=== PATIENT | male | born 1930 | race Caucasian/White ===

== ENCOUNTER 2018-09-17 11:00 | Inpatient (IN) | payer OTHER, MEDICARE ==
--- NOTE | 2018-09-12 10:46 | HP ---
Amended report to enter cosigning physician. HISTORY AND PHYSICAL: DATE OF SURGERY: 09/24/18 DATE OF OFFICE VISIT: 09/11/18 SURGEON: Sarina Montes MD* (dictated by FELICITY Escobar). PROCEDURE: Right total knee arthroplasty. CHIEF COMPLAINT: Right knee pain. HISTORY OF PRESENT ILLNESS: Mr. 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 He has failed conservative treatment and elected to proceed with the right total knee arthroplasty. PAST MEDICAL HISTORY: 1. Hypertension. 2. High cholesterol. 3. Diabetes. 4. Sleep apnea. PAST SURGICAL HISTORY: 1. Tonsillectomy. 2. Appendectomy. 3. Cyst removal from back. CURRENT MEDICATIONS: 1. Vitamin D. 2. Multivitamin. 3. Magnesium. 4. Nicotinamide riboside. 5. Pterostilbene 50 mg a day. 6. Irbesartan 150 mg a day. 7. Januvia 100 mg 1 tab before dinner. 8. Atorvastatin calcium 10 mg at q.h.s. 9. Metformin 500 mg twice a day. ALLERGIES: PENICILLIN and NYQUIL. FAMILY HISTORY: Diabetes, cancer, and stroke. SOCIAL HISTORY: He is an 87-year-old gentleman lives with his . He does not smoke or use drugs or alcohol. REVIEW OF SYSTEMS: A complete 14-point review of systems was reviewed with the patient, positive for diabetes. He denies history of DVT, PE, hepatitis, HIV, or anesthesia problems. PHYSICAL EXAMINATION GENERAL: He is a well developed, well nourished, in no acute distress. VITAL SIGNS: He stands 5 feet 6 inches tall, weighs 232 pounds, blood pressure 140/68, heart rate 70. HEENT: Normocephalic, atraumatic. NECK: Supple. No palpable lymph nodes. PULMONARY: Lungs are clear to auscultation bilaterally. CARDIO: Regular rate and rhythm. Strong S1 and S2. ABDOMEN: Soft, nontender, nondistended. NEUROLOGIC: He is alert and oriented x3. MUSCULOSKELETAL: Right lower extremity: The skin is intact. There are no open wounds or abrasions. There is a moderate effusion of the right knee joints. Some tenderness over the medial joint line. Range of motion is 20 to 120 degrees of flexion. He has a 2+ dorsalis pedis pulse. He is able to dorsiflex and plantarflex and has intact sensation. ASSESSMENT AND PLAN: Mr. Reyes is an 87-year-old gentleman with end-stage osteoarthritis of the right knee. He has failed conservative treatment and elected to proceed with the right total knee arthroplasty. The surgery was scheduled for 09/24/[address] Montes discussed the risks and benefits of the surgery at today's visit and all of his questions were answered. He will follow up with Dr. Montes 2 weeks after the surgery. FELICITY ESCOBAR [id number]/[facility] #: [id number] MARY JO
[2018-09-24] MEDS ORDERED: Tranexamic Acid 1,000 MG in NS 0.9% 50 ML* (outpatient use) IV SCH ×2
[2018-09-24] MEDS ORDERED: DiMENhydriNATE IV* 50 MG/ML VIAL IV PUSH PRN (05:42)
[2018-09-24] MEDS ORDERED: fentaNYL* 50 MCG/ML 2 ML VIAL (100 MCG VIAL) IV PRN (05:42)
[2018-09-24] MEDS ORDERED: oxyCODONE/Acetamin 5/325 MG* TAB PO PRN (05:42)
[2018-09-24] MEDS ORDERED: HYDROmorphone INJ1* 1 MG/ML SYRINGE IV PRN (05:42)
[2018-09-24] MEDS ORDERED: PROCHLORPERAZINE INJ 5 MG/ML 2 ML VIAL IV PRN (05:42)
[2018-09-24] MEDS ORDERED: Naloxone* 0.4 MG/ML 1 ML VIAL IV PRN (05:42)
--- OUTSIDE RECORDS SUMMARY | 2018-09-24 05:47 | XMS REPORT | Continuity of Care Document ---
:1930 External Reference #:[id number] Author Name Celine Scott Care Team Providers Name Role Phone Deysi Chen MD Primary Care Physician Unavailable Payers Date Identification Numbers Payment Provider Subscriber Policy Number: [id number] [employer] Maricarmen Eric Group Number: [id number] [address] Group Name: [facility] [place] [address] PayID: [id number] Advance Directives Type Date Description Status Comment Other Directive 09/13/2015 Health Care Proxy Current and Verified Problems Active Problems Provider Date Type 2 diabetes mellitus Erna Crenshaw M.D., FACP Onset: 09/15/2010 Hyperlipidemia Erna Crenshaw M.D., FACP Onset: 12/13/2010 Localized, primary osteoarthritis Sarina Montes M.D. 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 ETOH Use Rarely consumes alcohol Tobacco Use Start: Unknown Patient has never smoked Smoking Status Reviewed: 09/09/18 Patient has never smoked Exercise Exercises regularly Does Drik Chi, Weight Type/Frequency resistance training. Allergies, Adverse Reactions, Alerts Active Allergies Reaction Severity Comments Date Penicillin Urticaria Severe 01/13/2010 ALL "Cillins" 07/22/2018 Medications Active Medications SIG Qnty Indications Ordering Date Provider Irbesartan 1 by mouth every 90tabs I10 Hailey Bautista, 12/04/2017 150mg day N.P. Tablets R Knee Varus 09/09/18 reports 1units M17.11 Sarina Montes, 07/13/2017 Tufter Hand Brace not using use for M.D. ambulation at all times dx - severe r knee oa Onetouch Ultra Blue test up to three 300units Hailey Bautista, 09/10/2014 times a day or as N.P. Strips directed Metformin HCL ER Take 1 Tablet By 180tabs Hailey Bautista, 01/23/2014 Mouth Twice A Day N.P. 500mg Tablets ER 24HR Freestyle Lite Test test up to 4 times 650units Hailey Bautista, 10/01/2013 a day dx code: N.P. Strips e11.9 last seen 10/27/15 Freestyle Lite Blood check fingerstick 1units Erna Crenshaw, 09/26/2013 Glucose Monitoring daily M.D., FACP System Device Atorvastatin Calcium Take 1 Tablet By 90tabs Hailey Bautista, 06/04/2012 Mouth AT Bedtime N.P. 10mg Tablets Glucometer Erna Crenshaw, 07/21/2011 M.D., FACP Cpap pressure 16 Erna Crenshaw, 09/15/2010 M.D., FACP Cpap Mask And Erna Crenshaw, 09/15/2010 Supplies M.D., FACP Januvia Take 1 Tablet By 90tabs Hailey Bautista, 100mg Tablets Mouth 1 Hour N.P. Before Dinner Pterostilbene daily Unknown 50mg Nicotinamide daily Unknown Riboside Magnesium once a day Unknown 425mg Capsules Lovaza take 1 capsule 180caps Hailey Bautista, 1gm Capsules once a day N.P. Multivitamin 1 PO qd Unknown Vitamin D 400 1 po qd Unknown 2000Unit Chewtabs History Medications Azithromycin two tabs day one, 6tabs J20.9 Hailey Orrcarol, 07/04/2016 - 250mg one daily till N.P. 07/09/2016 Tablets gone Benzonatate one by mouth 30caps J20.9 Hailey Orrcarol, 07/04/2016 - 200mg three times daily N.P. 07/18/2016 Capsules as needed for cough T/S Test up to 4 100units Hailey Bautista, 04/19/2016 - Freestyle Strip times a day N.P. 04/27/2016 Freestyle Tamiflu 1 by mouth twice 10caps 466.0 Wade Horvath 07/15/2014 - 75mg Capsules a day x 5 days Mario Morales 09/28/2014 Zithromax Z-Manish as per directions 1Pack 466.0 Wade Horvath 07/15/2014 - 250mg Mario Morales 09/28/2014 Tablets Freestyle Lite two times daily 100units Hailey Bautista, 09/26/2013 - Lancets or as needed N.P. 04/27/2016 Valsartan-Hydrochlor Take 1 tablet by 90tabs I10 Hailey Bautista, 2013 - othiazide mouth daily N.P. 12/04/2017 160-12.5mg Tablets Ipratropium [place] instill 2 sprays 30units 478.9 Erna Crenshaw, 2013 - in each nostril M.D., FACP 09/25/2013 0.03% Solution twice a day Hydrocodone/Acetamin 1-2 tabs by mouth 12tabs 719.45 Erna Crenshaw, 2012 - ophen every 6 hours as M.D., FACP 09/25/2013 5-325mg Tablets needed Losartan Potassium 1 po qd 90tabs 401.1 Erna Crenshaw, 11/12/2012 - M.D., FACP 02/24/2013 50mg Tablets Valsartan/Hydrochlor Take 1 Tablet 90tabs 401.1 Erna Crenshaw, 06/04/2012 - othiazide Daily M.D., FACP 09/26/2013 160-12.5mg Tablets Azithromycin two tabs day one, 6tabs 466.0 Hailey Bautista, 06/04/2012 - 250mg one daily till N.P. 06/14/2012 Tablets gone Zolpidem Tartrate 1 tab at bedtime 20tabs 307.49 Erna Crenshaw, 08/24/2011 - 5mg as needed for M.D., [facility] 11/28/2011 Tablets sleep Provent SR Nasal Use as directed. 30units 307.49 Erna Crenshaw, 08/24/2011 - Device M.D., [facility] 11/28/2011 Test Strips use as tid 300units Erna Crenshaw, 07/21/2011 - directed M.D., [facility] 09/10/2014 Lancets use as directed 100units Erna Crenshaw, 07/21/2011 - M.D., [facility] 10/06/2014 Accu-Check Darlin use as directed 300units 250.00 Erna Crenshaw, 12/13/2010 - Test Strips M.D., [facility] 07/21/2011 Accu-Check Darlin use as directed 300units 250.00 Erna Crenshaw, 12/13/2010 - Lancet Drums M.D., [facility] 07/21/2011 Clindamycin HCL qid po 40caps Erna Crenshaw, 09/15/2010 - 150mg M.D., [facility] 12/13/2010 Capsules Physical Therapy Erna Crenshaw, 05/19/2010 - M.D., [facility] 09/15/2010 Right Shoulder Pain Freestyle Lite two times daily 100units Erna Rodon, 05/19/2010 - Lancets or as needed M.D., [facility] 12/13/2010 Freestyle Lite Test use as directed 100units Erna Crenshaw, 05/19/2010 - Strip two times daily M.D., [facility] 12/13/2010 or as needed dx:pcos/igt Loprox apply to affected 30gm Erna Crenshaw, 04/11/2010 - 0.77% Cream area bid M.D., FACP 12/13/2010 Zithromax Z-Manish two po initially 1Pack Erna Crenshaw, 03/28/2010 - 250mg then one po daily M.D., FACP 04/07/2010 Tablets Fluticasone 1 spray each 1bottle Erna Crenshaw, 03/28/2010 - Propionate nostril daily as M.D., FACP 04/07/2010 50mcg/Act needed Suspension Physical Therapy Erna Crenshaw, 01/17/2010 - R M.D., FACP 01/17/2010 Knee Aspirn 1 tablet daily 30tabs Ernamaria guadalupe Crenshaw, - 81mg Tablets M.D., FACP 07/21/2018 DR Miller HCT Take 1 Tablet 90tabs Erna Flower, - 160-12.5mg Daily M.D., FACP 06/04/2012 Tablets Lipitor Take 1 Tablet AT 90tabs Erna Flower, - 10mg Tablets Bedtime M.D., FACP 06/04/2012 Glucophage XR take 1 tablet 180tabs Hailey Varn, - 500mg twice a day N.P. 01/23/2014 Tablets ER 24HR [place]-3 & [place]-6 take one Unknown - Fish Oil capsule/tablet 07/21/2018 1200mg daily by mouth Capsules for ra Immunizations CPT Code Status Date Vaccine Lot # [id number] Given 01/15/2018 Influenza Virus Vaccine, Quadrivalent, Split, Preservative Free 30423 Given 11/27/2016 Pneumonia Vaccine [id number] Given 02/15/2015 Flu Vaccine NOS 96237 Given 10/06/2014 Pneumococcal Conjugate Vaccine 13 Valent For [id number] Intramuscular Use 81522 Given 01/31/2014 Influenza Virus Vaccine, Quadrivalent, Split, [id number] Preservative Free Q2036 Given 01/17/2013 Flulaval Vaccine [id number] Given 01/26/2012 Fluzone Vaccine [id number] 97972 Given 02/24/2011 Influenza Virus 3Yrs & Over 88449 Given 01/17/2010 Influenza Virus 3Yrs & Over 25156 Given 05/07/2008 Tetanus And Diptheria (Td) For Adult Use Preservative Free 73463 Given 05/07/2008 Tetanus And Diptheria (Td) For Adult Use Preservative Free 03774 Given 02/10/2008 Influenza Virus 3Yrs & Over 48625 Given 02/10/2008 Influenza Virus 3Yrs & Over 98215 Given 02/28/2007 Zoster (Zostavax) 49931 Given 02/28/2007 Influenza Virus 3Yrs & Over 77358 Given 02/28/2007 Influenza Virus 3Yrs & Over Vital Signs Date Vital Result Comment 09/09/2018 11:53am Height 65 inches 5'5" Weight 228.00 lb Heart Rate 75 /min BP Systolic Sitting 135 mmHg BP Diastolic Sitting 62 mmHg Body Temperature 97.7 F O2 % BldC Oximetry 96 % BMI (Body Mass Index) 37.9 kg/m2 07/22/2018 2:00pm Height 65 inches 5'5" Weight 226.00 lb Heart Rate 84 /min BP Systolic 138 mmHg BP Diastolic 60 mmHg Pain Level 0 BMI (Body Mass Index) 37.6 kg/m2 12/04/2017 9:16am Height 64.25 inches 5'4.25" Weight 225.00 lb Heart Rate 71 /min BP Systolic 138 mmHg BP Diastolic 88 mmHg Body Temperature 97.3 F O2 % BldC Oximetry 96 % BMI (Body Mass Index) 38.3 kg/m2 07/13/2017 10:13am Weight 232.50 lb Heart Rate 70 /min BP Systolic 138 mmHg BP Diastolic 72 mmHg Respiratory Rate 16 /min Body Temperature 98.0 F Pain Level 5 06/27/2017 3:49pm Weight 232.00 lb Heart Rate 69 /min BP Systolic 146 mmHg BP Diastolic 60 mmHg Body Temperature 98.3 F O2 % BldC Oximetry 96 % 12/04/2016 2:44pm Weight 235.00 lb Heart Rate 87 /min BP Systolic 118 mmHg BP Diastolic 60 mmHg Body Temperature 97.8 F O2 % BldC Oximetry 97 % 11/27/2016 2:16pm Height 64.25 inches 5'4.25" Weight 231.50 lb Heart Rate 78 /min BP Systolic 122 mmHg BP Diastolic 60 mmHg Body Temperature 97.8 F O2 % BldC Oximetry 97 % BMI (Body Mass Index) 39.4 kg/m2 07/04/2016 2:48pm Weight 230.50 lb Heart Rate 96 /min BP Systolic 130 mmHg BP Diastolic 60 mmHg Body Temperature 99.1 F O2 % BldC Oximetry 98 % 04/27/2016 8:40am Weight 228.00 lb Heart Rate 71 /min BP Systolic Sitting 140 mmHg BP Diastolic Sitting 60 mmHg Body Temperature 98.1 F O2 % BldC Oximetry 98 % 10/27/2015 10:42am Weight 221.00 lb Heart Rate 68 /min BP Systolic Sitting 130 mmHg BP Diastolic Sitting 82 mmHg Respiratory Rate 14 /min Body Temperature 98.1 F O2 % BldC Oximetry 98 % 09/10/2015 3:23pm Height 64.4 inches 5'4.40" Weight 222.25 lb Heart Rate 62 /min BP Systolic Sitting 136 mmHg BP Diastolic Sitting 55 mmHg Body Temperature 97.8 F O2 % BldC Oximetry 97 % BMI (Body Mass Index) 37.7 kg/m2 05/28/2015 4:02pm Height 65 inches 5'5" Weight 216.00 lb Heart Rate 64 /min BP Systolic Sitting 130 mmHg BP Diastolic Sitting 80 mmHg Respiratory Rate 15 /min O2 % BldC Oximetry 98 % BMI (Body Mass Index) 35.9 kg/m2 04/27/2015 9:06am Height 65 inches 5'5" Weight 216.00 lb Heart Rate 70 /min BP Systolic Sitting 126 mmHg BP Diastolic Sitting 82 mmHg Respiratory Rate 16 /min Body Temperature 98.4 F O2 % BldC Oximetry 98 % BMI (Body Mass Index) 35.9 kg/m2 10/06/2014 9:19am Height 65 inches 5'5" Weight 210.50 lb Heart Rate 66 /min BP Systolic Sitting 140 mmHg BP Diastolic Sitting 62 mmHg BMI (Body Mass Index) 35.0 kg/m2 07/15/2014 3:35pm Height 66 inches 5'6" Weight 208.75 lb Heart Rate 88 /min BP Systolic Sitting 138 mmHg BP Diastolic Sitting 54 mmHg Body Temperature 99.8 F O2 % BldC Oximetry 97 % BMI (Body Mass Index) 33.7 kg/m2 04/06/2014 8:50am Height 66 inches 5'6" Weight 209.00 lb Heart Rate 62 /min BP Systolic Sitting 98 mmHg BP Diastolic Sitting 60 mmHg Body Temperature 98.1 F O2 % BldC Oximetry 98 % BMI (Body Mass Index) 33.7 kg/m2 03/30/2014 9:27am Height 66 inches 5'6" Weight 204.00 lb Heart Rate 81 /min BP Systolic 130 mmHg BP Diastolic 68 mmHg BMI (Body Mass Index) 32.9 kg/m2 09/25/2013 10:20am Weight 209.25 lb Heart Rate 68 /min BP Systolic 122 mmHg BP Diastolic 52 mmHg Respiratory Rate 16 /min 06/30/2013 9:01am Weight 213.00 lb Heart Rate 72 /min BP Systolic Sitting 122 mmHg BP Diastolic Sitting 76 mmHg Respiratory Rate 15 /min Body Temperature 97.6 F 04/03/2013 3:46pm Weight 216.00 lb Heart Rate 74 /min BP Systolic Sitting 134 mmHg BP Diastolic Sitting 82 mmHg 02/24/2013 9:07am Weight 223.25 lb Heart Rate 60 /min BP Systolic Sitting 118 mmHg BP Diastolic Sitting 54 mmHg 11/12/2012 9:21am Weight 242.00 lb Heart Rate 76 /min BP Systolic Sitting 128 mmHg BP Diastolic Sitting 58 mmHg 06/04/2012 11:02am Height 65 inches 5'5" Weight 235.00 lb Heart Rate 78 /min BP Systolic Sitting 128 mmHg BP Diastolic Sitting 60 mmHg Body Temperature 98.5 F BMI (Body Mass Index) 39.1 kg/m2 05/15/2012 9:13am Height 65 inches 5'5" Weight 240.00 lb Heart Rate 80 /min BP Systolic Sitting 128 mmHg BP Diastolic Sitting 54 mmHg BMI (Body Mass Index) 39.9 kg/m2 05/15/2012 9:08am Height 65 inches 5'5" 11/28/2011 8:58am Height 65 inches 5'5" Weight 232.50 lb Heart Rate 76 /min BP Systolic Sitting 118 mmHg BP Diastolic Sitting 54 mmHg BMI (Body Mass Index) 38.7 kg/m2 08/24/2011 9:15am Height 65 inches 5'5" Weight 228.00 lb Heart Rate 64 /min BP Systolic Sitting 128 mmHg BP Diastolic Sitting 54 mmHg BMI (Body Mass Index) 37.9 kg/m2 04/26/2011 10:05am Height 65 inches 5'5" Weight 229.00 lb Heart Rate 68 /min BP Systolic Sitting 132 mmHg BP Diastolic Sitting 80 mmHg BMI (Body Mass Index) 38.1 kg/m2 12/13/2010 10:49am Height 65 inches 5'5" Weight 230.00 lb Heart Rate 72 /min BP Systolic Sitting 118 mmHg L BP Diastolic Sitting 62 mmHg L BMI (Body Mass Index) 38.3 kg/m2 09/15/2010 10:21am Height 65 inches 5'5" Weight 227.00 lb Heart Rate 80 /min BP Systolic Sitting 120 mmHg BP Diastolic Sitting 60 mmHg BMI (Body Mass Index) 37.8 kg/m2 06/06/2010 9:49am Weight 223.00 lb Heart Rate 60 /min BP Systolic 122 mmHg BP Diastolic 60 mmHg 05/19/2010 10:06am Weight 228.00 lb Heart Rate 78 /min BP Systolic 122 mmHg BP Diastolic 70 mmHg 03/28/2010 3:02pm Weight 229.00 lb Heart Rate 72 /min BP Systolic Sitting 120 mmHg BP Diastolic Sitting 50 mmHg Body Temperature 98.0 F oral Results Test Date Facility Test Result H/L Range Note CBC Auto Diff 09/09/2018 [facility] White Blood 10.2 10^3/uL N 3.5-10.[address] [place] [address] [phone] Red Blood Count 4.83 10^6/uL N 4.18-5.48 Hemoglobin 14.8 g/dL N 14.0-18.0 Hematocrit 44 % N 42-52 Mean Corpuscular Volume 91 fL N 80-94 Mean Corpuscular Hemoglobin 31 pg N 27-31 Mean Corpuscular HGB Conc 34 g/dL N 31-36 Red Cell Distribution Width 14 % N 10.5-15 Platelet Count 319 10^3/uL N 150-450 Mean Platelet Volume 7.6 fL N 7.4-10.4 Abs Neutrophils 5.9 10^3/uL N 1.5-7.7 Abs Lymphocytes 3.1 10^3/uL N 1.0-4.8 Abs Monocytes 0.9 10^3/uL High 0-0.8 Abs Eosinophils 0.1 10^3/uL N 0-0.6 Abs Basophils 0.1 10^3/uL N 0-0.2 Abs Nucleated RBC 0.0 10^3/uL Granulocyte % 58.4 % Lymphocyte % 30.8 % Monocyte % 9.0 % Eosinophil % 1.3 % Basophil % 0.5 % Nucleated Red Blood Cells % 0.2 Comp Metabolic Panel 09/09/2018 [facility] Sodium 140 mmol/L N 135-[address] [place] [address] [phone] Potassium 4.5 mmol/L N 3.5-5.0 Chloride 102 mmol/L N 101-111 Co2 Carbon Dioxide 30 mmol/L N 22-32 Anion Gap 8 mmol/L N 2-11 Glucose 143 mg/dL High 70-100 Blood Urea Nitrogen 13 mg/dL N 6-24 Creatinine 0.97 mg/dL N 0.67-1.17 BUN/Creatinine Ratio 13.4 N 8-20 Calcium 9.7 mg/dL N 8.6-10.3 Total Protein 7.0 g/dL N 6.4-8.9 Albumin 4.2 g/dL N 3.2-5.2 Globulin 2.8 g/dL N 2-4 Albumin/Globulin Ratio 1.5 N 1-3 Total Bilirubin 0.50 mg/dL N 0.2-1.0 Alkaline Phosphatase 90 U/L N 34-104 Alt 28 U/L N 7-52 Ast 19 U/L N 13-39 Egfr Non- 73.4 >60 Egfr 88.8 >60 1 Urinalysis Profile 09/09/2018 [facility] Urine Color Yellow [address] [place] [address] [phone] Urine Appearance Clear Urine Specific [place] 1.008 Low 1.010-1.030 Urine pH 8.0 N 5-9 Urine Urobilinogen Negative Negative Urine Ketones Negative Negative Urine Protein Negative Negative Urine Leukocytes Negative Negative Urine Blood Negative Negative Urine Nitrite Negative Negative Urine Bilirubin Negative Negative Urine Glucose Negative Negative Laboratory 09/06/2018 [facility] Hepatitis B Nonreactive Nonreactive test finding [address] [place] [address] [phone] Hepatitis C 09/06/2018 [facility] HCV Index < 0.0 Index Antibody [address] [place] [address] [phone] Hepatitis C Antibody Nonreactive Nonreactive HIV 1/2 AB 09/06/2018 [facility] HIV 1 2 Nonreactive Nonreactive [address] [place] [address] [phone] Laboratory test 09/06/2018 [facility] Syphillis Negative Negative finding [address] Igg W/[place] [address] [phone] Max Stone 09/06/2018 [facility] Ebv Capsid Positive Negative Comprehensive [address] [place] [address] [phone] Ebv Capsid Ag IgM Ab Negative Negative Max-Stone Nuclear Antigen Positive Negative Max-Stone Virus Interp See Comment 3 Laboratory test 09/06/2018 [facility] Hepatitis A IgM Negative Negative [address] [place] [address] [phone] HTLV 1/2 AB Negative Negative 5 CMV 09/05/2018 [facility] Cytomegalovirus Positive Abnormal Negative 6 Igg/Igm [address] [place] [address] [phone] Cytomegalovirus IgM Antibody Negative Negative Lipid Profile 11/27/2017 [facility] Triglycerides 81 mg/dL 7 (Trig/Chol/HDL) [address] [place] [address] [phone] Cholesterol 131 mg/dL 8 HDL Cholesterol 43.9 mg/dL 9 LDL Cholesterol 71 mg/dL 10 Laboratory test 11/27/2017 [facility] Hemoglobin A1c 6.0 % High 4.0-5.[address] (Glyco HGB) [place] [address] [phone] Urine 11/27/2017 [facility] Ur Microalbumin < 15.[address] (mg/L) [place] [address] [phone] Urine Creatinine 145.02 mg/dL Urine Microalbumin/Creatinine TNP <31 12 Comp Metabolic Panel 11/27/2017 [facility] Sodium 141 mmol/L N 135-[address] [place] [address] [phone] Potassium 4.8 mmol/L N 3.5-5.0 Chloride 107 mmol/L N 101-111 Co2 Carbon Dioxide 26 mmol/L N 22-32 Anion Gap 8 mmol/L N 2-11 Glucose 121 mg/dL High 70-100 Blood Urea Nitrogen 19 mg/dL N 6-24 Creatinine 1.07 mg/dL N 0.67-1.17 BUN/Creatinine Ratio 17.8 N 8-20 Calcium 9.2 mg/dL N 8.6-10.3 Total Protein 6.5 g/dL N 6.4-8.9 Albumin 4.1 g/dL N 3.2-5.2 Globulin 2.4 g/dL N 2-4 Albumin/Globulin Ratio 1.7 N 1-3 Total Bilirubin 0.30 mg/dL N 0.2-1.0 Alkaline Phosphatase 74 U/L N 34-104 Alt 23 U/L N 7-52 Ast 19 U/L N 13-39 Egfr Non- 65.5 >60 Egfr 79.3 >60 13 Xray 07/13/2017 [facility] Knee 3 Views RT <pending> [address] [place] [address] [phone] Laboratory test 06/27/2017 [facility] Hemoglobin A1c 6.9 5-7 finding Lipid Profile 11/17/2016 [facility] Triglycerides 126 mg/dL N 14 (Trig/Chol/HDL) [address] [place], [place] [id number] [phone] Cholesterol 140 mg/dL N 15 HDL Cholesterol 39.7 mg/dL N 16 LDL Cholesterol 75 mg/dL N 17 Laboratory test 11/17/2016 [facility] Hemoglobin A1c 6.5 % High Less [address] (Glyco HGB) than 6.0 [place], [place] [id number] [phone] Urine 11/17/2016 [facility] Urine 122.[address] Creatinine mg/[place] [address] [phone] Ur Microalbumin (mg/L) < 15.0 mg/L N Urine Microalbumin/Creatinine TNP ug/mg N <31 19 Laboratory test 04/27/2016 [facility] Hemoglobin A1c 5.6 5-7 finding Lipid Profile 10/18/2015 [facility] Triglycerides 94 mg/dL N 20 (Trig/Chol/HDL) [address] [place] [address] [phone] Cholesterol 143 mg/dL N 21 HDL Cholesterol 41.1 mg/dL N 22 LDL Cholesterol 83 mg/dL N 23 Laboratory test 10/18/2015 [facility] Hemoglobin A1c 5.7 % N Less [address] (Glyco HGB) than 6.0 [place] [address] [phone] Urine 10/18/2015 [facility] Ur Microalbumin < 5.[address] Microalbumin [address] (mg/L) mg/[place] [address] [phone] Urine Creatinine 102.57 mg/dL N Urine Microalbumin/Creatinine TNP ug/mg N <31 25 Laboratory test 09/22/2015 [facility] Point of 135 mg/dL High 74-106 [address] Care Glucose [place], [place] [id number] [phone] Laboratory test 09/15/2015 [facility] Point of 144 mg/dL High 74-106 [address] [place] [address] [phone] Comp Metabolic 09/10/2015 [facility] Sodium 138 mmol/L N 133- [address] [place] [address] [phone] Potassium 4.5 mmol/L N 3.5-5.0 Chloride 106 mmol/L N 101-111 Co2 Carbon Dioxide 27 mmol/L N 22-32 Anion Gap 5 mmol/L N 2-11 Glucose 88 mg/dL N 70-100 Blood Urea Nitrogen 27 mg/dL High 6-24 Creatinine 0.93 mg/dL N 0.67-1.17 BUN/Creatinine Ratio 29.0 High 8-20 Calcium 8.7 mg/dL N 8.6-10.3 Total Protein 6.4 g/dL N 6.4-8.9 Albumin 4.0 g/dL N 3.2-5.2 Globulin 2.4 g/dL N 2-4 Albumin/Globulin Ratio 1.7 N 1-3 Total Bilirubin 0.40 mg/dL N 0.2-1.0 Alkaline Phosphatase 56 U/L N 34-104 Alt 20 U/L N 7-52 Ast 19 U/L N 13-39 Egfr Non- 77.6 N >60 Egfr 99.8 N >60 28 CBC Auto Diff 09/10/2015 [facility] White Blood 8.0 10^3/uL N 3.5-10.[address] [place] [address] [phone] Red Blood Count 4.45 10^6/uL N 4.0-5.4 Hemoglobin 13.7 g/dL Low 14.0-18.0 Hematocrit 41 % Low 42-52 Mean Corpuscular Volume 93 fL N 80-94 Mean Corpuscular Hemoglobin 31 pg N 27-31 Mean Corpuscular HGB Conc 33 g/dL N 31-36 Red Cell Distribution Width 14 % N 10.5-15 Platelet Count 263 10^3/uL N 150-450 Mean Platelet Volume 8 um3 N 7.4-10.4 Abs Neutrophils 4.3 10^3/uL N 1.5-7.7 Abs Lymphocytes 2.8 10^3/uL N 1.0-4.8 Abs Monocytes 0.7 10^3/uL N 0-0.8 Abs Eosinophils 0.2 10^3/uL N 0-0.6 Abs Basophils 0.1 10^3/uL N 0-0.2 Abs Nucleated RBC 0 10^3/uL N Granulocyte % 53.4 % N 38-83 Lymphocyte % 35.2 % N 25-47 Monocyte % 8.5 % N 1-9 Eosinophil % 2.0 % N 0-6 Basophil % 0.9 % N 0-2 Nucleated Red Blood Cells % 0 N Laboratory test 04/27/2015 [facility] Hemoglobin A1c 5.3 5-7 finding Laboratory test 10/28/2014 [facility] Surgical Pathology SEE RESULT [address] [place] [address] [phone] Urine Microalbumin 10/06/2014 [facility] Ur Microalbumin < 5.0 mg/L N Random [address] (mg/L) [place] [address] [phone] Urine Creatinine 38.56 mg/dL N Urine Microalbumin/Creatinine TNP ug/mg N <31 30 Laboratory test 10/06/2014 [facility] Hemoglobin A1c 5.0 5-7 finding Comp Metabolic 09/29/2014 [facility] Sodium 138 mmol/L N 133- 145 [address] [place] [address] [phone] Potassium 3.9 mmol/L N 3.5-5.0 Chloride 105 mmol/L N 101-111 Co2 Carbon Dioxide 29 mmol/L N 22-32 Anion Gap 4 mmol/L N 2-11 Glucose 111 mg/dL High 70-100 Blood Urea Nitrogen 19 mg/dL N 6-24 Creatinine 1.08 mg/dL N 0.67-1.17 BUN/Creatinine Ratio 17.6 N 8-20 Calcium 9.1 mg/dL N 8.6-10.3 Total Protein 6.3 g/dL Low 6.4-8.9 Albumin 4.1 g/dL N 3.2-5.2 Globulin 2.2 g/dL N 2-4 Albumin/Globulin Ratio 1.9 N 1-3 Total Bilirubin 0.70 mg/dL N 0.2-1.0 Alkaline Phosphatase 51 U/L N 34-104 Alt 16 U/L N 7-52 Ast 17 U/L N 13-39 Egfr Non- 65.5 N >60 Egfr 84.2 N >60 32 Lipid Profile 09/29/2014 [facility] Triglycerides 88 mg/dL N 33 (Trig/Chol/HDL) [address] [place] [address] [phone] Cholesterol 116 mg/dL N 34 HDL Cholesterol 38.8 mg/dL N 35 LDL Cholesterol 60 mg/dL N 36 Laboratory test 04/06/2014 [facility] Hemoglobin A1c 5.1 5-7 finding Laboratory test 06/25/2013 [facility] Hemoglobin A1c 5.4 % Less than [address] 6[address]0 [place] [address] [phone] Basic Metabolic 04/03/2013 [facility] Sodium 136 mmol/L 133- [address] [place] [address] [phone] Potassium 4.7 mmol/L 3.5-5.0 Chloride 101 mmol/L 101-111 Co2 Carbon Dioxide 29.0 mmol/L 22-32 Anion Gap 6.0 mmol/L 2-11 Glucose 94 mg/dL 70-100 Blood Urea Nitrogen 24 mg/dL 6-24 Creatinine 0.90 mg/dL 0.50-1.40 BUN/Creatinine Ratio 26.7 High 8-20 Calcium 9.4 mg/dL 8.1-9.9 Egfr Non- 81.0 >60 Egfr 104.2 >60 38 Urine Microalbumin 02/24/2013 [facility] Ur Microalbumin < 2 mg/ L [address] (mg/L) [place] [address] [phone] Urine Creatinine 62.5 mg/dL Urine Microalbumin/Creatinine 3.2 Less Than 31 Lipid Profile 02/19/2013 [facility] Triglycerides 74 mg/dL 40 -200 (Trig/Chol/HDL) [address] [place] [address] [phone] Cholesterol 144 mg/dL Less than 200 HDL Cholesterol 39 mg/dL Low 40-60 40 Cholesterol/HDL Ratio 3.7 Average 1-4.44 LDL Cholesterol 90.2 Less Than 100 41 Laboratory test 02/19/2013 [facility] Hemoglobin A1c 5.7 % Less than [address] [place] [address] [phone] Laboratory test 11/12/2012 [employer] In House Hemoglobin A1c 6.4 5-7 finding Laboratory test 11/05/2012 [facility] Hemoglobin A1c 6.7 % High Less than [address] [place] [address] [phone] Comp Metabolic 11/05/2012 [facility] Sodium 141 133-[address] mmol/[place] [address] [phone] Potassium 4.5 mmol/L 3.5-5.0 Chloride 107 mmol/L 101-111 Co2 Carbon Dioxide 28.0 mmol/L 22-32 Anion Gap 6.0 mmol/L 2-11 Glucose 122 mg/dL High 70-100 Blood Urea Nitrogen 16 mg/dL 6-24 Creatinine 1.10 mg/dL 0.50-1.40 BUN/Creatinine Ratio 14.5 8-20 Calcium 9.1 mg/dL 8.1-9.9 Total Protein 6.4 g/dL 6.2-8.1 Albumin 3.6 g/dL 3.2-5.2 Globulin 2.8 g/dL 2-4 Albumin/Globulin Ratio 1.3 1-3 Total Bilirubin 0.8 mg/dL 0.4-1.5 Alkaline Phosphatase 58 U/L 30-110 Alt 37 U/L 14-54 Ast 22 U/L 12-42 Egfr Non- 64.2 >60 Egfr 82.6 >60 44 Lipid Profile 11/05/2012 [facility] Triglycerides 106 mg/dL 40-200 (Trig/Chol/HDL) [address] [place] [address] [phone] Cholesterol 132 mg/dL Less than 200 HDL Cholesterol 35 mg/dL Low 40-60 45 Cholesterol/HDL Ratio 3.8 Average 1-4.44 LDL Cholesterol 75.8 Less Than 100 46 Laboratory test 05/15/2012 Senior Safety Support [employer] In House Hemoglobin A1c 6.3 5-7 finding Urine Microalbumin 11/22/2011 [facility] Microalbumin (MG/L) 3.0 mg/L Random [address] [place] [address] [phone] Urine Creatinine 156.0 mg/dL Nasim Alb/Creatinine Ratio 1.9 UG/MG Less Than 30 47 Comp Metabolic Panel 11/22/2011 [facility] Sodium 136 mmol/L 135-[address] [place] [address] [phone] Potassium 3.9 mmol/L 3.5-5.0 Chloride 103 mmol/L 101-111 Co2 (Carbon Dioxide) 28.0 mmol/L 22-32 Anion Gap 5.0 mmol/L 2-11 48 Glucose 115 mg/dL High 70-100 BUN 16 mg/dL 6-24 Creatinine 1.2 mg/dL 0.50-1.40 One Over Creatinine 0.83 BUN/Creatinine Ratio 13.3 8-20 Calcium 8.7 mg/dL 8.1-9.9 Total Protein 5.7 GM/DL Low 6.2-8.1 Albumin 3.4 GM/DL 3.2-5.2 Globulin 2.3 GM/DL 2-4 Albumin/Globulin Ratio 1.5 1-3 Bilirubin Total 0.9 mg/dL 0.4-1.5 49 Alkaline Phosphatase 65 U/L 39-117 Alt (SGPT) 28 U/L 17-63 Ast (Sgot) 21 U/L 12-42 eGFR Non- 58.3 > 60 eGFR 74.9 > 60 50 Lipid Profile 11/22/2011 [facility] Triglyceride 80 mg/dL 40- 200 (Trig/Chol/HDL) [address] [place] [address] [phone] Cholesterol 123 mg/dL Less Than 200 51 High Density Lipoprotein 38 mg/dL Low 40-60 52 Cholesterol/HDL Ratio 3.24 AVERAGE 1-4.97 Low Density Lipoprotein 69 mg/dL Less Than 100 53 Laboratory test 11/22/2011 [facility] Hemoglobin A1c 6.0 % Less [address] [place] [address] [phone] Laboratory test 08/21/2011 [facility] Hemoglobin A1c 5.9 % Less [address] [place] [address] [phone] Laboratory test 04/18/2011 [facility] Hemoglobin A1c 5.7 % Less [address] [place] [address] [phone] Order 12/13/2010 [facility] urine Negative [address] [place] [address] [phone] Comp Metabolic 12/06/2010 [facility] Sodium 140 mmol/L 135- [address] [place] [address] [phone] Potassium 4.2 mmol/L 3.5-5.0 Chloride 103 mmol/L 101-111 Co2 (Carbon Dioxide) 30.0 mmol/L 22-32 Anion Gap 7.0 mmol/L 2-11 57 Glucose 111 mg/dL High 70-100 BUN 12 mg/dL 6-24 Creatinine 1.00 mg/dL 0.50-1.40 One Over Creatinine 1.00 BUN/Creatinine Ratio 12.0 8-20 Calcium 9.1 mg/dL 8.1-9.9 Total Protein 6.4 GM/DL 6.2-8.1 Albumin 3.8 GM/DL 3.2-5.2 Globulin 2.6 GM/DL 2-4 Albumin/Globulin Ratio 1.5 1-3 Bilirubin Total 0.8 mg/dL 0.4-1.5 58 Alkaline Phosphatase 65 U/L 39-117 Alt (SGPT) 32 U/L 17-63 Ast (Sgot) 24 U/L 12-42 eGFR Non- 72.1 > 60 eGFR 92.7 > 60 59 Lipid Profile 12/06/2010 [facility] Triglyceride 68 mg/dL 40- 200 (Trig/Chol/HDL) [address] [place] [address] [phone] Cholesterol 128 mg/dL Less Than 200 60 High Density Lipoprotein 38 mg/dL Low 40-60 61 Cholesterol/HDL Ratio 3.37 AVERAGE 1-4.97 Low Density Lipoprotein 76 mg/dL Less Than 100 62 Laboratory test 12/06/2010 [facility] Hemoglobin A1c 6.0 % Less Than [address] [place] [address] [phone] 1 Because ethnic data is not always readily available, this report includes an eGFR for both -Americans and non- Americans. The National Kidney Disease Education Program (NKDEP) does not endorse the use of the MDRD equation for patients that are not between the ages of 18 and 70, are , have extremes of body size, muscle mass, or nutritional status, or are non- or non-. According to the National Kidney Foundation, irrespective of diagnosis, the stage of the disease is based on the level of kidney function: Stage Description GFR(mL/min/1.73 m(2)) 1 Kidney damage with normal or decreased GFR 90 2 Kidney damage with mild decrease in GFR 60-89 3 Moderate decrease in GFR 30-59 4 Severe decrease in GFR 15-29 5 Kidney failure <15 (or dialysis) 2 It is recognized that currently available assays for the detection of antibodies to HIV-1 and/or HIV-2 may not detect all infected individuals. HIV antibodies may be undetectable in some stages of the infection and in some clinical conditions. The performance of this assay has not been established for populations of infants or children. Assayed by Chemiluminescence Microparticle Immunoassay on the Siemens Advia Centaur CP. Values obtained with different methods or kits cannot be used interchangeably.The diagnostic specificity of the ADVIA Centaur 1/O/2 Enhanced assay in the low risk population was 99.90% (6052/6058) with a 95% confidence interval of 99.78 to 99.96%. 3 RESULT: Results suggest past infection. ADDITIONAL INFORMATION In most populations, at least 90% of the adult population will have been infected with EBV sometime in the past and therefore, will be positive for anti-VCA/IgG and anti- EBNA. Antibodies to EBNA develop 6-8 weeks after primary infection and remain present for life. Presence of VCA/ IgM antibodies indicates recent primary infection with EBV. Test Performed by: [place] [address] 4 Result does not exclude the possibility of exposure to hepatitis A virus. Antibody level during early infection stage may be below the limit of detection of the assay. Test Performed by: [place] [address] 5 Test Performed by: [place] [address] 6 Test Performed by: [place] [address] 7 Desirable: <150 Borderline High: 150-199 High: 200-499 Very High: >500 8 Desirable: <200 Borderline High: 200-239 High: >239 9 Low: <40 Desirable: 40-60 High: >60 10 Desirable: <100 Near Optimal: 100-129 Borderline High: 130-159 High: 160-189 Very High: >189 11 Therapeutic target for the treatment of diabetes mellitus patients is <7% HBA1C, and in selective patients <6.0%. Please refer to [place] [employer] diabetic care guidelines for further information. 12 Unable to calculate due to low microalbumin 13 Because ethnic data is not always readily available, this report includes an eGFR for both -Americans and non- Americans. The National Kidney Disease Education Program (NKDEP) does not endorse the use of the MDRD equation for patients that are not between the ages of 18 and 70, are , have extremes of body size, muscle mass, or nutritional status, or are non- or non-. According to the National Kidney Foundation, irrespective of diagnosis, the stage of the disease is based on the level of kidney function: Stage Description GFR(mL/min/1.73 m(2)) 1 Kidney damage with normal or decreased GFR 90 2 Kidney damage with mild decrease in GFR 60-89 3 Moderate decrease in GFR 30-59 4 Severe decrease in GFR 15-29 5 Kidney failure <15 (or dialysis) 14 Desirable <150 Borderline high 150-199 High 200-499 Very High >500 15 Desirable <200 Borderline high 200-239 High >239 16 Low <40 Desirable: 40-60 High: >60 17 Desirable: <100 mg/dL Near Optimal: 100-129 mg/dL Borderline High: 130-159 mg/dL High: 160-189 mg/dL Very High: >189 mg/dL 18 Therapeutic target for the treatment of diabetes Mellitus patients is <7% HBA1C, and in selective patients <6.0%.Please refer to [place] [employer] Diabetic care guidelines for further information. 19 Unable to calculate due to low microalbumin 20 Desirable <150 Borderline high 150-199 High 200-499 Very High >500 21 Desirable <200 Borderline high 200-239 High >239 22 Low <40 Desirable: 40-60 High: >60 23 Desirable: <100 mg/dL Near Optimal: 100-129 mg/dL Borderline High: 130-159 mg/dL High: 160-189 mg/dL Very High: >189 mg/dL 24 Therapeutic target for the treatment of diabetes Mellitus patients is <7% HBA1C, and in selective patients <6.0%.Please refer to [place] [employer] Diabetic care guidelines for further information. 25 Unable to calculate due to low microalbumin 26 Factory Laborer: [id number] CHARLI ALEJANDRE 27 Factory Laborer: [id number] KO GONZALEZ 28 Because ethnic data is not always readily available, this report includes an eGFR for both -Americans and non- Americans. The National Kidney Disease Education Program (NKDEP) does not endorse the use of the MDRD equation for patients that are not between the ages of 18 and 70, are , have extremes of body size, muscle mass, or nutritional status, or are non- or non-. According to the National Kidney Foundation, irrespective of diagnosis, the stage of the disease is based on the level of kidney function: Stage Description GFR(mL/min/1.73 m(2)) 1 Kidney damage with normal or decreased GFR 90 2 Kidney damage with mild decrease in GFR 60-89 3 Moderate decrease in GFR 30-59 4 Severe decrease in GFR 15-29 5 Kidney failure <15 (or dialysis) 29 SEE RESULT BELOW Name: MARICARMEN HOWELL : [address]: Servando Rodriguez MD Acct: [id number] Unit: [id number] AGE: 84 Location: ENDO Re10/28/14 SEX: M Status: REG REF SPEC: [id number] POOL: 10/28/14-[address] [facility] [address]: Servando Rodriguez MD REQ: [id number] RECD: 10/28/14-6060 STATUS: SHELLI SALAS DR: Hailey Bautista PLASTIC SURGERY COORDINATOR _ ORDERED: LEVEL IV FINAL DIAGNOSIS Colon, 35 cm, biopsy: -- Hyperplastic polyp. CLINICAL HISTORY Screening colonoscopy POST-OPERATIVE DIAGNOSIS Screening colonoscopy into cecum, prep good - small sigmoid colon polyp removed, sigmoid diverticulosis. GROSS DESCRIPTION The specimen is received in formalin labeled, Colon Polyp at 35 cm, and consists of a 0.6 x 0.5 x 0.1 cm wayne mucosal shave, which is submitted entirely in one cassette. Signed (signature on file) Jose Francisco Smith MD 134 END OF REPORT * ML=Testing performed at Main Lab DEPARTMENT OF PATHOLOGY, [address] [place] [address] Jose Francisco Smith M.D. Director [facility] # [id number] 30 Unable to calculate due to low microalbumin 31 PT IS FASTING 32 Because ethnic data is not always readily available, this report includes an eGFR for both -Americans and non- Americans. The National Kidney Disease Education Program (NKDEP) does not endorse the use of the MDRD equation for patients that are not between the ages of 18 and 70, are , have extremes of body size, muscle mass, or nutritional status, or are non- or non-. According to the National Kidney Foundation, irrespective of diagnosis, the stage of the disease is based on the level of kidney function: Stage Description GFR(mL/min/1.73 m(2)) 1 Kidney damage with normal or decreased GFR 90 2 Kidney damage with mild decrease in GFR 60-89 3 Moderate decrease in GFR 30-59 4 Severe decrease in GFR 15-29 5 Kidney failure <15 (or dialysis) 33 Desirable <150 Borderline high 150-199 High 200-499 Very High >500 34 Desirable <200 Borderline high 200-239 High >239 35 Low <40 Desirable: 40-60 High: >60 36 Desirable: <100 mg/dL Near Optimal: 100-129 mg/dL Borderline High: 130-159 mg/dL High: 160-189 mg/dL Very High: >189 mg/dL 37 Therapeutic target for the treatment of diabetes Mellitus patients is <7% HBA1C, and in selective patients <6.0%.Please refer to [place] [employer] Diabetic care guidelines for further information. 38 Because ethnic data is not always readily available, this report includes an eGFR for both -Americans and non- Americans. The National Kidney Disease Education Program (NKDEP) does not endorse the use of the MDRD equation for patients that are not between the ages of 18 and 70, are , have extremes of body size, muscle mass, or nutritional status, or are non- or non-. According to the National Kidney Foundation, irrespective of diagnosis, the stage of the disease is based on the level of kidney function: Stage Description GFR(mL/min/1.73 m(2)) 1 Kidney damage with normal or decreased GFR 90 2 Kidney damage with mild decrease in GFR 60-89 3 Moderate decrease in GFR 30-59 4 Severe decrease in GFR 15-29 5 Kidney failure <15 (or dialysis) 39 Microalbuminuria in a random sample is defined as: Microalbumin/Creatinine ratio of 30-299 ug/mg. 40 HDL Interpretation: Undesirable: High Risk: Less than 40 mg/dL Desirable: Low Risk: Greater than 60 mg/dL 41 LDL Interpretation: Low Risk Optimal Level: LDL Less than 100 mg/dL Near or Above Optimal: LDL 100-129 mg/dL Borderline High Risk: LDL 130-159 mg/dL High Risk: LDL 160-189 mg/dL Very High Risk: LDL Greater than 189 mg/dL 42 Therapeutic target for the treatment of diabetes Mellitus patients is <7% HBA1C, and in selective patients <6.0%.Please refer to [place] [employer] Diabetic care guidelines for further information. 43 Therapeutic target for the treatment of diabetes Mellitus patients is <7% HBA1C, and in selective patients <6.0%.Please refer to [place] [employer] Diabetic care guidelines for further information. 44 Because ethnic data is not always readily available, this report includes an eGFR for both -Americans and non- Americans. The National Kidney Disease Education Program (NKDEP) does not endorse the use of the MDRD equation for patients that are not between the ages of 18 and 70, are , have extremes of body size, muscle mass, or nutritional status, or are non- or non-. According to the National Kidney Foundation, irrespective of diagnosis, the stage of the disease is based on the level of kidney function: Stage Description GFR(mL/min/1.73 m(2)) 1 Kidney damage with normal or decreased GFR 90 2 Kidney damage with mild decrease in GFR 60-89 3 Moderate decrease in GFR 30-59 4 Severe decrease in GFR 15-29 5 Kidney failure <15 (or dialysis) 45 HDL Interpretation: Undesirable: High Risk: Less than 40 mg/dL Desirable: Low Risk: Greater than 60 mg/dL 46 LDL Interpretation: Low Risk Optimal Level: LDL Less than 100 mg/dL Near or Above Optimal: LDL 100-129 mg/dL Borderline High Risk: LDL 130-159 mg/dL High Risk: LDL 160-189 mg/dL Very High Risk: LDL Greater than 189 mg/dL 47 MICROALBUMINURIA IN A RANDOM SAMPLE IS DEFINED : MICROALBUMIN/CREATININE RATIO OF 30-299 ug/mg. . 48 Anion gap measurement may be of limited value in the presence of any alkalosis, especially in a combined acid base disorder. . 49 A metabolite of Naproxen, O-desmethylnaproxen, has been shown to interfere with the [facility] method for measuring total bilirubin. Samples from patients who have taken Naproxen have shown spurious elevation in total bilirubin levels. 50 Because ethnic data is not always readily available, this report includes an eGFR for both -Americans and non- Americans. The National Kidney Disease Education Program (NKDEP) does not endorse the use of the MDRD equation for patients that are not between the ages of 18 and 70, are , have extremes of body size, muscle mass, or nutritional status, or are non- or non-. According to the National Kidney Foundation, irrespective of diagnosis, the stage of the disease is based on the level of kidney function: Stage Description GFR(mL/min/1.73 m(2)) 1 Kidney damage with normal or decreased GFR 90 2 Kidney damage with mild decrease in GFR 60-89 3 Moderate decrease in GFR 30-59 4 Severe decrease in GFR 15-29 5 Kidney failure <15 (or dialysis) 51 CHOLESTEROL INTERPRETATION: Desirable: Less than 200 MG/DL Borderline-High Risk: 200-239 MG/DL High-Risk: 240 MG/DL and over 52 HDL INTERPRETATION: Undesirable: High Risk: Less than 40 MG/DL Desirable: Low Risk: Greater than 60 MG/DL 53 LDL INTERPRETATION: Low Risk Optimal Level: LDL Less than 100 MG/DL Near or Above Optimal: LDL 100-129 MG/DL Borderline High Risk: LDL 130-159 MG/DL High Risk: LDL 160-189 MG/DL Very High Risk: LDL Greater than 189 MG/DL 54 THERAPEUTIC TARGET FOR THE TREATMENT OF DIABETES MELLITUS PATIENTS IS <7% HBA1C, AND IN SELECTIVE PATIENTS <6.0%. PLEASE REFER TO [place] [employer] DIABETIC CARE GUIDELINES FOR FURTHER INFORMATION. 55 THERAPEUTIC TARGET FOR THE TREATMENT OF DIABETES MELLITUS PATIENTS IS <7% HBA1C, AND IN SELECTIVE PATIENTS <6.0%. PLEASE REFER TO [place] [employer] DIABETIC CARE GUIDELINES FOR FURTHER INFORMATION. 56 THERAPEUTIC TARGET FOR THE TREATMENT OF DIABETES MELLITUS PATIENTS IS <7% HBA1C, AND IN SELECTIVE PATIENTS <6.0%. PLEASE REFER TO [place] [employer] DIABETIC CARE GUIDELINES FOR FURTHER INFORMATION. 57 Anion gap measurement may be of limited value in the presence of any alkalosis, especially in a combined acid base disorder. . 58 A metabolite of Naproxen, O-desmethylnaproxen, has been shown to interfere with the [place] method for measuring total bilirubin. Samples from patients who have taken Naproxen have shown spurious elevation in total bilirubin levels. 59 Because ethnic data is not always readily available, this report includes an eGFR for both -Americans and non- Americans. The National Kidney Disease Education Program (NKDEP) does not endorse the use of the MDRD equation for patients that are not between the ages of 18 and 70, are , have extremes of body size, muscle mass, or nutritional status, or are non- or non-. According to the National Kidney Foundation, irrespective of diagnosis, the stage of the disease is based on the level of kidney function: Stage Description GFR(mL/min/1.73 m(2)) 1 Kidney damage with normal or decreased GFR 90 2 Kidney damage with mild decrease in GFR 60-89 3 Moderate decrease in GFR 30-59 4 Severe decrease in GFR 15-29 5 Kidney failure <15 (or dialysis) 60 CHOLESTEROL INTERPRETATION: Desirable: Less than 200 MG/DL Borderline-High Risk: 200-239 MG/DL High-Risk: 240 MG/DL and over 61 HDL INTERPRETATION: Undesirable: High Risk: Less than 40 MG/DL Desirable: Low Risk: Greater than 60 MG/DL 62 LDL INTERPRETATION: Low Risk Optimal Level: LDL Less than 100 MG/DL Near or Above Optimal: LDL 100-129 MG/DL Borderline High Risk: LDL 130-159 MG/DL High Risk: LDL 160-189 MG/DL Very High Risk: LDL Greater than 189 MG/DL 63 THERAPEUTIC TARGET FOR THE TREATMENT OF DIABETES MELLITUS PATIENTS IS <7% HBA1C, AND IN SELECTIVE PATIENTS <6.0%. PLEASE REFER TO [place] [employer] DIABETIC CARE GUIDELINES FOR FURTHER INFORMATION. Procedures Date Code Description Status 09/09/2018 [id number] EKG Tracing & Interpretation Completed 07/30/2018 [id number] Diabetic Retinal Eye Exam Completed 01/24/2018 [id number] Diabetic Retinal Eye Exam Completed 07/06/2017 [id number] Diabetic Retinal Eye Exam Completed 11/28/2016 [id number] Diabetic Retinal Eye Exam Completed 05/30/2016 [id number] Diabetic Retinal Eye Exam Completed 09/10/2015 [id number] EKG Tracing & Interpretation Completed 06/07/2015 [id number] Diabetic Retinal Eye Exam Completed 11/27/2014 [id number] Diabetic Retinal Eye Exam Completed 10/28/2014 [id number] Colonoscopy Completed 04/21/2014 [id number] Diabetic Retinal Eye Exam Completed 08/07/2012 [id number] Diabetic Retinal Eye Exam Completed 12/13/2010 [id number] EKG Tracing & Interpretation Completed 12/07/2008 [id number] EKG Tracing & Interpretation Completed 08/02/2004 [id number] Colonoscopy Completed Encounters Type Date Location Provider Dx Diagnosis Office Visit 07/22/2018 Orthopedic Sarina Montes, M25.561 Pain in right 2:00p [facility] knee M25.461 Effusion, right knee M17.0 Bilateral primary osteoarthritis of knee Office Visit 12/04/2017 9:20a [facility] Hailey Bautista, Z00.00 Encntr for Medicine N.P. general adult medical exam w/o abnormal findings E11.9 Type 2 diabetes mellitus without complications E78.5 Hyperlipidemia, unspecified M17.0 Bilateral primary osteoarthritis of knee I10 Essential (primary) hypertension M25.552 Pain in left hip M65.841 Other synovitis and tenosynovitis, right hand Office Visit 07/13/2017 9:30a Orthopedic Sarina M17.0 Bilateral primary [facility]es osteoarthritis of [facility] knee M25.461 Effusion, right knee M25.561 Pain in right knee Office Visit 07/09/2017 2:00p [facility] D[facility]ology Gianluca Lopezzer, D23.9 Other benign MD neoplasm of skin, unspecified L57.0 Actinic keratosis D18.01 Hemangioma of skin and subcutaneous tissue L82.1 Other seborrheic keratosis R60.0 Localized edema Office Visit 06/27/2017 3:40p [facility] Hailey Bautista, E11.9 Type 2 diabetes Medicine N.P. mellitus without complications I10 Essential (primary) hypertension M25.561 Pain in right knee D23.9 Other benign neoplasm of skin, unspecified Office Visit 12/04/2016 2:40p [facility] Hailey Bautista, L98.9 Disorder of the Medicine N.P. skin and subcutaneous tissue, unspecified Office Visit 11/27/2016 2:20p [facility] Hailey Bautista, Z00.01 Encounter for Medicine N.P. general adult medical exam w abnormal findings I10 Essential (primary) hypertension E11.9 Type 2 diabetes mellitus without complications E78.00 Pure hypercholesterolemia, unspecified M25.561 Pain in right knee M25.562 Pain in left knee Z23 Encounter for immunization Office Visit 07/04/2016 2:40p [facility] Hailey Bautista, J20.9 Acute bronchitis, Medicine N.P. unspecified Office Visit 04/27/2016 8:40a [facility] Hailey Bautista, E11.9 Type 2 diabetes Medicine N.P. mellitus without complications I10 Essential (primary) hypertension M25.562 Pain in left knee Office Visit 10/27/2015 10:40a [facility] Hailey Michele, Z00.00 Encntr for Medicine N.P. general adult medical exam w/o abnormal findings E11.9 Type 2 diabetes mellitus without complications E78.0 Pure hypercholesterolemia I10 Essential (primary) hypertension M79.669 Pain in unspecified lower leg M79.1 Myalgia R20.8 Other disturbances of skin sensation M79.661 Pain in right lower leg Office Visit 09/10/2015 3:20p [facility] Hailey Bautista, Z01.818 Encounter for other Medicine N.P. preprocedural examination H26.9 Unspecified cataract E11.9 Type 2 diabetes mellitus without complications I10 Essential (primary) hypertension G47.33 Obstructive sleep apnea (adult) (pediatric) Office Visit 05/28/2015 4:00p [facility] Hailey Bautista, M25.562 Pain in left knee Medicine N.P. Office Visit 04/27/2015 9:00a [facility] Hailey Bautista, I10 Essential Medicine N.P. (primary) hypertension E11.9 Type 2 diabetes mellitus without complications Office Visit 10/06/2014 9:20a [facility] Hailey Bautista, V70.0 Examination [facility] General Medical Routine [facility] 250.00 Diabetes Mellitus W/O Compl Type II Or Unspec Controlled 401.1 Hypertension Benign 272.4 Hyperlipidemia Other Unspec 729.82 Cramp Of Limb V03.82 Streptococcus Pneumoniae Vaccination Spec Other Office Visit 07/15/2014 3:20p [facility] Wade Horvath 466.0 Bronchitis Acute Medicine Mario Morales 380.4 Impacted Cerumen Office Visit 04/06/2014 8:40a [facility] Hailey Bautista, 250.00 Diabetes Mellitus Medicine N.P. W/O Compl Type II Or Unspec Controlled 401.1 Hypertension Benign 272.4 Hyperlipidemia Other Unspec Office Visit 03/30/2014 9:00a [facility] 844.9 [facility] Knee & Leg Unspec C.M.A. Office Visit 09/25/2013 10:20a [facility] Erna Crenshaw, 250.00 Diabetes Mellitus Medicine Mario, FACP W/O Compl Type II Or Unspec Controlled 726.19 Shoulder Disorders Other Spec 599.89 Urinary Tract Other Spec Disorders Office Visit 06/30/2013 9:00a [facility] Erna Flower, 250.00 Diabetes Mellitus Medicine M.D., FACP W/O Compl Type II Or Unspec Controlled 719.45 Pain Joint Pelvic Region & Thigh 478.9 Upper Resp Tract Disease Other & Unspec Office Visit 04/03/2013 3:40p [facility] Erna Flower, 719.45 Pain Joint Medicine M.D., FACP Pelvic Region & Thigh 250.00 Diabetes Mellitus W/O Compl Type II Or Unspec Controlled 789.9 Abdomen & Pelvis Symptoms Other Office Visit 02/24/2013 9:00a [facility] Erna Flower, 250.00 Diabetes Mellitus Medicine M.D., FACP W/O Compl Type II Or Unspec Controlled 272.0 Hypercholesterolemia Pure Office Visit 11/12/2012 9:20a [facility] Erna Flower, 250.00 Diabetes Mellitus Medicine M.D., FACP W/O Compl Type II Or Unspec Controlled 272.0 Hypercholesterolemia Pure 401.1 Hypertension Benign Office Visit 06/04/2012 11:00a [facility] Hailey Bautista, 466.0 Bronchitis Acute Medicine N.P. Office Visit 05/15/2012 9:00a [facility] Erna Flower, 250.00 Diabetes Mellitus Medicine M.D., FACP W/O Compl Type II Or Unspec Controlled 724.3 Sciatica 272.0 Hypercholesterolemia Pure Office Visit 11/28/2011 9:00a [facility] Erna Flower, 250.00 Diabetes Mellitus Medicine M.D., FACP W/O Compl Type II Or Unspec Controlled 272.0 Hypercholesterolemia Pure 723.1 Cervicalgia 719.46 Pain Joint Lower Leg Office Visit 08/24/2011 9:20a [facility] Erna Flower, 250.00 Diabetes Mellitus Medicine M.DJeevan, FACP W/O Compl Type II Or Unspec Controlled 307.49 Sleep Disorder Other Office Visit 04/26/2011 10:00a DO Not Use Erna Flower, 250.00 Diabetes Joon Martin, FACP Mellitus W/O Compl Type II Or Unspec Controlled 726.19 Shoulder Disorders Other Spec Office Visit 12/13/2010 11:00a DO Not Use Erna Flower, V70.0 Examination Joon Martin, FACP General Medical Routine [facility] 250.00 Diabetes Mellitus W/O Compl Type II Or Unspec Controlled 272.4 Hyperlipidemia Other Unspec Office Visit 09/15/2010 DO Not Use Erna Flower, 250.00 Diabetes 10:20a Joon Martin, FACP Mellitus W/O Compl Type II Or Unspec Controlled Office Visit 06/06/2010 DO Not Use Hailey Varn, 782.1 Rash & Other 9:45a [facility] Nonspec Skin Eruption 389.9 Hearing Loss Unspec Office Visit 05/19/2010 10:00a DO Not Use Erna Flower, 250.00 Diabetes Joon Martin, FACP Mellitus W/O Compl Type II Or Unspec Controlled 726.19 Shoulder Disorders Other Spec Office Visit 03/28/2010 DO Not Use Hailey Varn, 461.9 Sinusitis Acute 3:00p [facility] Unspec Office Visit 01/17/2010 DO Not Use Erna Flower, 250.00 Diabetes 9:00a Joon Martin, FACP Mellitus W/O Compl Type II Or Unspec Controlled 719.46 Pain Joint Lower Leg V04.81 Need For Prophylactic Vaccination & Inoculation/Influenza v04.81 Need For Prophylactic Vaccination & Inoculation/Influenza Office Visit 07/14/2009 9:00a DO Not Use Erna Flower, 250.00 Diabetes Joon Martin, FACP Mellitus W/O Compl Type II Or Unspec Controlled Office Visit 03/15/2009 9:45a DO Not Use Erna Flower, 719.46 Pain Joint Lower Joon Martin, FACP Leg 250.00 Diabetes Mellitus W/O Compl Type II Or Unspec Controlled Office Visit 03/05/2009 DO Not Use Hailey Varn, 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 Arm Office Visit 12/07/2008 DO Not Use Erna Flower, V70.0 Examination 9:15a Joon Martin, FACP General Medical Routine [facility] 250.00 Diabetes Mellitus W/O Compl Type II Or Unspec Controlled 272.4 Hyperlipidemia Other Unspec V07.8 Other Unspecified Prophylactic Or Treatment Measure Office Visit 09/01/2008 9:00a DO Not Use Erna Flower, 250.00 Diabetes Joon Martin, FACP Mellitus W/O Compl Type II Or Unspec Controlled 272.0 Hypercholesterolemia Pure Office Visit 05/07/2008 12:15p DO Not Use Erna Flower, 959.7 Injury Knee Joon Martin, FACP Leg Ankle & Foot Other & Unspec 681.10 Cellulitis & Abscess Toe Unspec V06.5 Tetanus Diphtheria (DT) Office Visit 04/27/2008 10:00a DO Not Use Erna Flower, 719.41 Pain Joint Joon Martin, FACP Shoulder Region 250.00 Diabetes Mellitus W/O Compl Type II Or Unspec Controlled Office Visit 04/02/2008 DO Not Use Erna Flower, 529.3 Hypertrophy Tongue 2:00p Joon Martin, FACP Papillae Office Visit 12/25/2007 DO Not Use Erna Flower, 250.00 Diabetes Mellitus 10:00a Joon Martin, FACP W/O Compl Type II Or Unspec Controlled Office Visit 10/22/2007 DO Not Use Jovani, 388.70 Otalgia & Earache 1:15p Joon Lincoln M.D. Unspec Office Visit 10/18/2007 DO Not Use Erna Flower, 250.00 Diabetes Mellitus 10:00a Joon Martin, FACP W/O Compl Type II Or Unspec Controlled Office Visit 09/05/2007 DO Not Use Erna Flower, 250.02 Diabetes Mellitus 11:45a Joon Martin, FACP W/O Compl Type II Or Unspec Type Uncontrol Office Visit 07/18/2007 DO Not Use Erna Flower, V07.8 Other Unspecified 3:45p Joon Martin, FACP Prophylactic Or Treatment Measure 250.00 Diabetes Mellitus W/O Compl Type II Or Unspec Controlled Office Visit 06/07/2007 DO Not Use Erna Flower, 250.02 Diabetes 11:30a Joon Matrin, FACP Mellitus W/O Compl Type II Or Unspec Type Uncontrol Office Visit 04/26/2007 DO Not Use Hailey Varn, 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 Office Visit 01/15/2007 DO Not Use Hailey 110.5 Dermatophytosis Body 2:30p [facility] Varn, N.P. Office Visit 11/27/2006 DO Not Use Hailey 719.41 Pain Joint Shoulder 9:00a [facility] Varn, N.P. Region Office Visit 10/11/2006 DO Not Use Erna Flower, 250.00 Diabetes Mellitus 10:30a Wero-Genesis Martin, FACP W/O Compl Type II Or Unspec Controlled 401.1 Hypertension Benign Office Visit 09/03/2006 DO Not Use Hailey 558.9 Gastroenteritis & 11:45a [facility] Varn, N.P. Colitis Noninfectious Other Plan of Treatment Future Appointment(s):09/24/2018 9:30 am - FLORIN Cyr at [facility]..09/24/2018 9:30 am - FELICITY Miles at [facility].A.09/11/2018 8:30 am - Sarina Montes M.D. at [facility]..09/24/2018 9:30 am - Sarina Montes M.D. at [facility].A.09/09/2018 - Hailey Varn, N.P.Z01.818 Encounter for other preprocedural examinationComments:I am ordering some routine preoperative lab work. The office will contact you with your results.You may take all of your usual medications the morning of your surgery, unless your surgeon tells you otherwise.Please stop taking Aspirin, or Aspirin like products for 10 days prior to your surgery. Pleasetake your CPAP machine with you to the hospital to use in the postoperative phase.M17.0 Bilateral primary osteoarthritis of kneeE11.9 Type 2 diabetes mellitus without [id number] Essential (primary) mgcxqaemwlelH75.00 Pure hypercholesterolemia, unspecified
[2018-09-24] MEDS ORDERED: Ondansetron INJ* 2 MG/ML VIAL IV ONE (06:00)
[2018-09-24] MEDS ORDERED: Lactated Ringers 1000 ML Bag* 1,000 ML IV SCH (06:00)
[2018-09-24] MEDS ORDERED: Famotidine IV* 10 MG/ML 2 ML (20 mg) IV ONE (06:00)
[2018-09-24] MEDS ORDERED: Gabapentin CAP(*) 300 MG PO ONE (06:00)
[2018-09-24] MEDS ORDERED: Clindamycin 900 MG IVPREMIX(* 900 MG/50 ML SDV IV ONE (06:31)
[2018-09-24] MEDS ORDERED: Ondansetron ODT TAB* 4 MG ONE (06:31)
[2018-09-24] MEDS ORDERED: Gabapentin CAP(*) 300 MG ONE (06:31)
[2018-09-24] MEDS ORDERED: Famotidine IV* 10 MG/ML 2 ML (20 mg) ONE (06:32)
[2018-09-24] MEDS ORDERED: Buffered Lidocaine 1% SYRIN* 1 ML/SYRINGE INTRADERM ONE (06:32)
[2018-09-24] MEDS ORDERED: Bupivacaine 0.5%* 50 ML VIAL ONE (06:54)
[2018-09-24] MEDS: Buffered Lidocaine 1% SYRIN* 1 ML/SYRINGE INTRADERM ONE ×2 (06:57→13:41)
[2018-09-24] MEDS ORDERED: Midazolam* 1 MG/ML 10 ML VIAL (10 MG) ONE (07:08)
[2018-09-24] MEDS ORDERED: fentaNYL* 50 MCG/ML 2 ML VIAL (100 MCG VIAL) ONE (07:08)
[2018-09-24] MEDS ORDERED: KETAMINE HCL* 50 MG/ML 10 ML VIAL ONE (07:08)
[2018-09-24] MEDS ORDERED: Bupivacaine 0.5% SDV PF* 30ML VIAL ONE (10:18)
[2018-09-24] MEDS ORDERED: Lidocaine 2% PF * 5 ML VIAL ONE (10:18)
[2018-09-24] MEDS ORDERED: Propofol* 500 MG/50 ML BTL ONE (10:18)
[2018-09-24] MEDS ORDERED: Bupivacaine 0.25% SDV PF* 10 ML VIAL INJ ONE (10:18)
[2018-09-24] MEDS ORDERED: Phenylephrine 10 MG/ML VIAL* 1 ML VIAL ONE (10:19)
[2018-09-24] MEDS ORDERED: Magnesium Hydroxide LIQ* 30 ML UDC PO PRN (10:31)
[2018-09-24] MEDS ORDERED: diPHENhydraMINE IV* 50 MG/ML 1 ml VIAL (BENADRYL) IV PRN (10:31)
[2018-09-24] MEDS ORDERED: traMADol TAB* 50 MG PO PRN (10:31)
[2018-09-24] MEDS ORDERED: diPHENhydraMINE PO* 25 MG PO PRN (10:31)
[2018-09-24] MEDS ORDERED: Ondansetron INJ* 2 MG/ML VIAL IV PRN (10:31)
[2018-09-24] MEDS ORDERED: Polyethylene Glycol 3350* 17 GM PACKET PO PRN (10:36)
[2018-09-24] MEDS ORDERED: Bisacodyl SUPP* 10 MG SUPP PR PRN (10:36)
[2018-09-24] MEDS ORDERED: Acetaminophen TAB* 325 MG PO SCH (11:00)
--- NOTE | 2018-09-24 12:57 | PN ---
Progress Note - Progress Note Date of Service: 09/24/18 Note: resting comfortably in recovery. no complaints. able to dorsi flex/plantar flex , 2+ DP pulse and intact sensation, dressing c/d/i
[2018-09-24] MEDS: Morphine 4 MG/ML VIAL (1 ml) 4 MG/ML VIAL IV PRN ×2 (14:12→18:35)
[2018-09-24] MEDS: Cyclobenzaprine TAB* 10 MG PO PRN (14:12)
[2018-09-24] MEDS: Acetaminophen TAB* 325 MG PO SCH ×2 (14:18→21:32)
[2018-09-24] MEDS: Lactated Ringers 1000 ML Bag* 1,000 ML IV SCH (14:18)
[2018-09-24] MEDS ORDERED: Dextrose 50% Syringe 50 ML* 25 GM/50 ML SYRINGE IV PUSH PRN (14:34)
[2018-09-24] MEDS: oxyCODONE/Acetamin 5/325 MG* TAB PO PRN ×2 (15:22→20:05)
--- NOTE | 2018-09-24 16:27 | CONS ---
CC: Deysi Chen MD* CONSULTATION REPORT: DATE OF CONSULT: 09/24/18 PRIMARY CARE PROVIDER: Deysi Chen MD REQUESTING PHYSICIAN IN CONSULTATION: Dr. Sarina Montes.* ATTENDING PHYSICIAN: Dr. Gonzalez (dictated by FELICITY Georges). REASON FOR CONSULTATION: Co-medical management. HISTORY OF PRESENT ILLNESS/HOSPITAL COURSE: I refer you to Dr. Montes's history and physical dictated on 09/12/18 for complete details, but in short, Mr. Reyes is an 87-year-old male with a past medical history of diabetes, hypertension, hyperlipidemia, and obstructive sleep apnea, who has failed conservative treatment and presented to [facility] today for an elective right total knee arthroplasty. Currently, he denies chest pain, shortness of breath, fever, cough, chills, abdominal pain, nausea, vomiting, diarrhea, constipation, or pain in the calves. He does report pain in the right knee that he rates at 6/ 10. He received morphine during our discussion. He notes he had a bowel movement yesterday. He has a catheter in place. PAST MEDICAL HISTORY: 1. Diabetes mellitus. 2. Hypertension. 3. Hyperlipidemia. 4. Obstructive sleep apnea. PAST SURGICAL HISTORY: Appendectomy, tonsillectomy, cyst removal from the back. HOME MEDICATIONS: 1. Atorvastatin 10 mg p.o. q.p.m. 2. Irbesartan 150 mg p.o. q.a.m. 3. Metformin 500 mg p.o. b.i.d. 4. Nicotinamide riboside 250 mg p.o. b.i.d. 5. Pterostilbene 50 mg p.o. b.i.d. 6. Sitagliptin phosphate 100 mg p.o. q.a.m. DRUG ALLERGIES: PENICILLIN - hives, facial swelling. FAMILY HISTORY: Positive for diabetes mellitus, cancer, stroke. SOCIAL HISTORY: The patient does not smoke currently. He notes that he smoked a pipe for 1 to 2 years when he was in his 20s. He does not drink alcohol. 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 He is . In the event that he is unable to make his own medical decisions, he has appointed his , Maia Mejia, to be his surrogate decision maker. REVIEW OF SYSTEMS: A 10-point review of systems was performed and all the pertinent positives and negatives are in the HPI. All other systems are negative. PHYSICAL EXAM: General: Mr. Reyes is a well-developed, well-nourished, obese , older white male who is sitting up in bed. He grimaces occasionally and appears to be in some amount of discomfort, but he is in no acute distress. Temperature 96.8 temporal, heart rate 66, respiratory rate 16, oxygen saturation 94% on room air, blood pressure 129/53. HEENT: Visual pop are grossly intact. PERRL. Extraocular movements are intact. There is no scleral icterus. Hearing is grossly intact. Oral mucous membranes are somewhat dry. There are no lesions. The pharynx is clear. Cardiovascular: Regular rate and rhythm with S1, S2 present without murmurs, rubs, clicks, or gallops. Respiratory: Symmetrical chest expansion without use of accessory muscles. Lungs: Clear to auscultation anteriorly. There are no rhonchi, wheezes, or rubs. Abdomen: Obese. Bowel sounds noted in all quadrants. The abdomen is soft. There is no tenderness to palpation. Extremities: Skin is warm and smooth bilaterally. There is no clubbing, cyanosis, or edema. The right knee has clean, dry and intact dressing with a cryo unit placed over it. Sensation intact distally. Radial and pedal pulses are palpable. The patient is able to move the toes. Neuro: The patient is awake. He is alert and oriented x3. He is able to move all of his extremities. ASSESSMENT AND PLAN: Mr. Reyes is an 87-year-old male with a past medical history of diabetes, hypertension, hyperlipidemia and sleep apnea, who presents to [facility] today for an elective right total knee arthroplasty. The patient will be admitted for: 1. Right total knee arthroplasty. Management per Orthopedics. 2. Diabetes mellitus. Home medications are metformin and Januvia; both of these will be held. The patient will be placed on lispro sliding scale a.c. with fingersticks a.c. 3. Hypertension. Currently, the patient is normotensive. His irbesartan will be held. Continue to monitor for need for restart. 4. Hyperlipidemia. Home medication atorvastatin will be continued. 5. Obstructive sleep apnea. The patient has brought his CPAP from home. He will use this while in the hospital. 6. Code status. Full code. 7. DVT prophylaxis. Per Ortho. The patient has been placed on apixaban 2.5 b.i.d. TIME SPENT: Approximately 30 minutes was spent on this consultation; greater than half that time was spent with the patient obtaining history, performing physical, and reviewing the plan of care. The case has been reviewed with my attending, Dr. Gonzalez, who is in agreement with the plan of care. FELICITY CLAUDIO [id number]/CPS #: [id number] MTDD
[2018-09-24] MEDS: Clindamycin 600 MG IVPREMIX(* 600 MG/50 ML SDV IV SCH ×2 (17:20→23:01)
[2018-09-24] MEDS: oxyCODONE TAB* 5 MG TAB PO PRN (17:21)
[2018-09-24] MEDS: Atorvastatin* 10 MG TAB PO SCH (17:21)
--- NOTE | 2018-09-24 17:21 | OP ---
Operative Report - Blank - Operative Report Date of Operation: 09/24/18 Note: MARICARMEN HOWELL 1930 Date of Surgery: 09/24/18 Sarina Montes MD Scaler Packer: Nishi BLEVINS did help throughout the procedure with preparation of the knee, wound retraction, manipulation of the knee, and wound closure. Anesthesiologist: John BLEVINS Anesthesia Type: Spinal Preoperative Diagnosis: Right severe degenerative osteoarthritis of the knee Postoperative Diagnosis: As above Procedure Performed: Right Total Knee Arthroplasty Tourniquet time: 65 minutes Complications: None Specimen: Bone and cartilage from the right knee joint sent to pathology. Hardware Used: Cemented [employer] total knee hardware was used - For the femur a size 5 right oxinium legion posterior stabilized femoral component, for the tibia a size 4 right eve II tibial baseplate, for the insert a size 9mm 3-4 posterior stabilized articular polyethylene insert, and for the patella a size 35 3-peg all poly patella. Brief History/Indication: MARICARMEN HOWELL was known in clinic and had a history of severe right knee pain and swelling. He failed conservative treatment with anti- inflammatories, pain pills, intra-articular injections and physical therapy. He elected to undergo right total knee arthroplasty due to continued pain and decreased quality of life. Radiographs showed severe end stage osteoarthritis of the knee with bone on bone contact. Informed consent was obtained from the patient. He understood the risks of surgery included but were not limited to: bleeding, infection, damage to nearby structures, intraoperative fracture, nerve palsy, failure of the hardware, early loosening, knee stiffness or loss of motion, anesthesia complications, stroke, heart attack, blood clot and . He wished to proceed. Intra-Operative Findings: Intraoperatively the patient was noted to have severe loss of cartilage in all 3 compartments of the knee. Description of the Procedure: MARICARMEN HOWELL was identified in the preanesthesia unit. His right knee was marked as the correct operative side. Informed consent was signed and placed in the chart. The patient was taken to the operating room and placed under anesthesia without complication. A alan catheter was placed. A tourniquet was placed on the right thigh. The right lower extremity was prepped and draped in the usual sterile fashion. Preoperative time-out was made to correctly identify the patient, side and site. Appropriate intraoperative antibiotics were given within one hour of incision. Tourniquet was inflated. A midline incision was made and carried sharply down to the extensor mechanism. A new 10 blade was used to make a standard medial parapatellar arthrotomy. The patella was subluxed laterally. Electrocautery was used to dissect soft tissue off the superomedial tibia to the midsagittal plane. The knee was flexed up. The anterior horn of the lateral meniscus and the ACL were sharply incised. A drill was used to enter the distal femur. The intramedullary distal femoral cutting guide was pinned on the distal femur. The oscillating saw was used to make the distal femoral cut. The external rotation guide was pinned on the distal femur and the distal femur was sized to a size 5. The size 5 multi-cutting jig was pinned on the distal femur. The oscillating saw was used to make the appropriate 4 chamfer cuts. Next the PCL was completely released. The extramedullary tibial cutting guide was pinned on the proximal tibia and the oscillating saw was used to make the proximal tibial cut perpendicular to the mechanical axis of the tibia. The bone was carefully removed. The knee was brought out into full extension. The spacer block was placed and had excellent fit with the knee in full extension. The medial and lateral ligaments were well balanced. The flexion and extension gaps were well balanced. The knee was flexed up. Lamina panel gluer was placed both medially and laterally. Any remaining meniscus was removed with electrocautery. Curved osteotome was used to remove any posterior osteophytes. The tibial tray and drop leslie were placed and confirmed a satisfactory tibial cut. The size 5 right femoral trial was impacted onto the distal femur. This trial had excellent fit and stability. The box for the posterior stabilized implant was prepared using a box cut osteotome and a reamer. Next a tibial tray trial and 9 mm insert trial was placed. The knee was taken through a range of motion and had full extension to 130 degrees of flexion. Patellofemoral tracking was satisfactory. The patella was inverted and sized to a size 35. Three peg holes were drilled through the size 35 drill guide. The trial patella was placed and the knee was taken through a range of motion. There was satisfactory patellofemoral tracking. All trials were removed. The tibia was subluxed anteriorly and sized to a size 4. The proximal tibial was prepared with a size 4 keel punch. All bony cut surfaces were irrigated with sterile saline and dried. Final implants were cemented into place starting with the tibia, followed by the femur, and last the patella. A 9 mm insert trial was placed and the knee was brought into full extension. Tourniquet was turned down and the knee was copiously irrigated with sterile saline. Electrocautery was used to obtain meticulous hemostasis. Once the cement had fully cured, the insert trial was removed. Any excess cement was removed from around the hardware and capsule. Final insert chosen was a 9 mm posterior stabilized Eve II articular insert size 3-4. Stability of the insert was checked and noted to be stable. The extensor mechanism was closed using number 1 vicryls. The rest of the incision was closed in a layered fashion using 0 and 2-0 vicryls. The skin was closed using 3-0 nylon suture. Sterile xeroform, 4x4s and webril were used to cover the incision. Mundo wrap and cold pack were used to cover the dressings. The patients anesthesia was reversed without difficulty. He was taken to the PACU in stable condition. Intended weight-bearing will be as tolerated.
[2018-09-24] MEDS: Insulin LISPRO* 1 UNITS UNIT SUBCUT SCH (18:35)
[2018-09-24] MEDS ORDERED: metFORMIN* 500 MG TAB PO SCH (21:00)
[2018-09-24] MEDS ORDERED: [UNRECOGNIZED DRUG - OTHER] PO SCH (21:00)
[2018-09-24] MEDS ORDERED: PTEROSTILBENE PO SCH (21:00)
[2018-09-24] MEDS: Magnesium Hydroxide LIQ* 30 ML UDC PO SCH (21:27)
[2018-09-24] MEDS: Docusate CAP* 100 MG PO SCH (21:27)
[2018-09-25] MEDS: Lactated Ringers 1000 ML Bag* 1,000 ML IV SCH ×2 (00:47→11:08)
[2018-09-25] MEDS: oxyCODONE/Acetamin 5/325 MG* TAB PO PRN ×5 (04:09→22:33)
[2018-09-25 05:41] LABS: Hematocrit 37 % (42-52); Hemoglobin 12.6 g/dL (14.0-18.0); Mean Platelet Volume 7.3 fL (7.4-10.4); Platelet Count 238 10^3/uL (150-450)
[2018-09-25 05:59] LABS: BUN/Creatinine Ratio 15.6 (8-20); Calcium 8.6 mg/dL (8.6-10.3); EGFR African American 89.9 (>60); EGFR Non-African American 74.3 (>60); Potassium 4.4 mmol/L (3.5-5.0)
[2018-09-25] MEDS: Acetaminophen TAB* 325 MG PO SCH ×3 (06:16→23:14)
[2018-09-25] MEDS: Clindamycin 600 MG IVPREMIX(* 600 MG/50 ML SDV IV SCH (06:33)
[2018-09-25] MEDS: oxyCODONE TAB* 5 MG TAB PO PRN (06:33)
[2018-09-25] MEDS: Insulin LISPRO* 1 UNITS UNIT SUBCUT SCH ×3 (08:33→17:36)
[2018-09-25] MEDS: Docusate CAP* 100 MG PO SCH ×2 (08:34→22:33)
[2018-09-25] MEDS: Magnesium Hydroxide LIQ* 30 ML UDC PO SCH ×2 (08:34→22:34)
[2018-09-25] MEDS: Apixaban* 2.5 MG TAB PO SCH ×2 (08:34→22:33)
[2018-09-25] MEDS ORDERED: Losartan TAB* 25 MG PO SCH (09:00)
[2018-09-25] MEDS ORDERED: CMC:SitaGLIPtin (NF) 100 MG TAB PO SCH (09:00)
--- NOTE | 2018-09-25 11:51 | PN ---
Progress Note - Progress Note Date of Service: 09/25/18 SOAP: Subjective: []Patient seen and examined at bedside. He reports feeling drowsy but well otherwise. Denies CP, SOB, dizziness, nausea, confusion. Objective: []General: Appears well, NAD, appropriate conversation RLE: Right knee dressing CDI, thigh soft, DF/PF intact, sensation intact to light touch distally, DP2+ Calves supple and nontender without erythema, edema or palpable cords Assessment: []POD 1 sp right total knee replacement Plan: []WBAT PT/OT eliquis 2.5 mg po BID x 30 days PMRU consult in place Encouraged IS Vital Signs Temp 98.8 F 09/25/18 11:38 Pulse 90 09/25/18 11:38 Resp 18 09/25/18 11:38 BP 155/61 09/25/18 11:38 Pulse Ox 92 09/25/18 11:38 Intake & Output 09/24/18 09/25/18 09/25/18 18:59 06:59 18:59 Intake Total 2425 1930 1443 Output Total 1000 800 Balance 1425 1130 1443 Intake: IV Fluids 2225 980 1033 ABX - CLINDAMYCIN 53 LR 2225 980 980 IVPB 50 50 ABX - CLINDAMYCIN 50 50 Oral 200 900 360 Output: Castellanos 1000 800 Other: # Bowel Movements 0 Estimated Blood Loss <200 Comment Laboratory Last Values Hgb 12.6 g/dL (14.0-18.0) L 09/25/18 04:58 Hct 37 % (42-52) L 09/25/18 04:58 Plt Count 238 10^3/uL (150-450) 09/25/18 04:58 MPV 7.3 fL (7.4-10.4) L 09/25/18 04:58 Sodium 134 mmol/L (135-145) L 09/25/18 04:58 Potassium 4.4 mmol/L (3.5-5.0) 09/25/18 04:58 Chloride 100 mmol/L (101-111) L 09/25/18 04:58 Carbon Dioxide 27 mmol/L (22-32) 09/25/18 04:58 Anion Gap 7 mmol/L (2-11) 09/25/18 04:58 BUN 15 mg/dL (6-24) 09/25/18 04:58 Creatinine 0.96 mg/dL (0.67-1.17) 09/25/18 04:58 Est GFR ( Amer) 89.9 (>60) 09/25/18 04:58 Est GFR (Non-Af Amer) 74.3 (>60) 09/25/18 04:58 BUN/Creatinine Ratio 15.6 (8-20) 09/25/18 04:58 Glucose 176 mg/dL (70-100) H 09/25/18 04:58 POC Glucose (mg/dL) 155 mg/dL (70-100) H 09/25/18 07:19 Calcium 8.6 mg/dL (8.6-10.3) 09/25/18 04:58
--- NOTE | 2018-09-25 14:11 | PN ---
Subjective Date of Service: 09/25/18 Interval History: Consult Note: HD # 2 on 09/25, POD # 1R TKR 87 yo M PMH HTN, HLD, MARK on CPAP, NIDDM admitted for R TKR elective, medicine to comanage medical conditions Overnight no acute events. VSS-Systolic 150's Labs: Mild anemia and hypoNa on admission. Pt has no complaints, pleasant seen with . Objective Active Medications: Acetaminophen (Tylenol Tab*) 975 mg PO Q8HR [facility] Last Admin: 09/25/18 06:16 Dose: Not Given Apixaban (Eliquis*) 2.5 mg PO BID [facility] Last Admin: 09/25/18 08:34 Dose: 2.5 mg Atorvastatin Calcium (Lipitor*) 10 mg PO QPM [facility] Last Admin: 09/24/18 17:21 Dose: 10 mg Bisacodyl (Dulcolax Supp*) 10 mg SD DAILY PRN PRN Reason: constipation Cyclobenzaprine HCl (Flexeril Tab*) 10 mg PO TID PRN PRN Reason: SPASMS Last Admin: 09/24/18 14:12 Dose: 10 mg Dextrose (D50w Syringe 50 Ml*) 12.5 gm IV PUSH .FOR FS < 60 - SS PRN PRN Reason: FS < 60 Diphenhydramine HCl (Benadryl Iv*) 25 mg IV Q6H PRN PRN Reason: itching Diphenhydramine HCl (Benadryl Po*) 25 mg PO Q6H PRN PRN Reason: INSOMNIA Docusate Sodium (Colace Cap*) 100 mg PO BID [facility] Last Admin: 09/25/18 08:34 Dose: 100 mg Lactated Ringer's (Lactated Ringers 1000 Ml Bag*) 1,000 mls @ 100 mls/hr IV PER RATE [facility] Last Admin: 09/25/18 11:08 Dose: 100 mls/hr Insulin Human Lispro (Humalog*) 0 units SUBCUT AC [facility]; Protocol Last Admin: 09/25/18 12:03 Dose: 3 units Lactulose (Lactulose*) 30 ml PO Q6H PRN PRN Reason: constipation Magnesium Hydroxide (Milk Of Magnesia Liq*) 30 ml PO BID [facility] Last Admin: 09/25/18 08:34 Dose: 30 ml Magnesium Hydroxide (Milk Of Magnesia Liq*) 30 ml PO Q6H PRN PRN Reason: constipation Morphine Sulfate (Morphine 4 Mg/Ml Vial (1 Ml)) 4 mg IV Q2H PRN PRN Reason: PAIN Last Admin: 09/24/18 18:35 Dose: 4 mg Ondansetron HCl (Zofran Inj*) 4 mg IV Q6H PRN PRN Reason: nausea Oxycodone HCl (Roxycodone Tab*) 10 mg PO Q4H PRN PRN Reason: breakthru pain Last Admin: 09/25/18 06:33 Dose: 10 mg Oxycodone/Acetaminophen (Percocet 5/325 Tab*) 2 tab PO Q3H PRN PRN Reason: PAIN - MODERATE Last Admin: 09/25/18 08:34 Dose: 2 tab Oxycodone/Acetaminophen (Percocet 5/325 Tab*) 1 tab PO Q3H PRN PRN Reason: PAIN - MODERATE Last Admin: 09/25/18 12:49 Dose: 1 tab Polyethylene Glycol/Electrolytes (Miralax*) 17 gm PO DAILY PRN PRN Reason: Constipation Tramadol HCl (Ultram*) 50 mg PO Q6H PRN PRN Reason: PAIN Last Admin: 09/24/18 20:04 Dose: 50 mg Vital Signs - 8 hr 09/25/18 09/25/18 09/25/18 06:10 06:33 07:53 Temperature 98.3 F Pulse Rate 85 Respiratory 16 18 16 Rate Blood Pressure 168/59 (mmHg) O2 Sat by Pulse 93 Oximetry 09/25/18 09/25/18 09/25/18 08:00 08:30 08:34 Temperature Pulse Rate Respiratory 20 18 18 Rate Blood Pressure (mmHg) O2 Sat by Pulse 93 Oximetry 09/25/18 09/25/18 09/25/18 09:40 10:38 11:38 Temperature 98.8 F Pulse Rate 81 90 Respiratory 20 18 Rate Blood Pressure 149/44 155/61 (mmHg) O2 Sat by Pulse 92 Oximetry 09/25/18 12:49 Temperature Pulse Rate Respiratory 18 Rate Blood Pressure (mmHg) O2 Sat by Pulse Oximetry Oxygen Devices in Use Now: CPAP Appearance: Obese man in NAD Eyes: No Scleral Icterus Ears/Nose/Mouth/Throat: NL Teeth, Lips, Gums, Clear Oropharnyx Respiratory: Symmetrical Chest Expansion and Respiratory Effort, Clear to Auscultation Cardiovascular: NL Sounds; No Murmurs; No JVD, RRR Abdominal: NL Sounds; No Tenderness; No Distention, No Hepatosplenomegaly Lymphatic: No Cervical Adenopathy Extremities: No Edema, - - RLE wrapped Skin: No Rash or Ulcers Neurological: Alert and Oriented x 3 Result Diagrams: 09/25/18 04:58 09/25/18 04:58 Assess/Plan/Problems-Billing Assessment: 87 yo M PMH HTN, HLD, MARK on CPAP, NIDDM admitted for R TKR elective, medicine to [facility] medical conditions - Patient Problems (1) Status post total knee replacement, right Current Visit: Yes Status: Acute Code(s): Z96.651 - PRESENCE OF RIGHT ARTIFICIAL KNEE JOINT SNOMED Code(s): 9881085902302 Comment: - POD # 1, per ortho, PMRU consult - Pain control and bowel regimen per ortho (2) Hypertension Current Visit: Yes Status: Acute Code(s): I10 - ESSENTIAL (PRIMARY) HYPERTENSION SNOMED Code(s): 07937092 Comment: - Restart home meds today 09/25, Losartan 50mg in place of irbesartan (as NF) (3) Non-insulin dependent type 2 diabetes mellitus Current Visit: Yes Status: Acute Code(s): E11.9 - TYPE 2 DIABETES MELLITUS WITHOUT COMPLICATIONS SNOMED Code(s): 59951241 Comment: - Currently Januvia and Metformin held, restart Metformin, start januvia on d/c (4) MARK (obstructive sleep apnea) Current Visit: Yes Status: Acute Code(s): G47.33 - OBSTRUCTIVE SLEEP APNEA ( ADULT) (PEDIATRIC) SNOMED Code(s): 74539968 Comment: - Use home CPAP (5) Hyperlipemia Current Visit: Yes Status: Acute Code(s): E78.5 - HYPERLIPIDEMIA, UNSPECIFIED SNOMED Code(s): 26333771 Comment: - Resume atorvastatin (6) DVT prophylaxis Current Visit: Yes Status: Acute Code(s): Z29.9 - ENCOUNTER FOR PROPHYLACTIC MEASURES, UNSPECIFIED SNOMED Code(s): 634849361 Comment: - as per ortho (7) Full code status Current Visit: Yes Status: Acute Code(s): Z78.9 - OTHER SPECIFIED HEALTH STATUS SNOMED Code(s): 874343512 Status and Disposition: Awaiting rehab
[2018-09-25] MEDS: Losartan TAB* 25 MG PO SCH (15:47)
[2018-09-25] MEDS: metFORMIN* 500 MG TAB PO SCH (17:39)
[2018-09-25] MEDS: Atorvastatin* 10 MG TAB PO SCH (17:39)
[2018-09-25] MEDS: Cyclobenzaprine TAB* 10 MG PO PRN (18:28)
[2018-09-26] MEDS: oxyCODONE/Acetamin 5/325 MG* TAB PO PRN (05:44)
[2018-09-26] MEDS: Acetaminophen TAB* 325 MG PO SCH (05:49)
[2018-09-26 06:21] LABS: Hematocrit 34 % (42-52); Hemoglobin 11.5 g/dL (14.0-18.0); Mean Platelet Volume 7.2 fL (7.4-10.4); Platelet Count 219 10^3/uL (150-450)
[2018-09-26 08:13] VITALS: BP 139/50
[2018-09-26] MEDS: Magnesium Hydroxide LIQ* 30 ML UDC PO SCH (08:25)
[2018-09-26] MEDS: metFORMIN* 500 MG TAB PO SCH (08:27)
[2018-09-26] MEDS: Docusate CAP* 100 MG PO SCH (08:27)
[2018-09-26] MEDS: Insulin LISPRO* 1 UNITS UNIT SUBCUT SCH (08:27)
[2018-09-26] MEDS: Apixaban* 2.5 MG TAB PO SCH (08:27)
[2018-09-26] MEDS: Losartan TAB* 25 MG PO SCH (08:27)
[2018-09-26] MEDS ORDERED: NS 0.9% 1000 ML** 1,000 ML IV SCH (10:30)
--- NOTE | 2018-09-26 10:32 | DS ---
Orthopedic Discharge Summary - Discharge Summary Date of Admission:09/24/18 Date of Discharge: 09/26/18 Date of Surgery: 09/24/18 Attending Orthopedic Provider: Dr Montes Pre-operative Diagnosis: right knee osteoarthritis Operative Procedure: right total knee replacement Disposition of Patient: [facility] Condition of Patient: stable History: MARICARMEN HOWELL is a 87 year old M with years of increasingly severe right k nee pain. Patient has failed conservative management and has elected to undergo a right total knee replacement Hospital Course: MARICARMEN was admitted to [facility] on 09/24/18. Patient underwent a right total knee replacement without complication followed by a brief recovery in PACU and transfer to the Short Stay Surgical Unit in stable condition. Our hospitalist service, physical therapy and occupational therapy also participated in this patients care. Post-op day 1: patient was alert and in no acute distress. Dressing was clean, dry and intact. Operative extremity dorsiflexion and plantarflexion intact, sensation intact to light touch distally, DP2+. Post-op day two: dressing was changed, incision was clean , dry and intact. Patient was deemed to be medically and orthopedically stable for discharge to [facility]. Physical therapy goals were met. He was tachycardic 09/26 , EKG showed sinus tachycardia. Discussed patient with Hospitalist Dr Rabago, stable for discharge to [facility] with recommendation of normal saline 100 ml/hr, monitor heart rate, recheck sodium 09/27. Home Medications Medication Instructions Recorded Confirmed Type metFORMIN* [Glucophage 500 MG TAB 500 mg PO BID 02/24/13 09/24/18 History *] Atorvastatin* [Lipitor 10 MG*] 10 mg PO QPM 09/10/15 09/24/18 History Irbesartan 150 mg PO QAM 09/11/18 09/24/18 History Nicotivanide Riboside 250 mg PO BID 09/11/18 09/24/18 History Pterostilbene 50 mg PO BID 09/11/18 09/24/18 History Sitagliptin Phosphate [Januvia] 100 mg PO QAM 09/11/18 09/24/18 History Acetaminophen TAB* [Tylenol TAB*] 975 mg PO Q8HR tab 09/26/18 Rx Apixaban* [Eliquis*] 2.5 mg PO BID #60 tab 09/26/18 Rx Docusate CAP* [Colace Cap*] 100 mg PO BID cap 09/26/18 Rx oxyCODONE/Acetamin 5/325 MG* 1 tab PO Q3H PRN tab MDD 10 09/26/18 Rx [Percocet 5/325 TAB*] oxyCODONE/Acetamin 5/325 MG* 2 tab PO Q3H PRN tab MDD 10 09/26/18 Rx [Percocet 5/325 TAB*] traMADol TAB* [Ultram*] 50 mg PO Q6H PRN tab 09/26/18 Rx Discharge Instructions following Orthopedic Surgery: Activity: * Weight Bearing as tolerated * Continue physical therapy and occupational therapy exercises as shown Wound care: * OK to shower on post-op day 3, no bathing, swimming, or submerging wound. * Use gentle soap, pat dry. Cover with gauze, KARIS wrap or tape. * PMRU nurse to do wound checks. Call Orthopedic office for: * Increased drainage * Redness * Increased pain * Fever Go to ER with shortness of breath or chest pain. Diet: * Regular diet * Increase fluids and fiber to prevent constipation. * Continue to use stool softeners, call office if no bowel motion within 48 hours. Medications See Home Medication List in your packet for medications that you should take after discharge. DVT Prophylaxis: Eliquis Dosin.5 mg, 1 tab every 12 hours x 30 days Pain Control: Percocet Dosin/325 mg 1-2 tabs by mouth every 4-6 hours as needed for pain. Maximum of 10 tabs per day. Please note that Percocet contains Tylenol (acetaminophen). Maximum daily dose of Tylenol is 4000 mg from all sources. Antibiotics are required prior to any dental work. FOLLOW UP: Follow up with [Simon] Within 10-14 days, call for appointment Please call our office with any questions or concerns ([phone])
--- NOTE | 2018-09-26 10:33 | PN ---
Progress Note - Progress Note Date of Service: 09/26/18 SOAP: Subjective: []Pt seen at bedside, he feels well. Denies CP, SOB, dizziness, nausea. HR elevated, asymptomatic. EKG showed sinus tachycardia. Objective: [] General: Appears well, NAD, appropriate conversation RLE: Right knee dressing changed, incision CDI, thigh soft, DF/PF intact, sensation intact to light touch distally, DP2+ Calves supple and nontender without erythema, edema or palpable cords Assessment: []POD 2 sp right total knee replacement Plan: []WBAT PT/OT eliquis 2.5 mg po BID x 30 days PMRU today Discussed tachycardia with Dr Barajas, recommend NS 100ml/hr, monitor HR and recheck sodium tomorrow. Ready for DC to PMRU Vital Signs Temp 98.9 F 09/26/18 07:34 Pulse 118 09/26/18 10:18 Resp 20 09/26/18 07:41 BP 139/50 09/26/18 08:13 Pulse Ox 94 09/26/18 10:18 Intake & Output 09/25/18 09/26/18 09/26/18 18:59 06:59 18:59 Intake Total 2143 630 240 Output Total 300 525 150 Balance 1843 105 90 Intake: IV Fluids 1493 ABX - CLINDAMYCIN 53 LR 1440 IVPB 50 ABX - CLINDAMYCIN 50 Oral 600 630 240 Output: Urine 300 525 150 Other: # Bowel Movements 0 Laboratory Last Values Hgb 11.5 g/dL (14.0-18.0) L 09/26/18 05:34 Hct 34 % (42-52) L 09/26/18 05:34 Plt Count 219 10^3/uL (150-450) 09/26/18 05:34 MPV 7.2 fL (7.4-10.4) L 09/26/18 05:34 Sodium 132 mmol/L (135-145) L 09/26/18 05:34 Potassium 4.4 mmol/L (3.5-5.0) 09/25/18 04:58 Chloride 100 mmol/L (101-111) L 09/25/18 04:58 Carbon Dioxide 27 mmol/L (22-32) 09/25/18 04:58 Anion Gap 7 mmol/L (2-11) 09/25/18 04:58 BUN 15 mg/dL (6-24) 09/25/18 04:58 Creatinine 0.96 mg/dL (0.67-1.17) 09/25/18 04:58 Est GFR ( Amer) 89.9 (>60) 09/25/18 04:58 Est GFR (Non-Af Amer) 74.3 (>60) 09/25/18 04:58 BUN/Creatinine Ratio 15.6 (8-20) 09/25/18 04:58 Glucose 176 mg/dL (70-100) H 09/25/18 04:58 POC Glucose (mg/dL) 162 mg/dL (70-100) H 09/26/18 07:18 Calcium 8.6 mg/dL (8.6-10.3) 09/25/18 04:58
== END 2018-09-26 10:50 | DRG 470 ==
LOC: AA 09-24 05:43 → SSU 09-24 10:31
PROVIDERS: ADMIT Orthopaedic Surgery Adult Reconstructive Orthopaedic Surgery; ATTEND Orthopaedic Surgery Adult Reconstructive Orthopaedic Surgery
PROC: 0SRC069 Replacement of Right Knee Joint with Oxidized Zirconium on Polyethylene Synthetic Substitute, Cemented, Open Approach (ICD-10-PCS; principal; 2018-09-24 07:30)
DX: M17.0 Bilateral primary osteoarthritis of knee (principal); E87.1 Hypo-osmolality and hyponatremia; I10 Essential (primary) hypertension; E78.00 Pure hypercholesterolemia, unspecified; M25.461 Effusion, right knee; M25.761 Osteophyte, right knee; E11.9 Type 2 diabetes mellitus without complications; E78.5 Hyperlipidemia, unspecified; G47.33 Obstructive sleep apnea (adult) (pediatric); D64.9 Anemia, unspecified; E66.9 Obesity, unspecified; R00.0 Tachycardia, unspecified; Z90.89 Acquired absence of other organs; Z88.0 Allergy status to penicillin; Z82.3 Family history of stroke; Z88.8 Allergy status to other drugs, medicaments and biological substances; Z83.3 Family history of diabetes mellitus; Z79.84 Long term (current) use of oral hypoglycemic drugs; Z80.9 Family history of malignant neoplasm, unspecified; Z98.41 Cataract extraction status, right eye; Z68.37 Body mass index [BMI] 37.0-37.9, adult
CPT/HCPCS: 36415; 80048; 84300; 85014; 85018; 85049; 93005; A9270-GY; C1776; G8978-GP-CL; G8979-GP-CI; G8987-GO-CK; G8988-GO-CH; J2250; J2270; J2704; J3010; J3490

== ENCOUNTER 2018-09-26 10:38 | Inpatient (IN) | payer OTHER, MEDICARE ==
[2018-09-26] MEDS ORDERED: Senna TAB PO PRN (12:27)
[2018-09-26] MEDS ORDERED: Acetaminophen TAB* 325 MG PO PRN (12:27)
[2018-09-26] MEDS ORDERED: Magnesium Hydroxide LIQ* 30 ML UDC PO PRN (12:27)
[2018-09-26] MEDS ORDERED: Dextrose 50% Syringe 50 ML* 25 GM/50 ML SYRINGE IV PUSH PRN (12:36)
[2018-09-26] MEDS ORDERED: oxyCODONE/Acetamin 5/325 MG* TAB PO PRN ×2 (12:37→12:41)
[2018-09-26] MEDS ORDERED: Cyclobenzaprine TAB* 10 MG PO PRN (12:39)
[2018-09-26] MEDS: NS 0.9% 1000 ML** 1,000 ML IV SCH (13:00)
[2018-09-26] MEDS: Insulin LISPRO* 1 UNITS UNIT SUBCUT SCH ×3 (13:04→21:22)
[2018-09-26] MEDS ORDERED: Atorvastatin* 10 MG TAB PO SCH (17:00)
[2018-09-26] MEDS: metFORMIN* 500 MG TAB PO SCH (17:41)
--- NOTE | 2018-09-26 18:11 | PN ---
Subjective Date of Service: 09/26/18 Interval History: HOSPITALIST PROGRESS NOTE Patient seen and examined at bedside. Care reviewed and d/w Jaylan Castro RN. He feels well today. Denies CP, palpitations, SOB. States he's very thirsty - usually drinks 10 glasses of water at home and yesterday had only 2. Feels " very dry". Also feels the Percocet makes him "oozy". Family History: Unchanged from Admission Social History: Unchanged from Admission Past Medical History: Unchanged from Admission Objective Active Medications: Acetaminophen (Tylenol Tab*) 650 mg PO Q6H PRN PRN Reason: FEVER/PAIN Last Admin: 09/26/18 16:22 Dose: 650 mg Apixaban (Eliquis*) 2.5 mg PO BID [facility] Atorvastatin Calcium (Lipitor*) 10 mg PO 1700 [facility] Last Admin: 09/26/18 17:41 Dose: 10 mg Cyclobenzaprine HCl (Flexeril Tab*) 10 mg PO Q8H PRN PRN Reason: SPASMS Dextrose (D50w Syringe 50 Ml*) 12.5 gm IV PUSH .FOR FS < 60 - SS PRN PRN Reason: FS < 60 Docusate Sodium (Colace Cap*) 100 mg PO BID [facility] Sodium Chloride (Ns 0.9% 1000 Ml) 1,000 mls @ 75 mls/hr IV PER RATE [facility] Last Admin: 09/26/18 13:00 Dose: 75 mls/hr Insulin Human Lispro (Humalog*) 0 - 15 units SUBCUT [facility]; Protocol Last Admin: 09/26/18 17:41 Dose: 2 units Losartan Potassium (Cozaar Tab*) 50 mg PO DAILY [facility] Magnesium Hydroxide (Milk Of Magnesia Liq*) 30 ml PO Q6H PRN PRN Reason: CONSTIPATION Metformin HCl (Glucophage*) 500 mg PO 0800,1700 [facility] Last Admin: 09/26/18 17:41 Dose: 500 mg Oxycodone/Acetaminophen (Percocet 5/325 Tab*) 1 tab PO Q4H PRN PRN Reason: PAIN - MODERATE TO SEVERE Oxycodone/Acetaminophen (Percocet 5/325 Tab*) 2 tab PO Q4H PRN PRN Reason: PAIN - SEVERE Senna (Senokot Tab*) 2 tab PO BEDTIME [facility] Vital Signs - 8 hr 09/26/18 09/26/18 09/26/18 11:29 14:30 15:47 Temperature 98.6 F 98.1 F Pulse Rate 108 108 Respiratory 18 32 Rate Blood Pressure 127/36 129/40 (mmHg) O2 Sat by Pulse 83 93 94 Oximetry Oxygen Devices in Use Now: Nasal Cannula Appearance: Pleasant elderly gentleman sitting up in a recliner in NAD. Eyes: No Scleral Icterus Ears/Nose/Mouth/Throat: Mucous Membranes Moist Neck: Trachea Midline Respiratory: Symmetrical Chest Expansion and Respiratory Effort, Clear to Auscultation Cardiovascular: RRR - Normal S1 and S2 Extremities: - - Right knee CDI Neurological: Alert and Oriented x 3, NL Muscle Strength and Tone Assess/Plan/Problems-Billing Assessment: Mr Reyes is an 87yo M with PMH of HTN, HLD, MARK, DM, admitted for elective right TKA. - Patient Problems (1) Status post total knee replacement, right Comment: - Ortho felt patient was doing well and he was transferred to [facility]. - Patient was tachycardic earlier today, and it was felt it could be secondary to dehydration due to his poor PO fluid intake, but his mild tachycardia continues even with IV hydration. EKG showed acute ischemic changes. He also requires 3 liters of O2 to keep SO2>90% and this is new. - I contacted Dr Haley and shared my concern for possible PE - he'll order CTA chest.
[2018-09-26] MEDS ORDERED: Iodixanol* (CONTRAST) 320 MG/ML 100 ML SDV IV ONE (18:32)
[2018-09-26] MEDS: Docusate CAP* 100 MG PO SCH (20:26)
--- NOTE | 2018-09-26 20:26 | HP ---
HISTORY AND PHYSICAL: DATE OF ADMISSION: 09/26/18 REASON FOR ADMISSION: Right total knee replacement. HISTORY OF PRESENT ILLNESS: Narinder Reyes is an 87-year-old white male. 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 He has had a long history of right knee pain. He tried and failed conservative treatment including an injection into his right knee. He saw Dr. Sarina Montes and had x-rays showing end-stage osteoarthritis. It was felt that the patient would benefit from a right total knee replacement. He was admitted to [facility] on 09/24/18 and underwent a right total knee replacement that day. Postoperatively, he was restarted on metformin. His blood sugars were somewhat high and he was covered with sliding scale insulin. The blood sugars were under 200, it should be noted. The patient was slow to mobilize. He was felt to have physical therapy and occupational therapy needs. His postop course was notable for tachycardia. It was felt that this might be likely due to dehydration and a liter of IV normal saline was ordered. PAST MEDICAL HISTORY: Significant for diabetes mellitus and high blood pressure as well as high cholesterol. He also has a history of sleep apnea. MEDICATIONS: Current medications include: 1. Oxycodone. 2. Eliquis for DVT prophylaxis. 3. He is on Lipitor. 4. Flexeril. 5. Lispro insulin. 6. Cozaar. 7. Metformin. 8. Percocet. ALLERGIES: PENICILLIN. SOCIAL HISTORY: He is a nonsmoker, nondrinker. He lives in a very large house in [place]. It is a 3-story house with 37 steps. He lives with his . 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 REVIEW OF SYSTEMS: The patient reports no current shortness of breath or chest pain. PHYSICAL EXAMINATION VITAL SIGNS: Temperature is 98.1, blood pressure is 129/40, pulse is 108, respirations are 32. HEENT: His extraocular movements are intact. Tongue is midline. NECK: Supple. LUNGS: Sounded clear to auscultation bilaterally. HEART: Sounds are regular. S1 and S2 are audible. ABDOMEN: Soft and nontender. EXTREMITIES: He had 2+ edema in his right foot, 1+ edema in his left foot. Peripheral pulses were intact. His right knee has a dressing, which is clean and dry. NEUROLOGIC EXAM: Sensation appeared to be intact. Muscle strength is 5/5 in the left leg and the upper extremities, right leg was about 3/5 secondary to pain. He could dorsiflex the right foot. FUNCTIONAL EXAM: He transfers with minimal amount of assistance. ASSESSMENT: 1. Right total knee replacement. 2. Diabetes mellitus. 3. Tachycardia. 4. Hypoxia. PLAN: 1. I discussed the case with his hospitalist attending, Dr. Ramsey, and we agreed that the patient will have a CT angiogram of his chest today to rule out a possible pulmonary embolus. He has no chest pain. He does not feel short of breath. We will obtain the CT angio tonight. 2. Physical Therapy will work with the patient. They are going to work on functional transfer training, ambulation training with a walker. 3. Occupational Therapy will see the patient, work on his activities of daily living including toileting and toilet transfers. 4. Eliquis for DVT prophylaxis. 5. Continue metformin for diabetes with sliding scale insulin. 6. Adequate analgesia. 7. Bowels will be regulated. 8. We will finish the bag of IV normal saline. 9. [employer] Warden will be closely involved to make sure that any services and equipment the patient requires are in place prior to discharge. 10. Family training as appropriate. 11. Home with appropriate services. ESTIMATED LENGTH OF STAY: 7 to 10 days. [id number]/CPS #: [id number] [email or web address]
[2018-09-26] MEDS ORDERED: Apixaban* 2.5 MG TAB PO ONE (20:52)
--- NOTE | 2018-09-26 20:56 | PN ---
Progress Note - Progress Note Date of Service: 09/26/18 Note: CTA of chest was done. It was consistent with PE. The patient continues with mild tachycardia (pulse 100-108) and hypoxia, now on O2 2lpm via NC. He denies chest pain, does not feel SOB or lightheaded. Will increase Eliquis to 5 mg BID. Monitor overnight.
[2018-09-26] MEDS ORDERED: Apixaban* 2.5 MG TAB PO SCH (21:00)
[2018-09-26] MEDS ORDERED: Senna TAB PO SCH (21:00)
[2018-09-26] MEDS: HYDROcodone/ACETAMIN 5-325 MG* 1 TAB PO PRN (23:06)
[2018-09-27] MEDS: NS 0.9% 1000 ML** 1,000 ML IV SCH (02:24)
[2018-09-27] MEDS: HYDROcodone/ACETAMIN 5-325 MG* 1 TAB PO PRN ×2 (03:17→09:06)
[2018-09-27 05:16] LABS: ABS Basophils 0.1 10^3/ul (0-0.2); ABS Lymphocytes 1.5 10^3/ul (1.0-4.8); ABS Monocytes 1.4 10^3/ul (0-0.8); ABS Neutrophils 11.5 10^3/ul (1.5-7.7); Eosinophil % 0.1 %; Hematocrit 30 % (42-52); Hemoglobin 10.2 g/dL (14.0-18.0); Lymphocyte % 10.4 %; Mean Corpuscular HGB Conc 34 g/dL (31-36); Mean Corpuscular Hemoglobin 31 pg (27-31); Mean Corpuscular Volume 90 fL (80-94); Mean Platelet Volume 7.1 fL (7.4-10.4); Platelet Count 224 10^3/uL (150-450); Red Blood Count 3.33 10^6 /uL (4.18-5.48); Red Cell Distribution Width 14 % (10.5-15); White Blood Count 14.4 10^3/uL (3.5-10.8)
[2018-09-27 05:32] LABS: Albumin 3.1 g/dL (3.2-5.2); Albumin/Globulin Ratio 1.1 (1-3); BUN/Creatinine Ratio 21.1 (8-20); EGFR Non-African American 75.2 (>60); Globulin 2.8 g/dL (2-4); Potassium 4.5 mmol/L (3.5-5.0); Total Bilirubin 0.8 mg/dL (0.2-1.0); Total Protein 5.9 g/dL (6.4-8.9)
[2018-09-27 05:53] VITALS: BP 127/49
[2018-09-27] MEDS: Insulin LISPRO* 1 UNITS UNIT SUBCUT SCH ×2 (07:45→12:15)
[2018-09-27] MEDS ORDERED: Furosemide TAB* 20 MG PO SCH (09:00)
[2018-09-27] MEDS ORDERED: Losartan TAB* 25 MG PO SCH (09:00)
[2018-09-27] MEDS ORDERED: Apixaban* 5 MG TAB PO SCH ×2 (09:00→21:00)
[2018-09-27] MEDS: Docusate CAP* 100 MG PO SCH (09:03)
[2018-09-27] MEDS: metFORMIN* 500 MG TAB PO SCH (09:03)
[2018-09-27] MEDS ORDERED: Metoprolol Tartrate TAB* 25 MG PO ONE (11:51)
--- NOTE | 2018-09-27 12:49 | PMRUTEAM ---
PMRU: Team Meeting Current Status: Nursing: Current Status Skin Deviations [Bilateral Bruise Thigh] Skin Deviations [Right Knee] Incision Skin Deviation Description [ intact with sutures. scant sang drainage. washed Right Knee] with soap and water. telfa x1, 4x4's x2 and julia wrap applied Physical Therapy: Current Status Bed Mobility Assistance 2 Assist Transfer Mobility Assistance Dependent Transfer/Bed Mobility Rolling Walker Recommended Devices Ambulation Assistance Max Assist x2 Ambulation Assistive Devices Rolling Walker Stairs Assistance NT Stairs Recommended Devices One Rail Number of Stairs 0 Occupational Therapy: Current Status Upper Body Dressing Min Assist Lower Body Dressing Max Asst,2 Person Assist Bathing Max Asst Toileting Max Asst,2 Person Assist Toilet Transfer Min Assist,Mod Assist,2 Person Assist Eating Mod Assist Rec Therapy: Current Status Summary of Assessment and Pt. was in and out of resting. Pt.'s was Clinical Impression made aware of recreation therapy services but preferred bid writer met with pt. at a later time when he was more rested. Pt.'s did share some of pt.'s interests which are documented above. This bid writer will introduce recreation therapy to pt. when appropriate as well has assessing leisure interests and involvement. *Update - pt. was more awake and alert later in the afternoon. Pt. was open to conversation about his leisure interests and involvement, assessment categories above were updated. Treatment Goals Pt. will engage in leisure activities as tolerated . Treatment Plan Introduce recreation therapy services to pt. and update assessment as needed - resolved. Provide and encourage involvement in recreation therapy. 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 Goals: Physical Therapy: Initial Goals Bed Mobility Assistance Independent Transfer Mobility Assistance Independent Transfer/Bed Mobility Rolling Walker Recommended Devices Ambulation Independent Ambulation Recommended Devices None Ambulation Distance 150 Stairs Assistance Independent Stair Recommended Devices Two Rails Number of Stairs 20 Physical Therapy: Updated Goals Transfer/Bed Mobility Rolling Walker Recommended Devices Occupational Therapy: Initial Goals Goals to be Completed in (Days 14-17 ) Upper Body Bathing Routine Supervision/Set Up Lower Body Bathing Routine Minimal Contact Assist Upper Body Dressing Routine Minimal Contact Assist Lower Body Dressing Routine Minimal Contact Assist Toilet Hygeine and Clothing Modified Independent with Management Routine Toilet Transfer Routine Modified Independent with Step-In Shower Transfer Supervision/Set Up Routine Functional Transfers for ADL Modified Independent with Grooming Routine Independent Feeding Routine Independent Social Work: Goals Discharge Plan return home with family support and community as needed Potential for Family Training 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 Care Plan: Care Plan ADL's - Improve/Maintain Start: 09/26/18 14:07 Freq: DAILY Status: Active Target: Protocol: Activity Type Activity Date Activity User E-Sign Co-Sign Detail Recorded Client Recorded Date Recorded By Document 09/27/18 07:13 [id number] [id number] 09/27/18 07:13 [id number] 09/27/18 07:13 PMRU Outcome: ADL's/ADL Transfers Orders/Interventions Occupational Therapy Evaluation & Treatment Communication Tool in Patient Room Patient to receive OT 5x/wk for 60-120 Therex min/day Self Care Management Group Therapy UE/LE ADL's with Assist Yes: min A ADL Transfers with Assist Yes: mod I Toileting: Transfers,Clothing Management Yes: mod I ,Hygeine w/Assist Light Kitchen/Laundry w/Assist No Progression Toward Outcome/Goals Progressing Outcome/Goals Met Pt presents with R knee discomfort/ tension, limited R knee AROM, decreased endurance, low O2 saturation, lethargy and balance deficits that affect his ability to complete bathing, dressing, toileting, toilet transfers and showering tasks . Pt would benefit from skilled OT intervention in an acute rehab setting to maximize independence with ADLs and ADL transfers. Pt is agreeable to POC but it is likely that his will continue to assist him as needed post d/c . Cardiovascular- Improve/Maintain Start: 09/26/18 14:07 Freq: QSHIFT Status: Active Target: Protocol: Activity Type Activity Date Activity User E-Sign Co-Sign Detail Recorded Client Recorded Date Recorded By Document 09/27/18 10:43 [id number] 09/27/18 10:54 [id number] 09/27/18 10:43 PMRU Outcome: Cardiovascular Vital Signs q Shift for 48hrs Then BID Yes Daily Weight Ordered No Current Cardiovascular Outcome/Goal Maintain/ Achieve Baseline HR, BP , Perfusion Progression Toward Outcome/Goal Progressing Communication-Improve/Maintain Start: 09/26/18 14:07 Freq: DAILY Status: Active Target: Protocol: Activity Type Activity Date Activity User E-Sign Co-Sign Detail Recorded Client Recorded Date Recorded By Document 09/27/18 10:43 [id number] [id number] 09/27/18 10:54 [id number] 09/27/18 10:43 PMRU Outcome: Communication/Cognitive Status Outcome/Goals Use Comm Tools/ Devices Makes Needs Known Effectively Progression Toward Outcomes/Goals Progressing Coping/Psych-Improve/Maintain Start: 09/26/18 14:07 Freq: QSHIFT Status: Active Target: Protocol: Activity Type Activity Date Activity User E-Sign Co-Sign Detail Recorded Client Recorded Date Recorded By Document 09/27/18 10:43 [id number] [id number] 09/27/18 10:54 [id number] 09/27/18 10:43 PMRU Outcome: Coping/Psychosocial Coping Outcome/Goals Verbalization of Acceptance of Rehab Admit Verbalization of Sense of Control Over Health Status Willingness to Participate in Treatment Plan and Basic Needs Psychosocial Outcome/Goals Maintain/ Improve Emotional Health Cooperate/ Participate in Plan Progression Toward Outcome/Goals - Progressing Coping Progression Toward Outcome/Goals - Progressing Psychosocial DVT Prophylaxis- Improve/Maintain Start: 09/26/18 14:07 Freq: QSHIFT Status: Active Target: Protocol: Activity Type Activity Date Activity User E-Sign Co-Sign Detail Recorded Client Recorded Date Recorded By Document 09/27/18 10:43 [id number] [email or web address] 09/27/18 10:54 [id number] 09/27/18 10:43 PMRU Outcome: DVT Prophylaxis Outcome/Goals Remains Free of DVT Complies with DVT Prophylaxis /Treatment Demonstrates Knowledge of DVT Prevention/ Treatment TEDS Stockings on Every AM, Off at HS Progression Toward Outcome/Goals Progressing Discharge Planning - Improve/Maintain Start: 09/26/18 14:07 Freq: DAILY Status: Active Target: Protocol: Activity Type Activity Date Activity User E-Sign Co-Sign Detail Recorded Client Recorded Date Recorded By Document 09/27/18 03:03 [id number] [email or web address] 09/27/18 03:03 [id number] 09/27/18 03:03 PMRU Outcome: Discharge Planning Update Patient Family No Outcome/Goals Demonstrates Understanding of Discharge Plan Education-Improve/Maintain Start: 09/26/18 14:07 Freq: QSHIFT Status: Active Target: Protocol: Activity Type Activity Date Activity User E-Sign Co-Sign Detail Recorded Client Recorded Date Recorded By Document 09/27/18 10:43 [id number] [email or web address] 09/27/18 10:54 [id number] 09/27/18 10:43 PMRU Outcome: Education Outcome/Goals Demonstrate/ Verbalize Understanding of Written Discharge Instructions Demonstrates Skills Progression Toward Outcome/Goals Progressing /GI-Improve/Maintain Start: 09/26/18 14:07 Freq: QSHIFT Status: Active Target: Protocol: Activity Type Activity Date Activity User E-Sign Co-Sign Detail Recorded Client Recorded Date Recorded By Document 09/27/18 10:43 [id number] [id number] 09/27/18 10:54 [id number] 09/27/18 10:43 PMRU Outcome: Genitourinary/ Gastrointestinal Genitourinary- Outcome/Goals Maintain/ Achieve Urinary Continence Maintain/ Achieve Adequate Urinary Output Gastrointestinal-Outcome/Goals Maintain/ Achieve Bowel Regularity in Accordance with Pt's Baseline Remain Free of Emesis Prevent Constipation Bowel Regularity at Home Laxatives as Ordered Progression Toward Outcome/Goals - Progressing Outcome/Goals Met Comment pt used urinal. colace given this am Medication Administration Start: 09/26/18 14:07 Freq: QSHIFT Status: Active Target: Protocol: Activity Type Activity Date Activity User E-Sign Co-Sign Detail Recorded Client Recorded Date Recorded By Document 09/27/18 10:43 [id number] [email or web address] 09/27/18 10:54 [id number] 09/27/18 10:43 PMRU Outcome: Medication Administration Assess Patient Knowledge/Teach Med Yes Education for all Meds Outcome/Goals Patient Independent with Medication Administration at Home Demonstrates Understanding Progression Towards Outcome/Goals Progressing Is Patient Going Home on Lovenox? No Metabolic Status- Improve/Maintain Start: 09/26/18 14:07 Freq: QSHIFT Status: Active Target: Protocol: Activity Type Activity Date Activity User E-Sign Co-Sign Detail Recorded Client Recorded Date Recorded By Document 09/27/18 10:43 [id number] [email or web address] 09/27/18 10:54 [id number] 09/27/18 10:43 PMRU Outcome: Metabolic Status Have Fingersticks Been Ordered Yes Fingerstick Order Frequency AC & HS Outcome/Goals Maintain/ Improve Metabolic Status Demonstrate Knowledge of Prevention/ Treatment of Metabolic Imbalances Progression Toward Outcome/Goals Progressing Neurological- Improve/Maintain Start: 09/27/18 02:59 Freq: QSHIFT Status: Active Target: Protocol: Activity Type Activity Date Activity User E-Sign Co-Sign Detail Recorded Client Recorded Date Recorded By Document 09/27/18 10:43 [id number] [id number] 09/27/18 10:54 [id number] 09/27/18 10:43 PMRU Outcome: Neurological Weakness/Aphasia Weakness Right Side Outcome/Goals Maintain/ Achieve Baseline Neurological Status Maintain/ Improve Strength/ROM Progression Toward Outcome/Goals Progressing Pain/Comfort- Improve/Maintain Start: 09/27/18 02:59 Freq: QSHIFT Status: Active Target: Protocol: Activity Type Activity Date Activity User E-Sign Co-Sign Detail Recorded Client Recorded Date Recorded By Document 09/27/18 10:43 [id number] [email or web address] 09/27/18 10:54 [id number] 09/27/18 10:43 PMRU Outcome: Pain/Comfort Outcome/Goals Demonstrates Knowledge and Use of Available Comfort Measures Achieves Acceptable Comfort/Pain Level as Determined by Patient/Condit Maintain Comfort Level Allowing Patient to Fully Participate in Rehab Progression Toward Outcome/Goals Progressing Outcome/Goals Met Comment cryo unit in place.norco given Respiratory - Improve/Maintain Start: 09/27/18 02:59 Freq: QSHIFT Status: Active Target: Protocol: Activity Type Activity Date Activity User E-Sign Co-Sign Detail Recorded Client Recorded Date Recorded By Document 09/27/18 10:43 [id number] [email or web address] 09/27/18 10:54 [id number] 09/27/18 10:43 PMRU Outcome: Respiratory Does Patient Have a Trach No Outcome/Goals Maintain/ Improve O2 Sat per MD Order Maintain/ Improve Activity Tolerance Prevent Pneumonia/ Atelectasis Outcome/Goals Met Comment o2 off at present. no sob noted Medicine Note: Length of Stay: 11 days Anticipated Discharge Destination: Home Tentative Discharge Date: 10/08/18 Discharged to: Home
--- NOTE | 2018-10-02 01:48 | DS ---
DISCHARGE SUMMARY: DATE OF ADMISSION: 09/26/18 DATE OF DISCHARGE: 09/27/18 DISCHARGE DIAGNOSES: 1. Right total knee replacement. 2. Postoperative pulmonary embolus. 3. Atrial fibrillation with rapid ventricular response. 4. Diabetes mellitus. 5. Hypertension. 6. Sleep apnea. HISTORY OF ILLNESS AND HOSPITAL COURSE: For complete history of the events leading up to his rehab s amanda, please see the history and physical dictated by wy, 09/26/18. After being admitted to the rehab unit, he was noted to be tachycardic and hypoxic. CT angiogram of his chest was ordered. It was posi tive for pulmonary embolus. The patient's Eliquis was increased from 2.5 mg twice a day to 10 mg twi ce a day. On the morning of 09/27/18, he was noted to be tachycardic with heart rate of 150. An EKG was done, which showed that he was in atrial fibrillation with rapid ventricular response. After co nsulting with the hospitalist, it was decided that the patient should move to the telemetry service. DISCHARGE DIET: Consistent carbohydrate. DISCHARGE MEDICATIONS: 1. Eliquis 10 mg orally twice a day. 2. Lipitor 10 mg daily. 3. Lispro insulin sliding scale. 4. Cozaar 50 mg daily. 5. Metformin 500 mg at 8 a.m. and 5 p.m. 6. Hydrocodone with Tylenol 5/325 one tablet every 4 hours as needed for pain. CONDITION AT DISCHARG E: The patient was in guarded condition at discharge. FOLLOWUP: The patient will have followup with Orthopedic Surgery. Other followups will be arranged by the hospitalist service, who will be managing his case on the telemetry unit. [id number]/[facility] #: [id number]
[2018-10-04] MEDS ORDERED: Apixaban* 5 MG TAB PO SCH (09:00)
== END 2018-09-27 13:15 | disposition short-term general hospital (02) | DRG 559 ==
LOC: PMRU 11:10
PROVIDERS: ADMIT Physical Medicine & Rehabilitation; ATTEND Physical Medicine & Rehabilitation
PROC: F07Z5ZZ Bed Mobility Treatment (ICD-10-PCS; principal; 2018-09-26)
PROC: F07Z9ZZ Gait Training/Functional Ambulation Treatment (ICD-10-PCS; 2018-09-26)
PROC: F07Z8ZZ Transfer Training Treatment (ICD-10-PCS; 2018-09-26)
PROC: F08Z0ZZ Bathing/Showering Techniques Treatment (ICD-10-PCS; 2018-09-26)
PROC: F08Z1ZZ Dressing Techniques Treatment (ICD-10-PCS; 2018-09-26)
PROC: F08Z3ZZ Feeding/Eating Treatment (ICD-10-PCS; 2018-09-26)
DX: Z47.1 Aftercare following joint replacement surgery (principal); I26.99 Other pulmonary embolism without acute cor pulmonale; Z96.651 Presence of right artificial knee joint; E11.9 Type 2 diabetes mellitus without complications; I10 Essential (primary) hypertension; R00.0 Tachycardia, unspecified; E78.00 Pure hypercholesterolemia, unspecified; R09.02 Hypoxemia; G47.33 Obstructive sleep apnea (adult) (pediatric); E86.0 Dehydration; Z79.84 Long term (current) use of oral hypoglycemic drugs; Z79.899 Other long term (current) drug therapy; Z88.0 Allergy status to penicillin
CPT/HCPCS: 36415; 71275; 80053; 85025; 93005; A9270-GY; Q9967

== ENCOUNTER 2018-09-27 13:05 | Inpatient (IN) | payer OTHER, MEDICARE ==
[2018-09-27] MEDS ORDERED: Acetaminophen TAB* 325 MG PO PRN (13:10)
[2018-09-27] MEDS ORDERED: Al Hydrox/Mg Hydrox/Simet LIQ* 30 ML UDC PO PRN (13:10)
--- OUTSIDE RECORDS SUMMARY | 2018-09-27 13:13 | XMS REPORT | Continuity of Care Document ---
:1930 External Reference #:[id number] Author Name Karen Balderrama Care Team Providers Name Role Phone Deysi Chen MD Primary Care Physician Unavailable Payers Date Identification Numbers Payment Provider Subscriber Policy Number: [id number] [employer] Maricarmen Eric Group Number: [id number] [address] Group Name: [place] [address] PayID: [id number] Advance Directives Type Date Description Status Comment [...] Unknown Marital Status Lives With Occupation [employer]. ETOH Use Rarely consumes alcohol Tobacco Use Start: Unknown Patient has never smoked Smoking Status Reviewed: 09/11/18 Patient has never smoked Exercise Exercises regularly Does Dikr Chi, Weight Type/Frequency resistance training. Allergies, Adverse Reactions, Alerts Active Allergies Reaction Severity Comments Date Penicillin Urticaria Severe 01/13/2010 ALL "Cillins" 07/22/2018 Metal Allergy, Likely Nickel 09/11/2018 Medications Active Medications SIG Qnty Indications Ordering Date Provider Hospital Bed use after total 1units Sarina Montes, 09/11/2018 knee replacement M.D. Irbesartan 1 by mouth every 90tabs I10 Hailey Bautista, 12/04/2017 150mg day N.P. 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 ambulation [...] FACP Cpap pressure 16 Erna Crenshaw, 09/15/2010 M.DJeevan, FACP Cpap Mask And Erna Crenshaw, 09/15/2010 [...] two tabs day one, 6tabs J20.9 Hailey Bautista, 07/04/2016 - 250mg one daily till N.P. 07/09/2016 Tablets gone Benzonatate one by mouth 30caps J20.9 Hailey Orrcarol, 07/04/2016 - 200mg three times daily N.P. 07/18/2016 Capsules as needed for cough T/S Test up to 4 100units Hailey Michele, 04/19/2016 - Freestyle Strip times a day N.P. 04/27/2016 Freestyle Tamiflu 1 by mouth twice 10caps 466.0 Wade Horvath 07/15/2014 - 75mg Capsules a day x 5 days Mario Morales 09/28/2014 Zithromax Z-Manish as per directions 1Pack 466.0 Wade Horvath 07/15/2014 - 250mg Mario Morales 09/28/2014 Tablets Valsartan-Hydrochlor Take 1 tablet by 90tabs I10 Hailey Michele, 2013 - othiazide mouth daily N.P. 12/04/2017 160-12.5mg Tablets Freestyle Lite two times daily 100units Hailey Michele, 09/26/2013 - Lancets or as needed N.P. 04/27/2016 Ipratropium [place] instill 2 sprays 30units 478.9 Erna Crenshaw, [...] two tabs day one, 6tabs 466.0 Hailey Orrn, 06/04/2012 - 250mg one daily till N.P. 06/14/2012 Tablets gone Zolpidem Tartrate 1 tab at bedtime 20tabs 307.49 Erna Crenshaw, 08/24/2011 - 5mg as needed for M.D., FACP 11/28/2011 Tablets sleep Provent SR Nasal Use as directed. 30units 307.49 Erna Crenshaw, 08/24/2011 - Device M.D., FACP 11/28/2011 Test Strips use as tid 300units Erna Crenshaw, 07/21/2011 - directed M.D., [facility] 09/10/2014 Lancets use as directed 100units Erna Crenshaw, 07/21/2011 - M.D., FACP 10/06/2014 Accu-Check Darlin use as directed 300units 250.00 Erna Crenshaw, 12/13/2010 - Test Strips M.D., FACP 07/21/2011 Accu-Check Darlin use as directed 300units 250.00 Erna Crenshaw, 12/13/2010 - Lancet Drums M.D., [facility] 07/21/2011 Clindamycin HCL qid po 40caps Erna Crenshaw, 09/15/2010 - 150mg M.D., FACP 12/13/2010 Capsules Freestyle Lite Test use as directed 100units Erna Flower, 05/19/2010 - Strip two times daily M.D., FACP 12/13/2010 or as needed dx:pcos/igt Freestyle Lite two times daily 100units Erna Crenshaw, 05/19/2010 - Lancets or as needed M.D., FACP 12/13/2010 Physical Therapy Erna Crenshaw, 05/19/2010 - M.D., [facility] 09/15/2010 Right Shoulder Pain Loprox apply to affected 30gm Erna Crenshaw, 04/11/2010 - 0.77% Cream area bid M.D., FACP 12/13/2010 Zithromax Z-Manish two po initially 1Pack Erna Crenshaw, 03/28/2010 - 250mg then one po daily M.D., FACP 04/07/2010 Tablets Fluticasone 1 spray each 1bottle Erna Crenshaw, 03/28/2010 - Propionate nostril daily as M.D., FACP 04/07/2010 50mcg/Act needed Suspension Physical Therapy Enra Crenshaw, 01/17/2010 - R M.D., FACP 01/17/2010 [...] a day N.P. 01/23/2014 Tablets ER 24HR [place]-3 & [place]-6 take one Unknown - Fish Oil capsule/tablet 07/21/2018 1200mg daily by mouth Capsules for ra Immunizations CPT Code Status Date Vaccine Lot # [id number] Given 01/15/2018 Influenza Virus Vaccine, Quadrivalent, Split, Preservative Free [id number] Given 11/27/2016 Pneumonia Vaccine [id number] Given 02/15/2015 Flu Vaccine NOS 72188 Given 10/06/2014 Pneumococcal Conjugate Vaccine 13 Valent For [id number] Intramuscular Use 89009 Given 01/31/2014 Influenza Virus Vaccine, Quadrivalent, Split, [id number] Preservative Free Q2036 Given 01/17/2013 Flulaval Vaccine [id number] Given 01/26/2012 Fluzone Vaccine [id number] 14656 Given 02/24/2011 Influenza Virus 3Yrs & Over 35751 Given 01/17/2010 Influenza Virus 3Yrs & Over 42169 Given 05/07/2008 Tetanus And Diptheria (Td) For Adult Use Preservative Free 07335 Given 05/07/2008 Tetanus And Diptheria (Td) For Adult Use Preservative Free 49492 Given 02/10/2008 Influenza Virus 3Yrs & Over 56811 Given 02/10/2008 Influenza Virus 3Yrs & Over 58852 Given 02/28/2007 Zoster (Zostavax) 12396 Given 02/28/2007 Influenza Virus 3Yrs & Over 96311 Given 02/28/2007 Influenza Virus 3Yrs & Over Vital Signs Date Vital Result Comment 09/11/2018 8:29am Height 66 inches 5'6" Weight 232.00 lb Heart Rate 70 /min BP Systolic 140 mmHg BP Diastolic 68 mmHg Body Temperature 97.5 F O2 % BldC Oximetry 98 % BMI (Body Mass Index) 37.4 kg/m2 09/09/2018 11:53am Height 65 inches 5'5" Weight [...] Date Facility Test Result H/L Range Note Inr/Protime 09/11/2018 [facility] Inr 1.15 High 0.82-1.09 1, [address] [place] [address] [phone] Laboratory test 09/11/2018 [facility] Partial 29.8 seconds N 26.0-36.3 [address] [place] [address] PTT [phone] Type & Screen 09/11/2018 [facility] Patient A Positive [address] [place] [address] [phone] Antibody Screen NEGATIVE Urine Culture And 09/11/2018 [facility] Urine Culture SEE RESULT [address] [place] [address] [phone] Urinalysis Profile 09/09/2018 [facility] Urine Color Yellow [address] [place] [address] [phone] Urine Appearance Clear Urine Specific [place] 1.008 Low 1.010-1.030 Urine pH 8.0 N 5-9 Urine Urobilinogen Negative Negative Urine Ketones Negative Negative Urine Protein Negative Negative Urine Leukocytes Negative Negative Urine Blood Negative Negative Urine Nitrite Negative Negative Urine Bilirubin Negative Negative Urine Glucose Negative Negative Comp Metabolic Panel 09/09/2018 [facility] Sodium 140 mmol/L N 135-[address] [place] [address] [phone] Potassium 4.5 mmol/L N 3.5-5.0 Chloride 102 [...] Egfr Non- 73.4 >60 Egfr 88.8 >60 5 CBC Auto Diff 09/09/2018 [facility] White Blood 10.2 10^3/uL N 3.5-10.[address] [place] [address] [phone] Red Blood Count 4.83 10^6/uL N 4.18-5.48 [...] % Nucleated Red Blood Cells % 0.2 Laboratory 09/06/2018 [facility] Hepatitis B Nonreactive Nonreactive test finding [address] [place] [address] [phone] Hepatitis C 09/06/2018 [facility] HCV Index < 0.0 Index Antibody [address] [place] [address] [phone] Hepatitis C Antibody Nonreactive Nonreactive HIV 1/2 AB 09/06/2018 [facility] HIV 1 2 Nonreactive Nonreactive [address] [place] [address] [phone] Laboratory test 09/06/2018 [facility] Syphillis Negative Negative finding [address] Igg W/[place] [address] RPR [phone] Max Stone 09/06/2018 [facility] Ebv Capsid Positive Negative Comprehensive [address] Ag IgG Ab [place], [place] [address] [phone] Ebv Capsid Ag IgM Ab Negative Negative Max-Stone Nuclear Antigen Positive Negative Max-Stone Virus Interp See Comment 7 Laboratory test 09/06/2018 [facility] Hepatitis A IgM Negative Negative [address] Antibody [place], [place] [id number] [phone] HTLV 1/2 AB Negative Negative 9 Stratify 09/06/2018 [facility] JCV Antibody - Positive [address] Stratify Antibody [place], [place] 160[address]193 [phone] CMV 09/05/2018 [facility] Cytomegalovirus Positive Abnormal Negative 11 Igg/Igm [address] DR[address] IgG Antibody [place], [place] 0948216 [phone] Cytomegalovirus IgM Antibody Negative Negative Lipid Profile 11/27/2017 [facility] Triglycerides 81 mg/dL 12 (Trig/Chol/HDL) [address] [place], [place] [address] [phone] Cholesterol 131 mg/dL 13 HDL Cholesterol 43.9 mg/dL 14 LDL Cholesterol 71 mg/dL 15 Laboratory test 11/27/2017 [facility] Hemoglobin A1c 6.0 % High 4.0-5.6 [address] (Glyco HGB) [place], [place] [address] [phone] Urine 11/27/2017 [facility] Ur Microalbumin < 15.[address] (mg/L) Random [place], [place] [address] [phone] Urine Creatinine 145.02 mg/dL Urine Microalbumin/Creatinine TNP <31 17 Comp Metabolic Panel 11/27/2017 [facility] Sodium 141 mmol/L N 135-[address] [place] [address] [phone] Potassium 4.8 mmol/L N 3.5-5.0 Chloride 107 [...] Egfr Non- 65.5 >60 Egfr 79.3 >60 18 Xray 07/13/2017 [facility] Knee 3 Views RT <pending> 16 [place] [address] [phone] Laboratory test 06/27/2017 [facility] House Hemoglobin A1c 6.9 5-7 finding Lipid Profile 11/17/2016 [facility] Triglycerides 126 mg/dL N 19 (Trig/Chol/HDL) [address] [place] [address] [phone] Cholesterol 140 mg/dL N 20 HDL Cholesterol 39.7 mg/dL N 21 LDL Cholesterol 75 mg/dL N 22 Laboratory test 11/17/2016 [facility] Hemoglobin A1c 6.5 % High Less 23 finding 101 [facility] (Glyco HGB) than 6.0 [place] [address] [phone] Urine 11/17/2016 [facility] Urine 122.[address] Creatinine mg/[place] [address] [phone] Ur Microalbumin (mg/L) < 15.0 mg/L N Urine Microalbumin/Creatinine TNP ug/mg N <31 24 Laboratory test 04/27/2016 [facility] Hemoglobin A1c 5.6 5-7 finding Lipid Profile 10/18/2015 [facility] Triglycerides 94 mg/dL N 25 (Trig/Chol/HDL) [address] [place] [address] [phone] Cholesterol 143 mg/dL N 26 HDL Cholesterol 41.1 mg/dL N 27 LDL Cholesterol 83 mg/dL N 28 Laboratory test 10/18/2015 [facility] Hemoglobin A1c 5.7 % N Less [address] (Glyco HGB) than 6.0 [place] [address] [phone] Urine 10/18/2015 [facility] Ur Microalbumin < 5.0 [address] Microalbumin [address] (mg/L) mg/[place] [address] [phone] Urine Creatinine 102.57 mg/dL N Urine Microalbumin/Creatinine TNP ug/mg N <31 30 Laboratory test 09/22/2015 [facility] Point of 135 mg/dL High 74-106 [address] [place] [place] [address] [phone] Laboratory test 09/15/2015 [facility] Point of 144 mg/dL High 74-106 [address] Care Glucose [place], [place] [address] [phone] Comp Metabolic 09/10/2015 [facility] Sodium 138 mmol/L N 133- [address] [place] [address] [phone] Potassium 4.5 mmol/L N 3.5-5.0 Chloride 106 [...] 77.6 N >60 Egfr 99.8 N >60 33 CBC Auto Diff 09/10/2015 [facility] White Blood 8.0 10^3/uL N 3.5-10.[address] Count [place], [place] [address]647 [phone] Red Blood Count 4.45 10^6/uL N 4.0-5.4 [...] Cells % 0 N Laboratory test 04/27/2015 [facility] In House Hemoglobin A1c 5.3 5-7 finding Laboratory test 10/28/2014 [facility] Surgical Pathology SEE RESULT [address] [place] [address] [phone] Urine Microalbumin 10/06/2014 [facility] Ur Microalbumin < 5.0 mg/L N Random [address] (mg/L) [place] [address] [phone] Urine Creatinine 38.56 mg/dL N Urine Microalbumin/Creatinine TNP ug/mg N <31 35 Laboratory test 10/06/2014 [facility] Hemoglobin A1c 5.0 5-7 finding Comp Metabolic 09/29/2014 [facility] Sodium 138 mmol/L N 133- 145 [address] [place] [address] [phone] Potassium 3.9 mmol/L N 3.5-5.0 Chloride 105 [...] 65.5 N >60 Egfr 84.2 N >60 37 Lipid Profile 09/29/2014 [facility] Triglycerides 88 mg/dL N 38 (Trig/Chol/HDL) [address] [place] [address] [phone] Cholesterol 116 mg/dL N 39 HDL Cholesterol 38.8 mg/dL N 40 LDL Cholesterol 60 mg/dL N 41 Laboratory test 04/06/2014 [facility] Hemoglobin A1c 5.1 5-7 finding Laboratory test 06/25/2013 [facility] Hemoglobin A1c 5.4 % Less than [address] 6[address] [place] [address] [phone] Basic Metabolic 04/03/2013 [facility] Sodium 136 mmol/L 133- 145 Panel [address] [place] [address] [phone] Potassium 4.7 mmol/L 3.5-5.0 Chloride 101 mmol/L 101-111 Co2 Carbon Dioxide 29.0 mmol/L 22-32 Anion Gap 6.0 mmol/L 2-11 Glucose 94 mg/dL 70-100 Blood Urea Nitrogen 24 mg/dL 6-24 Creatinine 0.90 mg/dL 0.50-1.40 BUN/Creatinine Ratio 26.7 High 8-20 Calcium 9.4 mg/dL 8.1-9.9 Egfr Non- 81.0 >60 Egfr 104.2 >60 43 Urine Microalbumin 02/24/2013 [facility] Ur Microalbumin < 2 mg/ L [address] (mg/L) [place] [address] [phone] Urine Creatinine 62.5 mg/dL Urine Microalbumin/Creatinine 3.2 Less Than 31 Lipid Profile 02/19/2013 [facility] Triglycerides 74 mg/dL 40 -200 (Trig/Chol/HDL) [address] [place] [address] [phone] Cholesterol 144 mg/dL Less than 200 HDL Cholesterol 39 mg/dL Low 40-60 45 Cholesterol/HDL Ratio 3.7 Average 1-4.44 LDL Cholesterol 90.2 Less Than 100 46 Laboratory test 02/19/2013 [facility] Hemoglobin A1c 5.7 % Less than [address] [place] [address] [phone] Laboratory test 11/12/2012 [facility] Hemoglobin A1c 6.4 5-7 finding Laboratory test 11/05/2012 [facility] Hemoglobin A1c 6.7 % High Less than [address] [place] [address] [phone] Comp Metabolic 11/05/2012 [facility] Sodium 141 133-[address] mmol/[place] [address] [phone] Potassium 4.5 mmol/L 3.5-5.0 Chloride 107 mmol/L [...] Egfr Non- 64.2 >60 Egfr 82.6 >60 49 Lipid Profile 11/05/2012 [facility] Triglycerides 106 mg/dL 40-200 (Trig/Chol/HDL) [address] [place] [address] [phone] Cholesterol 132 mg/dL Less than 200 HDL Cholesterol 35 mg/dL Low 40-60 50 Cholesterol/HDL Ratio 3.8 Average 1-4.44 LDL Cholesterol 75.8 Less Than 100 51 Laboratory test 05/15/2012 [facility] Hemoglobin A1c 6.3 5-7 finding Urine Microalbumin 11/22/2011 [facility] Microalbumin (MG/L) 3.0 mg/L Random [address] [place] [address] [phone] Urine Creatinine 156.0 mg/dL Nasim Alb/Creatinine Ratio 1.9 UG/MG Less Than 30 52 Comp Metabolic Panel 11/22/2011 [facility] Sodium 136 mmol/L 135-145 [address] [place] [address] [phone] Potassium 3.9 mmol/L 3.5-5.0 Chloride 103 mmol/L 101-111 Co2 (Carbon Dioxide) 28.0 mmol/L 22-32 Anion Gap 5.0 mmol/L 2-11 53 Glucose 115 mg/dL High 70-100 BUN 16 mg/dL 6-24 Creatinine 1.2 mg/dL 0.50-1.40 One Over Creatinine 0.83 BUN/Creatinine Ratio 13.3 8-20 Calcium 8.7 mg/dL 8.1-9.9 Total Protein 5.7 GM/DL Low 6.2-8.1 Albumin 3.4 GM/DL 3.2-5.2 Globulin 2.3 GM/DL 2-4 Albumin/Globulin Ratio 1.5 1-3 Bilirubin Total 0.9 mg/dL 0.4-1.5 54 Alkaline Phosphatase 65 U/L 39-117 Alt (SGPT) 28 U/L 17-63 Ast (Sgot) 21 U/L 12-42 eGFR Non- 58.3 > 60 eGFR 74.9 > 60 55 Lipid Profile 11/22/2011 [facility] Triglyceride 80 mg/dL 40- 200 (Trig/Chol/HDL) [address] [place], [place] [address] [phone] Cholesterol 123 mg/dL Less Than 200 56 High Density Lipoprotein 38 mg/dL Low 40-60 57 Cholesterol/HDL Ratio 3.24 AVERAGE 1-4.97 Low Density Lipoprotein 69 mg/dL Less Than 100 58 Laboratory test 11/22/2011 [facility] Hemoglobin A1c 6.0 % Less [address] 6[address] [place] [address] [phone] Laboratory test 08/21/2011 [facility] Hemoglobin A1c 5.9 % Less [address] Than [address] [place] [address] [phone] Laboratory test 04/18/2011 [facility] Hemoglobin A1c 5.7 % Less [address] Than 6[address] [place] [address] [phone] Order 12/13/2010 [facility] urine Negative [address] [place] [address] [phone] Comp Metabolic 12/06/2010 [facility] Sodium 140 mmol/L 135- [address] [place] [address] [phone] Potassium 4.2 mmol/L 3.5-5.0 Chloride 103 mmol/L 101-111 Co2 (Carbon Dioxide) 30.0 mmol/L 22-32 Anion Gap 7.0 mmol/L 2-11 62 Glucose 111 mg/dL High 70-100 BUN 12 mg/dL 6-24 Creatinine 1.00 mg/dL 0.50-1.40 One Over Creatinine 1.00 BUN/Creatinine Ratio 12.0 8-20 Calcium 9.1 mg/dL 8.1-9.9 Total Protein 6.4 GM/DL 6.2-8.1 Albumin 3.8 GM/DL 3.2-5.2 Globulin 2.6 GM/DL 2-4 Albumin/Globulin Ratio 1.5 1-3 Bilirubin Total 0.8 mg/dL 0.4-1.5 63 Alkaline Phosphatase 65 U/L 39-117 Alt (SGPT) 32 U/L 17-63 Ast (Sgot) 24 U/L 12-42 eGFR Non- 72.1 > 60 eGFR 92.7 > 60 64 Lipid Profile 12/06/2010 [facility] Triglyceride 68 mg/dL 40- 200 (Trig/Chol/HDL) [address] [place] [address] [phone] Cholesterol 128 mg/dL Less Than 200 65 High Density Lipoprotein 38 mg/dL Low 40-60 66 Cholesterol/HDL Ratio 3.37 AVERAGE 1-4.97 Low Density Lipoprotein 76 mg/dL Less Than 100 67 Laboratory test 12/06/2010 [facility] Hemoglobin A1c 6.0 % Less Than [address] [place] [address] [phone] 1 AA 09/24 2 Standard intensity warfarin therapeutic range: 2.0-3.0 High intensity warfarin therapeutic range: 2.5-3.5 3 09/24 4 SEE RESULT BELOW Name: MARICARMEN HOWELL : [address]: Sarina Montes MD Acct: [id number] Unit: [id number] AGE: 87 Location: [facility] Re09/11/18 SEX: M Status: REG REF SPEC: [id number] POOL: 09/11/18-[address] [facility] [address]: Sarina Montes MD REQ: [id number] RECD: 09/11/18-1216 STATUS: COMP [facility] DR: Deysi Chen MD _ SOURCE: URINE SPDESC: ORDERED: Urine Culture COMMENTS: AA 09/24 QUERIES: Urine Source: Clean Catch Procedure Result Reported Site Urine Culture Final 09/12/18- 1249 ML No Growth (<1,000 CFU/mL) * ML - Main Lab . END OF REPORT DEPARTMENT OF PATHOLOGY, [address] [place] [address] Jose Francisco Smith M.D. Director [facility] # [id number] 5 Because ethnic data is not always readily [...] 15-29 5 Kidney failure <15 (or dialysis) 6 It is recognized that currently available assays [...] 95% confidence interval of 99.78 to 99.96%. 7 RESULT: Results suggest past infection. ADDITIONAL INFORMATION [...] primary infection with EBV. Test Performed by: [facility] [place] [address] 8 Result does not exclude the possibility of exposure to hepatitis A virus. Antibody level during early infection stage may be below the limit of detection of the assay. Test Performed by: [facility] [place] [address] 9 Test Performed by: [facility] [place] [address] 10 TEST PROCEDURE TEST RESULTS OUT OF RANGE REFERENCE RANGE STRATIFY JCV(TM) AB WITH INDEX W/REFLEX TO INHIBITION INDEX VALUE 1.43 H JCV Antibody Positive Index interpretice criteria: <0.20 negative 0.20-0.40 indeterminate >0.40 positive INTERPRETATION: Negative: Antibodies to JCV not detected. Indeterminate:Low level reactivity detected, see Inhibition Assay result to follow for the final antibody result. Positive: Antibodies to KATHRYN virus (JCV) detected indicating the patient has been exposed to JCV at an undetermined time. The STRATIFY JCV Antibody Test is an enzyme-linked immunoabsorbent assay (XIMENA) designed to detect JCV antibodies to help identify individuals who have been exposed to the virus. Samples with low level reactivity in the detection assay are retested in a confirmation (inhibition) assay to confirm presence or absence of JCV-specific antibodies. Test performed at: [facility] [[email or web address]] [employer] [id number] [place] [id number] Director: Theodore Curry MD CLDEIDRA [id number] 11 Test Performed by: [facility] [address] [place] [address] 12 Desirable: <150 Borderline High: 150-199 High: 200-499 Very High: >500 13 Desirable: <200 Borderline High: 200-239 High: >239 14 Low: <40 Desirable: 40-60 High: >60 15 Desirable: <100 Near Optimal: 100-129 Borderline High: 130-159 High: 160-189 Very High: >189 16 Therapeutic target for the treatment of diabetes mellitus patients is <7% HBA1C, and in selective patients <6.0%. Please refer to [place] [employer] diabetic care guidelines for further information. 17 Unable to calculate due to low microalbumin 18 Because ethnic data is not always readily [...] 15-29 5 Kidney failure <15 (or dialysis) 19 Desirable <150 Borderline high 150-199 High 200-499 Very High >500 20 Desirable <200 Borderline high 200-239 High >239 21 Low <40 Desirable: 40-60 High: >60 22 Desirable: <100 mg/dL Near Optimal: 100-129 mg/dL Borderline High: 130-159 mg/dL High: 160-189 mg/dL Very High: >189 mg/dL 23 Therapeutic target for the treatment of diabetes Mellitus patients is <7% HBA1C, and in selective patients <6.0%.Please refer to [place] [employer] Diabetic care guidelines for further information. 24 Unable to calculate due to low microalbumin 25 Desirable <150 Borderline high 150-199 High 200-499 Very High >500 26 Desirable <200 Borderline high 200-239 High >239 27 Low <40 Desirable: 40-60 High: >60 28 Desirable: <100 mg/dL Near Optimal: 100-129 mg/dL Borderline High: 130-159 mg/dL High: 160-189 mg/dL Very High: >189 mg/dL 29 Therapeutic target for the treatment of diabetes Mellitus patients is <7% HBA1C, and in selective patients <6.0%.Please refer to [place] [employer] Diabetic care guidelines for further information. 30 Unable to calculate due to low microalbumin 31 Director Of Contracts: [id number] CHARLI ALEJANDRE 32 Director Of Contracts: [id number] KO GONZALEZ 33 Because ethnic data is not always readily [...] 15-29 5 Kidney failure <15 (or dialysis) 34 SEE RESULT BELOW Name: MARICARMEN HOWELL : [address]: Servando Rodriguez MD Acct: [id number] Unit: [id number] AGE: 84 Location: ENDO Re10/28/14 SEX: M Status: REG REF SPEC: [id number] POOL: 10/28/14-[address] [facility] [address]: Servando Rodriguez MD REQ: [id number] RECD: 10/28/149117 STATUS: SHELLI SALAS DR: Hailey Bautista DESCRIPTIVE CATALOG LIBRARIAN _ ORDERED: LEVEL IV FINAL DIAGNOSIS Colon, [...] (signature on file) Jose Francisco Smith MD [id number] END OF REPORT * ML=Testing performed at Main Lab DEPARTMENT OF PATHOLOGY, [address] [place] [address] Jose Francisco Smith M.D. Director [facility] # [id number] 35 Unable to calculate due to low microalbumin 36 PT IS FASTING 37 Because ethnic data is not always readily [...] 15-29 5 Kidney failure <15 (or dialysis) 38 Desirable <150 Borderline high 150-199 High 200-499 Very High >500 39 Desirable <200 Borderline high 200-239 High >239 40 Low <40 Desirable: 40-60 High: >60 41 Desirable: <100 mg/dL Near Optimal: 100-129 mg/dL Borderline High: 130-159 mg/dL High: 160-189 mg/dL Very High: >189 mg/dL 42 Therapeutic target for the treatment of diabetes Mellitus patients is <7% HBA1C, and in selective patients <6.0%.Please refer to [place] [employer] Diabetic care guidelines for further information. 43 Because ethnic data is not always readily [...] 15-29 5 Kidney failure <15 (or dialysis) 44 Microalbuminuria in a random sample is defined as: Microalbumin/Creatinine ratio of 30-299 ug/mg. 45 HDL Interpretation: Undesirable: High Risk: Less than 40 mg/dL Desirable: Low Risk: Greater than 60 mg/dL 46 LDL Interpretation: Low Risk Optimal Level: LDL Less than 100 mg/dL Near or Above Optimal: LDL 100-129 mg/dL Borderline High Risk: LDL 130-159 mg/dL High Risk: LDL 160-189 mg/dL Very High Risk: LDL Greater than 189 mg/dL 47 Therapeutic target for the treatment of diabetes Mellitus patients is <7% HBA1C, and in selective patients <6.0%.Please refer to [place] [employer] Diabetic care guidelines for further information. 48 Therapeutic target for the treatment of diabetes Mellitus patients is <7% HBA1C, and in selective patients <6.0%.Please refer to [place] [employer] Diabetic care guidelines for further information. 49 Because ethnic data is not always readily [...] 15-29 5 Kidney failure <15 (or dialysis) 50 HDL Interpretation: Undesirable: High Risk: Less than 40 mg/dL Desirable: Low Risk: Greater than 60 mg/dL 51 LDL Interpretation: Low Risk Optimal Level: LDL Less than 100 mg/dL Near or Above Optimal: LDL 100-129 mg/dL Borderline High Risk: LDL 130-159 mg/dL High Risk: LDL 160-189 mg/dL Very High Risk: LDL Greater than 189 mg/dL 52 MICROALBUMINURIA IN A RANDOM SAMPLE IS DEFINED : MICROALBUMIN/CREATININE RATIO OF 30-299 ug/mg. . 53 Anion gap measurement may be of limited value in the presence of any alkalosis, especially in a combined acid base disorder. . 54 A metabolite of Naproxen, O-desmethylnaproxen, has been shown to interfere with the Jendrassik-Stuckey method for measuring total bilirubin. Samples from patients who have taken Naproxen have shown spurious elevation in total bilirubin levels. 55 Because ethnic data is not always readily [...] 15-29 5 Kidney failure <15 (or dialysis) 56 CHOLESTEROL INTERPRETATION: Desirable: Less than 200 MG/DL Borderline-High Risk: 200-239 MG/DL High-Risk: 240 MG/DL and over 57 HDL INTERPRETATION: Undesirable: High Risk: Less than 40 MG/DL Desirable: Low Risk: Greater than 60 MG/DL 58 LDL INTERPRETATION: Low Risk Optimal Level: LDL Less than 100 MG/DL Near or Above Optimal: LDL 100-129 MG/DL Borderline High Risk: LDL 130-159 MG/DL High Risk: LDL 160-189 MG/DL Very High Risk: LDL Greater than 189 MG/DL 59 THERAPEUTIC TARGET FOR THE TREATMENT OF DIABETES MELLITUS PATIENTS IS <7% HBA1C, AND IN SELECTIVE PATIENTS <6.0%. PLEASE REFER TO [place] [employer] DIABETIC CARE GUIDELINES FOR FURTHER INFORMATION. 60 THERAPEUTIC TARGET FOR THE TREATMENT OF DIABETES MELLITUS PATIENTS IS <7% HBA1C, AND IN SELECTIVE PATIENTS <6.0%. PLEASE REFER TO [employer] [employer] DIABETIC CARE GUIDELINES FOR FURTHER INFORMATION. 61 THERAPEUTIC TARGET FOR THE TREATMENT OF DIABETES MELLITUS PATIENTS IS <7% HBA1C, AND IN SELECTIVE PATIENTS <6.0%. PLEASE REFER TO [employer] DIABETIC CARE GUIDELINES FOR FURTHER INFORMATION. 62 Anion gap measurement may be of limited value in the presence of any alkalosis, especially in a combined acid base disorder. . 63 A metabolite of Naproxen, O-desmethylnaproxen, has been shown to interfere with the Jendrassik-Bibiana method for measuring total bilirubin. Samples from patients who have taken Naproxen have shown spurious elevation in total bilirubin levels. 64 Because ethnic data is not always readily [...] 15-29 5 Kidney failure <15 (or dialysis) 65 CHOLESTEROL INTERPRETATION: Desirable: Less than 200 MG/DL Borderline-High Risk: 200-239 MG/DL High-Risk: 240 MG/DL and over 66 HDL INTERPRETATION: Undesirable: High Risk: Less than 40 MG/DL Desirable: Low Risk: Greater than 60 MG/DL 67 LDL INTERPRETATION: Low Risk Optimal Level: LDL Less than 100 MG/DL Near or Above Optimal: LDL 100-129 MG/DL Borderline High Risk: LDL 130-159 MG/DL High Risk: LDL 160-189 MG/DL Very High Risk: LDL Greater than 189 MG/DL 68 THERAPEUTIC TARGET FOR THE TREATMENT OF DIABETES MELLITUS PATIENTS IS <7% HBA1C, AND IN SELECTIVE PATIENTS <6.0%. PLEASE REFER TO [employer] DIABETIC CARE GUIDELINES FOR FURTHER INFORMATION. Procedures Date Code Description Status 09/24/2018 33866 TKR Total Knee Replacement Completed 09/24/2018 79944 TKR Total Knee Replacement Completed 09/09/2018 71523 EKG Tracing & Interpretation Completed 07/30/2018 [id number] Diabetic Retinal Eye Exam Completed 01/24/2018 [id number] Diabetic Retinal Eye Exam Completed 07/06/2017 [id number] Diabetic Retinal Eye Exam Completed 11/28/2016 [id number] Diabetic Retinal Eye Exam Completed 05/30/2016 [id number] Diabetic Retinal Eye Exam Completed 09/10/2015 40677 EKG Tracing & Interpretation Completed 06/07/2015 [id number] Diabetic Retinal Eye Exam Completed 11/27/2014 [id number] Diabetic Retinal Eye Exam Completed 10/28/2014 [id number] Colonoscopy Completed 04/21/2014 [id number] Diabetic Retinal Eye Exam Completed 08/07/2012 [id number] Diabetic Retinal Eye Exam Completed 12/13/2010 37702 EKG Tracing & Interpretation Completed 12/07/2008 75382 EKG Tracing & Interpretation Completed 08/02/2004 [id number] Colonoscopy Completed Encounters Type Date Location Provider Dx Diagnosis Office Visit 09/09/2018 [facility] Internal Hailey Bautista, Z01.818 Encounter for other 11:40a Medicine N.P. preprocedural examination M17.0 Bilateral primary osteoarthritis of knee E11.9 Type 2 diabetes mellitus without complications I10 Essential (primary) hypertension G47.30 Sleep apnea, unspecified E78.00 Pure hypercholesterolemia, unspecified Office Visit 07/22/2018 2:00p [facility] Sarina Montes, M25.561 Pain in right Of C.M.A. M.D. knee M25.461 Effusion, right knee M17.0 Bilateral primary osteoarthritis of knee Office Visit 12/04/2017 9:20a [facility] Internal Hailey Bautista, Z00.00 Encntr for Medicine [...] in right knee Office Visit 07/09/2017 2:00p [facility] Dermatology Gianluca Yentzer, D23.9 Other benign MD neoplasm of skin, unspecified L57.0 Actinic keratosis D18.01 Hemangioma of skin and subcutaneous tissue L82.1 Other seborrheic keratosis R60.0 Localized edema Office Visit 06/27/2017 3:40p [facility] Internal Hailey Bautista, E11.9 Type 2 diabetes Medicine N.P. mellitus without complications I10 Essential (primary) hypertension M25.561 Pain in right knee D23.9 Other benign neoplasm of skin, unspecified Office Visit 12/04/2016 2:40p [facility] Internal Hailey Bautista, L98.9 Disorder of the Medicine N.P. skin and subcutaneous tissue, unspecified Office Visit 11/27/2016 2:20p [facility] Internal Hailey Bautista, Z00.01 Encounter for Medicine N.P. general adult medical exam w abnormal findings I10 Essential (primary) hypertension E11.9 Type 2 diabetes mellitus without complications E78.00 Pure hypercholesterolemia, unspecified M25.561 Pain in right knee M25.562 Pain in left knee Z23 Encounter for immunization Office Visit 07/04/2016 2:40p [facility] Internal Hailey Bautista, J20.9 Acute bronchitis, Medicine N.P. unspecified Office Visit 04/27/2016 8:40a [facility] Internal Hailey Bautista, E11.9 Type 2 diabetes Medicine N.P. mellitus without complications I10 Essential (primary) hypertension M25.562 Pain in left knee Office Visit 10/27/2015 10:40a [facility] Internal Hailey Bautista, Z00.00 Encntr for Medicine N.P. general adult medical exam w/o abnormal findings E11.9 Type 2 diabetes mellitus without complications E78.0 Pure hypercholesterolemia I10 Essential (primary) hypertension M79.669 Pain in unspecified lower leg M79.1 Myalgia R20.8 Other disturbances of skin sensation M79.661 Pain in right lower leg Office Visit 09/10/2015 3:20p [facility] Internal Hailey Bautista, Z01.818 Encounter for other Medicine N.P. preprocedural examination H26.9 Unspecified cataract E11.9 Type 2 diabetes mellitus without complications I10 Essential (primary) hypertension G47.33 Obstructive sleep apnea (adult) (pediatric) Office Visit 05/28/2015 4:00p [facility] Internal Hailey Bautista, M25.562 Pain in left knee Medicine N.P. Office Visit 04/27/2015 9:00a [facility] Internal Hailey Bautista, I10 Essential Medicine N.P. (primary) hypertension E11.9 Type 2 diabetes mellitus without complications Office Visit 10/06/2014 9:20a [facility] Internal Hailey Bautista, V70.0 Examination Medicine N.P. General Medical Routine AT Health Care Facility 250.00 Diabetes Mellitus W/O Compl Type II Or Unspec Controlled 401.1 Hypertension Benign 272.4 Hyperlipidemia Other Unspec 729.82 Cramp Of Limb V03.82 Streptococcus Pneumoniae Vaccination Spec Other Office Visit 07/15/2014 3:20p [facility] Internal Wade Horvath 466.0 Bronchitis Acute Medicine Mario Morales 380.4 Impacted Cerumen Office Visit 04/06/2014 8:40a [facility] Internal Hailey Bautista, 250.00 Diabetes Mellitus Medicine N.P. W/O Compl Type II Or Unspec Controlled 401.1 Hypertension Benign 272.4 Hyperlipidemia Other Unspec Office Visit 03/30/2014 9:00a [facility] 844.9 [facility] Knee & Leg Unspec C.M.A. Office Visit 09/25/2013 10:20a [facility] Internal Erna Crenshaw, 250.00 Diabetes Mellitus Medicine Mario, FACP W/O Compl Type II Or Unspec Controlled 726.19 Shoulder Disorders Other Spec 599.89 Urinary Tract Other Spec Disorders Office Visit 06/30/2013 9:00a [facility] Internal Erna Crenshaw, 250.00 Diabetes Mellitus Medicine Mario, FACP W/O Compl Type II Or Unspec Controlled 719.45 Pain Joint Pelvic Region & Thigh 478.9 Upper Resp Tract Disease Other & Unspec Office Visit 04/03/2013 3:40p [facility] Internal Erna Flower, 719.45 Pain Joint Medicine M.D., FACP Pelvic Region & Thigh 250.00 Diabetes Mellitus W/O Compl Type II Or Unspec Controlled 789.9 Abdomen & Pelvis Symptoms Other Office Visit 02/24/2013 9:00a [facility] Internal Erna Flower, 250.00 Diabetes Mellitus Medicine M.D., FACP W/O Compl Type II Or Unspec Controlled 272.0 Hypercholesterolemia Pure Office Visit 11/12/2012 9:20a [facility] Internal Erna Flower, 250.00 Diabetes Mellitus Medicine M.D., FACP W/O Compl Type II Or Unspec Controlled 272.0 Hypercholesterolemia Pure 401.1 Hypertension Benign Office Visit 06/04/2012 11:00a [facility] Internal Hailey Bautista, 466.0 Bronchitis Acute Medicine N.P. Office Visit 05/15/2012 9:00a [facility] Internal Erna Flower, 250.00 Diabetes Mellitus Medicine M.John, FACP W/O Compl Type II Or Unspec Controlled 724.3 Sciatica 272.0 Hypercholesterolemia Pure Office Visit 11/28/2011 9:00a [facility] Internal Erna Flower, 250.00 Diabetes Mellitus Medicine M.DJeevan, FACP W/O Compl Type II Or Unspec Controlled 272.0 Hypercholesterolemia Pure 723.1 Cervicalgia 719.46 Pain Joint Lower Leg Office Visit 08/24/2011 9:20a [facility] Internal Erna Flower, 250.00 Diabetes Mellitus Medicine M.John, FACP W/O Compl Type II Or Unspec Controlled 307.49 Sleep Disorder Other Office Visit 04/26/2011 10:00a DO Not Use Erna Flower, 250.00 Diabetes Joon Martin, FACP Mellitus W/O Compl Type II Or Unspec Controlled 726.19 Shoulder Disorders Other Spec Office Visit 12/13/2010 11:00a DO Not Use Ernamaria guadalupe Crenshaw, V70.0 Examination Joon Martin, FACP General Medical Routine AT Health Care Facility 250.00 Diabetes Mellitus W/O Compl Type II Or Unspec Controlled 272.4 Hyperlipidemia Other Unspec Office Visit 09/15/2010 DO Not Use Erna Flower, 250.00 Diabetes 10:20a Joon Martin, FACP Mellitus W/O Compl Type II Or Unspec Controlled Office Visit 06/06/2010 DO Not Use Hailey Varn, 782.1 Rash & Other 9:45a [facility] [facility] Nonspec Skin Eruption 389.9 Hearing Loss Unspec Office Visit 05/19/2010 10:00a DO Not Use Erna Flower, 250.00 Diabetes Joon Martin, FACP Mellitus W/O Compl Type II Or Unspec Controlled 726.19 Shoulder Disorders Other Spec Office Visit 03/28/2010 DO Not Use Hailey Varn, 461.9 Sinusitis Acute 3:00p [facility] [facility] 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 Plantar Fascia Office Visit 01/01/2009 DO Not Use Hailey Varn, 923.03 Contusion Upper 4:15p [employer] [facility] [facility] Arm Office Visit 12/07/2008 DO Not [...] Office Visit 05/07/2008 12:15p DO Not Use Ernamaria guadalupe Crenshaw, 959.7 Injury Knee Joon Martin, FACP Leg Ankle & Foot Other & Unspec 681.10 Cellulitis & Abscess Toe Unspec V06.5 Tetanus Diphtheria (DT) Office Visit 04/27/2008 10:00a DO Not Use Ernamaria guadalupe Crenshaw, 719.41 Pain Joint Joon Martin, FACP Shoulder Region 250.00 Diabetes Mellitus W/O Compl Type II Or Unspec Controlled Office Visit 04/02/2008 DO Not Use Ernamaria guadalupe Crenshaw, 529.3 Hypertrophy Tongue 2:00p Joon Martin, FACP Papillae Office Visit 12/25/2007 DO Not Use Erna Flower, 250.00 Diabetes Mellitus 10:00a Joon Martin, FACP W/O Compl Type II Or Unspec Controlled Office Visit 10/22/2007 DO Not Use Jovani 388.70 Otalgia & Earache 1:15p Joon Lincoln [...] Use Erna Flower, 250.02 Diabetes 11:30a Joon Martin, FACP Mellitus W/O Compl Type II Or Unspec Type Uncontrol Office Visit 04/26/2007 DO Not Use Hailey Bautista, 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 Office Visit 01/15/2007 DO Not Use Hailey 110.5 Dermatophytosis Body 2:30p [employer] [facility], N.P. Office Visit 11/27/2006 DO Not Use Hailey 719.41 Pain Joint Shoulder 9:00a [employer] V[facility], N.P. Region Office Visit 10/11/2006 DO Not Use Erna Flower, 250.00 Diabetes Mellitus 10:30a Joon Martin, FACP W/O Compl Type II Or Unspec Controlled 401.1 Hypertension Benign Office Visit 09/03/2006 DO Not Use Hailey 558.9 Gastroenteritis & 11:45a [employer] [facility], N.P. Colitis Noninfectious Other Plan of Treatment Future Appointment(s):10/07/2018 9:45 am - Sarina Montes M.D. at [facility]09/11/2018 - Sarina Montes M.D.M25.561 Pain in right kneeFollow up:Follow up: 2 weeks after yvmfouaR87.461 Effusion, right kneeM17.0 Bilateral primary osteoarthritis of knee
[2018-09-27] MEDS ORDERED: Metoprolol Tartrate IV* 1 MG/ML 5 ML VIAL ONE (13:55)
[2018-09-27] MEDS: Metoprolol Tartrate IV* 1 MG/ML 5 ML VIAL IV PRN ×2 (14:12→23:16)
[2018-09-27] MEDS: oxyCODONE TAB* 5 MG TAB PO PRN (15:55)
[2018-09-27] MEDS ORDERED: Docusate CAP* 100 MG PO PRN (16:16)
[2018-09-27] MEDS ORDERED: Cyclobenzaprine TAB* 10 MG PO PRN (16:16)
[2018-09-27] MEDS ORDERED: Magnesium Hydroxide LIQ* 30 ML UDC PO PRN (16:19)
[2018-09-27] MEDS ORDERED: Dextrose 50% Syringe 50 ML* 25 GM/50 ML SYRINGE IV PUSH PRN (16:19)
[2018-09-27] MEDS ORDERED: Metoprolol Tartrate IV* 1 MG/ML 5 ML VIAL IV ONE (17:21)
[2018-09-27] MEDS: Atorvastatin* 10 MG TAB PO SCH (17:38)
[2018-09-27] MEDS: Metoprolol Tartrate TAB* 25 MG PO SCH (18:04)
[2018-09-27] MEDS: Insulin LISPRO* 1 UNITS UNIT SUBCUT SCH ×2 (18:04→20:56)
--- NOTE | 2018-09-27 20:13 | HP ---
HISTORY AND PHYSICAL: DATE OF ADMISSION: 09/27/18 TIME OF ADMISSION: 3 o'clock p.m. PRIMARY CARE PHYSICIAN: Te Boles NP. CHIEF COMPLAINT: Transfer from [facility] [email or web address]] for AFib with RVR. HISTORY OF PRESENT ILLNESS: This is an 87-year-old man with history of diabetes and hypertension who was initially admitted to the orthopedic service on 09/24/18 for an elective right knee replacement. His surgery was uneventful and on 09/26/18, he was transferred to [facility] [[email or web address] He was noted to be tachycardic and hypoxic, so a CTA was ordered and showed moderate volume pulmonary emboli burden with findings of right heart strain and bilateral pleural effusions and associated lower lobe volume loss. Mr. Reyes feels well and has occasional right knee pain, but otherwise has no complaints. He denies chest pain, shortness of breath, palpitations, lightheadedness, dizziness, nausea, vomiting, constipation or diarrhea. PAST MEDICAL HISTORY: Diabetes, hypertension, hyperlipidemia, and sleep apnea. MEDICATIONS: In [facility] [[email or web address]] include: 1. Tylenol 650 q.4 p.r.n. pain. 2. Eliquis 10 mg b.i.d. 3. Atorvastatin 10 mg q.h.s. 4. Flexeril 10 mg t.i.d. p.r.n. spasm. 5. Docusate 100 mg b.i.d. as needed for constipation. 6. Lasix 20 mg daily. 7. Losartan 50 mg daily. 8. Milk of mag 30 mL q.6 p.r.n. constipation. 9. Oxycodone 5 mg q.4 p.r.n. pain. ALLERGIES: PENICILLIN. REVIEW OF SYSTEMS: As per the HPI, remainder of 14-point review of systems negative. PHYSICAL EXAMINATION GENERAL: Alert, well-appearing man, who appears younger than his stated age. He is obese. VITAL SIGNS: Temperature 98.8, heart rate 150, respiratory rate 20, pulse ox 94 % on room air, blood pressure 109/52. HEENT: Pupils equal, round, and reactive to light. His oral mucosa is moist. NECK: No JVP. No adenopathy. CHEST: He is tachycardiac and irregular rhythm. His lungs are clear bilaterally. ABDOMEN: Obese, soft, nontender, nondistended. EXTREMITIES: His extremities have trace lower extremity edema. His right knee is wrapped in an Mundo. His distal pulses are 2+ bilaterally and sensation is intact. ASSESSMENT AND PLAN: This is an 87-year-old man with history of hypertension, diabetes who had a total knee arthroplasty on 08/2818. His postop course has been complicated by acute pulmonary emboli and atrial fibrillation with RVR in RU and this is the reason he was transferred to telemetry today. 1. Atrial fibrillation with RVR. I actually think this rhythm looks more like atrial flutter, which may be more amenable to conversion, so if he does not covert with medication, I will consider cardiology consult for possible RAJI cardioversion. I have given him 5 mg of IV metoprolol and he responded very nicely. He has required this twice so far today and both times, he responded very well. I am also starting p.o. metoprolol to help to control this. I have an echo ordered and it is being done now. I have discussed anticoagulation with his family. 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 A TSH is pending. 2. Acute pulmonary emboli, provoked and perioperative despite being on appropriate DVT prophylaxis. He has been increased to Eliquis 10 mg b.i.d. He has never had a bleed. Again, an echocardiogram is pending, which will help workup the extent of RV strain. 3. Hypertension. His blood pressure is currently well controlled on his home medication regimen. 4. Type 2 diabetes. He takes only metformin at home. I am putting him on fingersticks and correction. 5. DVT prophylaxis. He is on therapeutic anticoagulation. 6. Disposition. Admit to telemetry. [id number]/[facility] #: [id number] MARY JO
[2018-09-27] MEDS: Apixaban* 5 MG TAB PO SCH (20:32)
--- NOTE | 2018-09-27 22:02 | ECHO ---
*[facility]* [place] [address] Fax #: [phone] Patient: Eric, Height: 65 in / 165.1 Narinder cm : 1930 Weight: 247.5 lb / Study Date: 09/27/2018 112.5 kg Age: 87 BP: 109 / 52 Gender: M BMI/BSA: 41.3 kg/m^2 / HR: 77 bpm 2.17 m^2 *Net Sql Developer: * Magalis Su [facility] *Referring Physician: * Danis Pratt MD ; Wilma Jacobson *Reading Physician: * Danis Pratt MD Indications: Pulmonary Embolism. History: Functional status: Following treatment plan for sleep apnea. Risk factors: Hypertension. Diabetes mellitus. Obese. Conclusions Summary: 1. Left ventricle: There is mild concentric hypertrophy. Systolic function is normal. The estimated ejection fraction is 55-60%. 2. Right ventricle: The cavity size is mildly dilated. Wall thickness is mildly increased. Systolic function is mildly to moderately reduced. 3. Ventricular septum: There is septal flattening of the interventricular septum consistent with RV volume or pressure overload. 4. Aortic valve: The findings are consistent with mild to moderate stenosis. There is mild regurgitation. 5. Tricuspid valve: There is mild regurgitation. Study data: Procedure: Transthoracic echocardiography was performed. Image quality was fair. Complete 2D, spectral Doppler, and color flow Doppler. Location: Bedside. Patient status: Inpatient. Patient room number: 444-2. No prior study is available for comparison. Rhythm: Atrial fibrillation. Findings Left ventricle: The cavity size is normal. There is mild concentric hypertrophy. Systolic function is normal. The estimated ejection fraction is 55-60%. Wall motion is normal; there are no regional wall motion abnormalities. Left ventricular diastolic function parameters are indeterminate. Right ventricle: The cavity size is mildly dilated. Wall thickness is mildly increased. Systolic function is mildly to moderately reduced. Ventricular septum: There is septal flattening of the interventricular septum consistent with RV volume or pressure overload. Left atrium: The atrium is mildly dilated. Right atrium: The atrium is mildly dilated. Mitral valve: The leaflets are mildly thickened. There is no evidence of stenosis. There is trace regurgitation. Aortic valve: Not well visualized. The leaflets are mildly calcified. The findings are consistent with mild to moderate stenosis. There is mild regurgitation. Tricuspid valve: The leaflets are normal thickness. There is no evidence of stenosis. There is mild regurgitation. Pulmonic valve: Not well visualized. There is no evidence of stenosis. There is trace regurgitation. Aorta: Ascending aorta: The ascending aorta is appears normal. Aortic arch: The aortic arch is poorly visualized. The aortic root is not dilated. Pericardium: A prominent pericardial fat pad is present. There is no pericardial effusion. Pulmonary arteries: The main pulmonary artery is normal-sized. Systolic pressure is mildly increased. Systemic veins: Inferior vena cava: The vessel is dilated. The respirophasic diameter changes are blunted (< 50%). Measurements Left ventricle Value Ref Right atrium continued Value Ref SOHAIL, LAX (L) 3.9 cm 4.2 - 5.8 SI dim, ES, A4C (H) 5.5 cm 3.4 - 5.3 ESD, LAX 3.0 cm 2.5 - 4.0 Estimated RAP 15 mm Hg --------- FS, LAX (L) 23 % 25 - 43 PW, ED, LAX (H) 1.2 cm 0.6 - 1.0 Aortic valve Value Ref FS (L) 23 % 25 - 43 Anayeli diam, ED 2.0 cm --------- PW, ED (H) 1.2 cm 0.6 - 1.0 Peak v, S 2.4 m/sec --------- E', lat anayeli, TDI 15.4 cm/sec >=10.0 VTI, S 38.5 cm -- ------- E/e', lat anayeli, 8 Mean grad, S 15.0 mm Hg ----- ---- TDI Peak grad, S 23.0 mm Hg --------- E', med anayeli, TDI 9.9 cm/sec >=7.0 LVOT/AV, VTI ratio 0.47 -- ------- E/e', med anayeli, 13 JULIO, VTI 1.47 cm^2 ----- ---- TDI JULIO, Vmax 1.50 cm^2 --------- E', avg, TDI 12.7 cm/sec E/e', avg, TDI 10 <=14 Mitral valve Value Re f Peak E 1.29 m/sec --------- LVOT Value Ref Peak A 0 m/sec --------- Diam, S 2.00 cm Decel time 122 ms --------- Area 3.1 cm^2 Peak grad, D 6.7 mm Hg --------- Peak juliocesar, S 1.15 m/sec VTI, S 18.0 cm Pulmonic valve Value Ref Peak grad, S 5 mm Hg Peak v, S 1.01 m/sec --------- Mean grad, S 3 mm Hg Peak grad, S 4.0 mm Hg --------- SV 57 ml SV/bsa 26 ml/m^2 Tricuspid valve Value Ref TR peak v 2.33 m/sec <=2.8 Ventricular septum Value Ref Peak RV-RA grad, S 22 mm Hg --------- IVS, ED (H) 1.3 cm 0.6 - 1.0 Aortic root Value Ref Right ventricle Value Ref Root diam 3.0 cm <4.3 SOHAIL, LAX 3.7 cm SOHAIL minor ax, A4C (H) 4.6 cm 1.9 - 3.5 Ascending aorta Value Ref mid AAo AP diam, S 3.4 cm --------- Pressure, S 37 mm Hg Decending aorta Value Ref Left atrium Value Ref Licha peak jluiocesar 0.72 m/sec --------- AP dim, ES 3.70 cm 3.00 - 4.00 Pulmonary artery Value Ref ML dim, A4C 4.0 cm Pressure, S 33.0 mm Hg --------- SI dim, A4C 6.2 cm Vol/bsa, ES, 1-p 21 ml/m^2 12 - 37 Inferior vena cava Value Ref A4C Diam 2.6 cm --------- Vol/bsa, ES, A/L 25 ml/m^2 16 - 34 Right atrium Value Ref SI dim, ES (H) 5.5 cm 3.4 - 5.3 ML dim, ES, A4C 4.0 cm 2.6 - 4.4 Legend: (L) and (H) rian values outside specified reference range. Prepared and electronically signed by Danis Pratt MD 09/27/2018 22:01
[2018-09-27 23:20] LABS: Urine Appearance Cloudy; Urine Bacteria Absent (Absent); Urine Bilirubin Negative (Negative); Urine Blood 1+ (Negative); Urine Color Yellow; Urine Glucose Negative (Negative); Urine Ketones Trace (Negative); Urine Nitrite Negative (Negative); Urine Protein Negative (Negative); Urine Red Blood Cell Trace(0-2/hpf) (Absent); Urine Specific Gravity 1.019 (1.010-1.030); Urine Squamous Epithelial Cell Present (Absent); Urine Urobilinogen Negative (Negative); Urine White Blood Cell 2+(11-20/hpf) (Absent)
[2018-09-28] MEDS: oxyCODONE TAB* 5 MG TAB PO PRN (00:19)
[2018-09-28] MEDS: Metoprolol Tartrate TAB* 25 MG PO SCH ×3 (02:03→17:18)
[2018-09-28] MEDS: Metoprolol Tartrate IV* 1 MG/ML 5 ML VIAL IV PRN ×2 (04:23→12:20)
[2018-09-28 05:43] LABS: ABS Monocytes 1.2 10^3/ul (0-0.8); ABS Neutrophils 9.5 10^3/ul (1.5-7.7); Eosinophil % 0.3 %; Hematocrit 30 % (42-52); Hemoglobin 10.1 g/dL (14.0-18.0); Lymphocyte % 21.7 %; Mean Corpuscular HGB Conc 34 g/dL (31-36); Mean Corpuscular Hemoglobin 30 pg (27-31); Mean Corpuscular Volume 89 fL (80-94); Mean Platelet Volume 7.4 fL (7.4-10.4); Nucleated Red Blood Cells % 0.2; Platelet Count 265 10^3/uL (150-450); Red Blood Count 3.34 10^6 /uL (4.18-5.48); Red Cell Distribution Width 14 % (10.5-15); White Blood Count 13.8 10^3/uL (3.5-10.8)
[2018-09-28 06:04] LABS: Anion Gap 10 mmol/L (2-11); BUN/Creatinine Ratio 21.5 (8-20); Blood Urea Nitrogen 20 mg/dL (6-24); CO2 Carbon Dioxide 20 mmol/L (22-32); Calcium 7.9 mg/dL (8.6-10.3); Chloride 100 mmol/L (101-111); EGFR African American 93.2 (>60); Glucose 155 mg/dL (70-100); Sodium 130 mmol/L (135-145)
[2018-09-28 06:28] LABS: TSH (Thyroid Stimulating Horm) 2.24 mcIU/mL (0.34-5.60)
--- NOTE | 2018-09-28 08:42 | PN ---
Progress Note - Progress Note Date of Service: 09/28/18 SOAP: Subjective: Pt. reports right knee pain is controlled. Denies cp/sob. Objective: Vital Signs: Temp Pulse Resp BP Pulse Ox 97.9 F 157 20 126/73 96 09/28/18 03:10 09/28/18 04:20 09/28/18 07:54 09/28/18 04:20 09/28/18 03:10 Laboratory Results - last 24 hr 09/27/18 09/27/18 09/27/18 16:32 20:30 23:00 WBC RBC Hgb Hct MCV MCH MCHC RDW Plt Count MPV Neut % (Auto) Lymph % (Auto) Love % (Auto) Eos % (Auto) Baso % (Auto) Absolute Neuts (auto) Absolute Lymphs (auto) Absolute Monos (auto) Absolute Eos (auto) Absolute Basos (auto) Absolute Nucleated RBC Nucleated RBC % Sodium Potassium Chloride Carbon Dioxide Anion Gap BUN Creatinine Est GFR ( Amer) Est GFR (Non-Af Amer) BUN/Creatinine Ratio Glucose POC Glucose (mg/dL) 158 H 155 H Calcium TSH Urine Color Yellow Urine Appearance Cloudy Urine pH 5.0 Ur Specific [place] 1.019 Urine Protein Negative Urine Ketones Trace A Urine Blood 1+ A Urine Nitrate Negative Urine Bilirubin Negative Urine Urobilinogen Negative Ur Leukocyte Esterase Trace A Urine WBC (Auto) 2+(11-20/hpf) A Urine RBC (Auto) Trace(0-2/hpf) Ur Squamous Epith Cells Present A Urine Bacteria Absent Urine Glucose Negative 09/28/18 09/28/18 09/28/18 05:14 05:14 08:17 WBC 13.8 H RBC 3.34 L Hgb 10.1 L Hct 30 L MCV 89 MCH 30 MCHC 34 RDW 14 Plt Count 265 MPV 7.4 Neut % (Auto) 68.9 Lymph % (Auto) 21.7 Love % (Auto) 8.9 Eos % (Auto) 0.3 Baso % (Auto) 0.2 Absolute Neuts (auto) 9.5 H Absolute Lymphs (auto) 3.0 Absolute Monos (auto) 1.2 H Absolute Eos (auto) 0.0 Absolute Basos (auto) 0.0 Absolute Nucleated RBC 0.0 Nucleated RBC % 0.2 Sodium 130 L Potassium 4.0 Chloride 100 L Carbon Dioxide 20 L Anion Gap 10 BUN 20 Creatinine 0.93 Est GFR ( Amer) 93.2 Est GFR (Non-Af Amer) 77.0 BUN/Creatinine Ratio 21.5 H Glucose 155 H POC Glucose (mg/dL) 157 H Calcium 7.9 L TSH 2.24 Urine Color Urine Appearance Urine pH Ur Specific [place] Urine Protein Urine Ketones Urine Blood Urine Nitrate Urine Bilirubin Urine Urobilinogen Ur Leukocyte Esterase Urine WBC (Auto) Urine RBC (Auto) Ur Squamous Epith Cells Urine Bacteria Urine Glucose RLE - incision healing well. moderate effusion, distally nvi. Assessment: 87 yo M POD 4 s/p RTKA with postop complication of PE and afib/aflutter Plan: Pt. is on metoprolol, continued tachycardia. Appreciate hospitalist management and care - agree with cardiology consult for possible cardioversion. Continue eliquis Continue PT and range of motion for right knee. Ortho to follow.
[2018-09-28] MEDS: Losartan TAB* 25 MG PO SCH (09:19)
[2018-09-28] MEDS: Apixaban* 5 MG TAB PO SCH ×2 (09:19→20:48)
[2018-09-28] MEDS: Insulin LISPRO* 1 UNITS UNIT SUBCUT SCH ×4 (09:19→20:48)
[2018-09-28] MEDS: Furosemide TAB* 20 MG PO SCH (09:19)
[2018-09-28] MEDS ORDERED: Diltiazem IV VIAL* 125 MG in NS 0.9% 100 ML* 100 ML IV ONE (12:45)
[2018-09-28 12:55] LABS: Troponin I 0.15 ng/mL (<0.04)
[2018-09-28] MEDS: Acetaminophen TAB* 325 MG PO PRN (13:51)
--- NOTE | 2018-09-28 16:56 | CONS ---
CARDIOLOGY CONSULTATION: DATE OF CONSULTATION: 09/28/18 REASON FOR EVALUATION: Atrial flutter and pulmonary embolism. HISTORY OF PRESENT ILLNESS: This is a very pleasant 87-year-old gentleman who has a history of hypertension, diabetes, hyperlipidemia, sleep apnea, who was in his usual state of health until he underwent elective right knee replacement on 09/24/18. He was transferred to the [facility] on 09/26/18. He was noted to be tachycardic and hypoxic. A CTA was ordered, which showed moderate volume pulmonary emboli and bilateral pleural effusions. An echocardiogram was obtained on 09/27/18, which revealed mild concentric LVH, EF of 55% to 60%, RV was mildly dilated, mild RVH and mild to moderately reduced RV function. There was septal flattening of the interventricular septum consistent with RV volume with pressure overload, [id number] stenosis, mild aortic insufficiency, mild TR. He had been on Eliquis prophylactic dose, which was increased to 10 mg twice a day and metoprolol was added to his regimen for rate control. His initial rhythm appeared to be flutter. His EKG appeared to be atrial flutter with rapid ventricular response. On 09/26/18, it appeared to be sinus tach at 102 with first-degree AV block and nonspecific ST depressions. The EKG from revealed what appeared to be a narrow complex tachycardia of 150, perhaps atypical flutter, SVT, with ST depressions at 1 mm diffusely and his EKG from today at noon revealed what appeared to be AFib with ventricular response to 116 and interval nonspecific lateral ST depressions, overall improved compared to the previous. He denies any chest pain or shortness of breath currently. No palpitations. No syncope, near syncope, or orthopnea. He says that he thinks 25 years ago he was told of a rapid heart rate. He does not remember the evaluation, but he was asymptomatic and told there was nothing that needed to be done. He said that he used to walk 15 minutes or so with his son. If he walks slowly , he does not get short of breath, but he says if he walks quickly, he will get short of breath. His knee had limited him for several months. He had a cortisone injection and was able to walk more comfortably about a month ago. PAST MEDICAL HISTORY: Includes possible tachycardia 20 to 25 years ago according to the patient, which was asymptomatic, obesity, sleep apnea on CPAP, diabetes, hypertension, hyperlipidemia, tobacco use of a pipe for 1 year when he was age 25. PAST SURGICAL HISTORY: Includes appendectomy, tonsillectomy, and right knee surgery in August. MEDICATIONS: At home included: 1. Metformin. 2. Januvia. 3. Irbesartan. 4. Atorvastatin. 5. Acetaminophen. As an inpatient, he is on: 1. Acetaminophen. 2. Maalox. 3. Eliquis 10 mg b.i.d. starting yesterday evening. 4. Atorvastatin 10 mg a day. 5. Flexeril 10 mg t.i.d. p.r.n. 6. Furosemide 20 mg a day. 7. Losartan 50 mg a day. 8. Magnesium hydroxide 30 cc q.6 p.r.n. 9. Metoprolol 12.5 mg q.8. 10. Oxycodone 5 mg q.4. ALLERGIES: Include PENICILLIN. FAMILY HISTORY: He has 2 brothers who are alive and well. Father of COPD at 94. Mother at 94. SOCIAL HISTORY: He has been for 49 years and accompanied by his . He has 3 children. Normally he drinks 4 double espressos a day. His alcohol, he says is rare. REVIEW OF SYSTEMS: Review of systems x10 was negative except as above. PHYSICAL EXAM: He is a well-developed, well-nourished, obese gentleman, in no apparent distress. Weight 228 pounds. O2 sats 98% on oxygen. Blood pressure 132/57, heart rate of 116. Atraumatic normocephalic. Extraocular movements intact. Sclerae anicteric. No significant JVD. Carotids 2+. Cardiac Exam: S1, S2, with a 2/6 systolic ejection murmur at the left sternal border. Chest was clear anteriorly. Abdomen: Bowel sounds present, nontender. Femoral pulses intact without bruits. Distal pulses intact. His right leg was wrapped. Left leg, no edema. Negative Homans sign. Motor strength was 5/5 in the upper extremities and the left lower extremity. Deep tenon reflexes were 2/ 4. Alert and oriented x3. DIAGNOSTIC STUDIES/LAB DATA: Labs include white count of 13.8, hematocrit of 30 , hemoglobin of 10.1, platelet count of 265. Of note, his hematocrit was 37 on 09/25/18, 44 on 09/09/18. Sodium 130, potassium of 4, BUN of 20, creatinine of 0.9. His AST was mildly elevated at 46 on 09/27/18. Cholesterol in October 2017 was 131, LDL of 71, triglycerides of 81. IMPRESSION: Mr. Reyes has history of diabetes, hypertension, hyperlipidemia, and recent knee surgery, now with tachyarrhythmia, possibly atrial flutter and atrial fibrillation, perhaps related to recent pulmonary embolism. He also has possilbe acute on chronic cor pulmonale as well as sleep apnea. He appears to be fairly well compensated at present and has better rate control on the beta- sonia. I will be reluctant to be too much more aggressive with his rate control given the fact that he may need an increased heart rate to compensate for his increased cardiac output at this point in time. He also had some diffuse ST changes raising the possibility of LVH with strain versus ischemia. For the time being, I recommend the followin. I would continue with anticoagulation as you are doing. 2. I would follow his hematocrit especially on the higher doses of Eliquis. 3. We will check serial troponins and EKGs. 4. At some point, we will consider pharmacologic stress test to evaluate for ischemia. 5. I asked him to decrease his caffeine intake. 6. We will try and maintain his potassium over 4. 7. If necessary, we could consider adding a low dose of digoxin for better rate control without lowering his blood pressure further. 8. We would continue with aggressive lipid lowering and check his lipid profile given his risk for atherosclerotic disease. 9. He does have evidence of cor pulmonale. If he develops hypotension, or further hemodynamic compromise, we could consider thrombolytic agents, although this would be at increased risk given his recent surgery. He may benefit from transfer for pulmonary embolectomy if he deteriorates. MEDICAL DECISION MAKING: Complex. [id number]/[facility] #: [id number] addendum: IV diltiazem was added 6.1 pm for rate control and he converted to nsr overnight. MOISES CAMARGO
[2018-09-28] MEDS: Atorvastatin* 10 MG TAB PO SCH (17:18)
--- NOTE | 2018-09-28 18:14 | PN ---
Subjective Date of Service: 09/28/18 Interval History: Denies SOB,CP Objective Active Medications: Acetaminophen (Tylenol Tab*) 650 mg PO Q4H PRN PRN Reason: PAIN Last Admin: 09/28/18 13:51 Dose: 650 mg Al Hydrox/Mg Hydrox/Simethicone (Maalox Plus*) 30 ml PO Q6H PRN PRN Reason: INDIGESTION Apixaban (Eliquis*) 10 mg PO BID [facility] Last Admin: 09/28/18 09:19 Dose: 10 mg Atorvastatin Calcium (Lipitor*) 10 mg PO 1700 [facility] Last Admin: 09/28/18 17:18 Dose: 10 mg Cyclobenzaprine HCl (Flexeril Tab*) 10 mg PO TID PRN PRN Reason: SPASMS Dextrose (D50w Syringe 50 Ml*) 12.5 gm IV PUSH .FOR FS < 60 - SS PRN PRN Reason: FS < 60 Docusate Sodium (Colace Cap*) 100 mg PO BID PRN PRN Reason: CONSTIPATION Furosemide (Lasix Tab*) 20 mg PO DAILY [facility] Last Admin: 09/28/18 09:19 Dose: 20 mg Diltiazem HCl 125 mg/ Sodium (Chloride) 125 mls @ 5 mls/hr IV ONCE ONE; Protocol Stop: 09/29/18 13:44 Last Admin: 09/28/18 13:50 Dose: 5 mls/hr Insulin Human Lispro (Humalog*) 0 units SUBCUT [facility]; Protocol Last Admin: 09/28/18 17:19 Dose: 3 units Losartan Potassium (Cozaar Tab*) 50 mg PO DAILY [facility] Last Admin: 09/28/18 09:19 Dose: 50 mg Magnesium Hydroxide (Milk Of Magnesia Liq*) 30 ml PO Q6H PRN PRN Reason: CONSTIPATION Metoprolol Tartrate (Lopressor Iv*) 5 mg IV Q6H PRN PRN Reason: HEART RATE/PULSE GREATER THAN: Last Admin: 09/28/18 12:20 Dose: 5 mg Metoprolol Tartrate (Lopressor Tab*) 12.5 mg PO Q8H [facility] Last Admin: 09/28/18 17:18 Dose: 12.5 mg Oxycodone HCl (Roxycodone Tab*) 5 mg PO Q4H PRN PRN Reason: PAIN Last Admin: 09/28/18 00:19 Dose: 5 mg Vital Signs - 8 hr 09/28/18 11:12 Temperature 98.2 F Pulse Rate 56 Respiratory 22 Rate Blood Pressure 132/57 (mmHg) O2 Sat by Pulse 98 Oximetry Oxygen Devices in Use Now: None, CPAP Eyes: No Scleral Icterus Neck: NL Appearance and Movements; NL JVP Respiratory: Symmetrical Chest Expansion and Respiratory Effort, Clear to Auscultation Cardiovascular: - - irregularly irregular Abdominal: NL Sounds; No Tenderness; No Distention Extremities: - - 1+ Edema Result Diagrams: 09/28/18 05:14 09/28/18 05:14 Microbiology and Other Data: Microbiology 09/27/18 16:55 Aerobic Blood Culture - Preliminary Blood Venous No Growth Day 1 Anaerobic Blood Culture - Preliminary No Growth Day 1 09/27/18 14:20 Stool Gross Appearance - Final Stool C. difficile DNA Amplification - Final 027 Presumptive NEGATIVE Toxigenic C.diff NEGATIVE Assess/Plan/Problems-Billing Assessment: - Patient Problems (1) Pulmonary embolus Current Visit: Yes Status: Acute Code(s): I26.99 - OTHER PULMONARY EMBOLISM WITHOUT ACUTE COR PULMONALE SNOMED Code(s): 21322988 Comment: on Eliquis 10 mg bid therapeutic dose hemodynamically stable Considered switching to heparin drip in the acute setting as he had the PE when he was on Eliquis propylactic dose in the post op setting. Discussed case with Hematology for input and they suggest Eliquis in the full dose is appropriate if the patient is hemodynamically stable. (2) Atrial fibrillation and flutter Current Visit: Yes Status: Acute Code(s): I48.91 - UNSPECIFIED ATRIAL FIBRILLATION; I48.92 - UNSPECIFIED ATRIAL FLUTTER SNOMED Code(s): 495014949 Comment: in the setting of acute PE also predisposition with chronic MARK and cor pulmonale Appreciate Dr Pratt input Continue B sonia and anticoag with Eliquis Will also need Tachycardia to compensate currently and will watch closely On diltiazem drip per cards and will closely follow clinical status (3) MARK (obstructive sleep apnea) Current Visit: No Status: Acute Code(s): G47.33 - OBSTRUCTIVE SLEEP APNEA ( ADULT) (PEDIATRIC) SNOMED Code(s): 54391166 Comment: - Use home CPAP (4) Non-insulin dependent type 2 diabetes mellitus Current Visit: No Status: Acute Code(s): E11.9 - TYPE 2 DIABETES MELLITUS WITHOUT COMPLICATIONS SNOMED Code(s): 80538325 Comment: -On insulin currently -Can restart home meds at time of discharge (5) Arthritis Current Visit: Yes Status: Acute Code(s): M19.90 - UNSPECIFIED OSTEOARTHRITIS, UNSPECIFIED SITE SNOMED Code(s): 9922706 Comment: s/p R TKA Followed by ortho PT/OT
[2018-09-28 22:55] LABS: Troponin I 0.09 ng/mL (<0.04)
[2018-09-28] MEDS: Diltiazem TAB* 60 MG PO SCH (23:20)
[2018-09-29] MEDS: Metoprolol Tartrate TAB* 25 MG PO SCH ×2 (02:01→09:28)
[2018-09-29 05:31] LABS: ABS Basophils 0.1 10^3/ul (0-0.2); ABS Eosinophils 0.1 10^3/ul (0-0.6); ABS Lymphocytes 1.9 10^3/ul (1.0-4.8); ABS Monocytes 1.1 10^3/ul (0-0.8); ABS Neutrophils 7.1 10^3/ul (1.5-7.7); Eosinophil % 1.1 %; Hematocrit 29 % (42-52); Lymphocyte % 18.1 %; Mean Corpuscular HGB Conc 34 g/dL (31-36); Mean Corpuscular Hemoglobin 31 pg (27-31); Mean Corpuscular Volume 90 fL (80-94); Mean Platelet Volume 7.3 fL (7.4-10.4); Nucleated Red Blood Cells % 0.1; Platelet Count 304 10^3/uL (150-450); Red Blood Count 3.23 10^6 /uL (4.18-5.48); Red Cell Distribution Width 14 % (10.5-15); White Blood Count 10.3 10^3/uL (3.5-10.8)
[2018-09-29 05:45] LABS: Anion Gap 8 mmol/L (2-11); BUN/Creatinine Ratio 21.8 (8-20); Blood Urea Nitrogen 19 mg/dL (6-24); CO2 Carbon Dioxide 22 mmol/L (22-32); Calcium 7.9 mg/dL (8.6-10.3); Chloride 103 mmol/L (101-111); EGFR African American 100.7 (>60); EGFR Non-African American 83.2 (>60); Glucose 146 mg/dL (70-100); Potassium 3.9 mmol/L (3.5-5.0); Sodium 133 mmol/L (135-145)
[2018-09-29] MEDS: Diltiazem TAB* 60 MG PO SCH (05:45)
--- NOTE | 2018-09-29 08:15 | PN ---
Progress Note - Progress Note Date of Service: 09/29/18 SOAP: Subjective: resting comfortably in bed, no significant complaints of pain, continues mild/ mod SOB Objective: Vital Signs Temp Pulse Resp BP Pulse Ox 98.3 F 77 20 116/39 97 09/29/18 04:00 09/29/18 04:00 09/29/18 07:09 09/29/18 04:00 09/29/18 04:00 Laboratory Last Values WBC 10.3 10^3/uL (3.5-10.8) 09/29/18 04:53 RBC 3.23 10^6 /uL (4.18-5.48) L 09/29/18 04:53 Hgb 10.0 g/dL (14.0-18.0) L 09/29/18 04:53 Hct 29 % (42-52) L 09/29/18 04:53 MCV 90 fL (80-94) 09/29/18 04:53 MCH 31 pg (27-31) 09/29/18 04:53 MCHC 34 g/dL (31-36) 09/29/18 04:53 RDW 14 % (10.5-15) 09/29/18 04:53 Plt Count 304 10^3/uL (150-450) 09/29/18 04:53 MPV 7.3 fL (7.4-10.4) L 09/29/18 04:53 Neut % (Auto) 69.1 % 09/29/18 04:53 Lymph % (Auto) 18.1 % 09/29/18 04:53 Evangeline % (Auto) 11.0 % 09/29/18 04:53 Eos % (Auto) 1.1 % 09/29/18 04:53 Baso % (Auto) 0.7 % 09/29/18 04:53 Absolute Neuts (auto) 7.1 10^3/ul (1.5-7.7) 09/29/18 04:53 Absolute Lymphs (auto) 1.9 10^3/ul (1.0-4.8) 09/29/18 04:53 Absolute Monos (auto) 1.1 10^3/ul (0-0.8) H 09/29/18 04:53 Absolute Eos (auto) 0.1 10^3/ul (0-0.6) 09/29/18 04:53 Absolute Basos (auto) 0.1 10^3/ul (0-0.2) 09/29/18 04:53 Absolute Nucleated RBC 0.0 10^3/ul 09/29/18 04:53 Nucleated RBC % 0.1 09/29/18 04:53 Sodium 133 mmol/L (135-145) L 09/29/18 04:53 Potassium 3.9 mmol/L (3.5-5.0) 09/29/18 04:53 Chloride 103 mmol/L (101-111) 09/29/18 04:53 Carbon Dioxide 22 mmol/L (22-32) 09/29/18 04:53 Anion Gap 8 mmol/L (2-11) 09/29/18 04:53 BUN 19 mg/dL (6-24) 09/29/18 04:53 Creatinine 0.87 mg/dL (0.67-1.17) 09/29/18 04:53 Est GFR ( Amer) 100.7 (>60) 09/29/18 04:53 Est GFR (Non-Af Amer) 83.2 (>60) 09/29/18 04:53 BUN/Creatinine Ratio 21.8 (8-20) H 09/29/18 04:53 Glucose 146 mg/dL (70-100) H 09/29/18 04:53 POC Glucose (mg/dL) 164 mg/dL (70-100) H 09/28/18 20:18 Calcium 7.9 mg/dL (8.6-10.3) L 09/29/18 04:53 Troponin I 0.09 ng/mL (<0.04) H* 09/28/18 22:26 TSH 2.24 mcIU/mL (0.34-5.60) 09/28/18 05:14 Urine Color Yellow 09/27/18 23:00 Urine Appearance Cloudy 09/27/18 23:00 Urine pH 5.0 (5-9) 09/27/18 23:00 Ur Specific [place] 1.019 (1.010-1.030) 09/27/18 23:00 Urine Protein Negative (Negative) 09/27/18 23:00 Urine Ketones Trace (Negative) A 09/27/18 23:00 Urine Blood 1+ (Negative) A 09/27/18 23:00 Urine Nitrate Negative (Negative) 09/27/18 23:00 Urine Bilirubin Negative (Negative) 09/27/18 23:00 Urine Urobilinogen Negative (Negative) 09/27/18 23:00 Ur Leukocyte Esterase Trace (Negative) A 09/27/18 23:00 Urine WBC (Auto) 2+(11-20/hpf) (Absent) A 09/27/18 23:00 Urine RBC (Auto) Trace(0-2/hpf) (Absent) 09/27/18 23:00 Ur Squamous Epith Cells Present (Absent) A 09/27/18 23:00 Urine Bacteria Absent (Absent) 09/27/18 23: Urine Glucose Negative (Negative) 09/27/18 23:00 incision: c/d/i PE: NVI Assessment: s/p right TKA( 09/24) with PE Plan: 1) hospitalist co-managing- HR WNL 2) continue DVT prophyaxis 3) PT/OT- WBAT
[2018-09-29] MEDS: Furosemide TAB* 20 MG PO SCH (08:46)
[2018-09-29] MEDS: Acetaminophen TAB* 325 MG PO PRN ×3 (08:47→20:16)
[2018-09-29] MEDS: Losartan TAB* 25 MG PO SCH (08:47)
[2018-09-29] MEDS: Insulin LISPRO* 1 UNITS UNIT SUBCUT SCH ×4 (08:48→22:02)
[2018-09-29] MEDS: Apixaban* 5 MG TAB PO SCH ×2 (09:28→20:16)
--- NOTE | 2018-09-29 10:45 | PN ---
Subjective Date of Service: 09/29/18 Interval History: No sob.No CP. No palpatations. Was transitioned off the Cardizem drip and currently on Metoprolol 12.5 mg q8h and cardizem 60 mg q6h with Hr in the 70s in A fib this am on tele monitor Objective Active Medications: Acetaminophen (Tylenol Tab*) 650 mg PO Q4H PRN PRN Reason: PAIN Last Admin: 09/29/18 08:47 Dose: 650 mg Al Hydrox/Mg Hydrox/Simethicone (Maalox Plus*) 30 ml PO Q6H PRN PRN Reason: INDIGESTION Apixaban (Eliquis*) 10 mg PO BID [facility] Last Admin: 09/29/18 09:28 Dose: 10 mg Atorvastatin Calcium (Lipitor*) 10 mg PO 1700 [facility] Last Admin: 09/28/18 17:18 Dose: 10 mg Cyclobenzaprine HCl (Flexeril Tab*) 10 mg PO TID PRN PRN Reason: SPASMS Dextrose (D50w Syringe 50 Ml*) 12.5 gm IV PUSH .FOR FS < 60 - SS PRN PRN Reason: FS < 60 Docusate Sodium (Colace Cap*) 100 mg PO BID PRN PRN Reason: CONSTIPATION Furosemide (Lasix Tab*) 20 mg PO DAILY [facility] Last Admin: 09/29/18 08:46 Dose: 20 mg Insulin Human Lispro (Humalog*) [address] [facility]; Protocol Last Admin: 09/29/18 08:48 Dose: 3 units Losartan Potassium (Cozaar Tab*) 50 mg PO DAILY [facility] Last Admin: 09/29/18 08:47 Dose: 50 mg Magnesium Hydroxide (Milk Of Magnesia Liq*) 30 ml PO Q6H PRN PRN Reason: CONSTIPATION Metoprolol Succinate (Toprol Xl Tab*) 50 mg PO DAILY [facility] Metoprolol Tartrate (Lopressor Iv*) 5 mg IV Q6H PRN PRN Reason: HEART RATE/PULSE GREATER THAN: Last Admin: 09/28/18 12:20 Dose: 5 mg Oxycodone HCl (Roxycodone Tab*) 5 mg PO Q4H PRN PRN Reason: PAIN Last Admin: 09/28/18 00:19 Dose: 5 mg Vital Signs - 8 hr 09/29/18 09/29/18 09/29/18 04:00 07:09 07:49 Temperature 98.3 F 97.3 F Pulse Rate 77 77 Respiratory 16 20 28 Rate Blood Pressure 116/39 137/44 (mmHg) O2 Sat by Pulse 97 97 Oximetry Oxygen Devices in Use Now: None, CPAP Eyes: No Scleral Icterus Neck: NL Appearance and Movements; NL JVP, Trachea Midline Respiratory: Symmetrical Chest Expansion and Respiratory Effort, Clear to Auscultation Cardiovascular: NL Sounds; No Murmurs; No JVD, RRR Abdominal: NL Sounds; No Tenderness; No Distention Extremities: No Edema Neurological: Alert and Oriented x 3 Result Diagrams: 09/29/18 04:53 09/29/18 04:53 Microbiology and Other Data: Microbiology 09/27/18 16:55 Aerobic Blood Culture - Preliminary Blood Venous No Growth Day 1 Anaerobic Blood Culture - Preliminary No Growth Day 1 09/27/18 14:20 Stool Gross Appearance - Final Stool C. difficile DNA Amplification - Final 027 Presumptive NEGATIVE Toxigenic C.diff NEGATIVE Assess/Plan/Problems-Billing Assessment: - Patient Problems (1) Pulmonary embolus Current Visit: Yes Status: Acute Code(s): I26.99 - OTHER PULMONARY EMBOLISM WITHOUT ACUTE COR PULMONALE SNOMED Code(s): 74987883 Comment: on Eliquis 10 mg bid therapeutic dose hemodynamically stable Considered switching to heparin drip in the acute setting as he had the PE when he was on Eliquis propylactic dose in the post op setting. Discussed case with Hematology for input and they suggest Eliquis in the full dose is appropriate if the patient is hemodynamically stable. Patient improving.Not SOB (2) Atrial fibrillation and flutter Current Visit: Yes Status: Acute Code(s): I48.91 - UNSPECIFIED ATRIAL FIBRILLATION; I48.92 - UNSPECIFIED ATRIAL FLUTTER SNOMED Code(s): 292152496 Comment: in the setting of acute PE also predisposition with chronic MARK and cor pulmonale Appreciate Dr Pratt input Was on cardizem drip yesterday and B sonia.Transitioned to PO overnight and currently HR in 70s on metoprolol 12.5 mg q8h and cardizem 60 mg po q6h Will transition to single agent and will change to Toprol XL 50 mg PO Q daily for now and can titrate up to 100 mg based on response.Will stop Cardizem and monitor HR closely. Anticoag with Elimaritois (3) MARK (obstructive sleep apnea) Current Visit: No Status: Acute Code(s): G47.33 - OBSTRUCTIVE SLEEP APNEA ( ADULT) (PEDIATRIC) SNOMED Code(s): 74507473 Comment: - Use home CPAP (4) Non-insulin dependent type 2 diabetes mellitus Current Visit: No Status: Acute Code(s): E11.9 - TYPE 2 DIABETES MELLITUS WITHOUT COMPLICATIONS SNOMED Code(s): 16830355 Comment: -On insulin currently -Can restart home meds at time of discharge (5) Aortic stenosis Current Visit: Yes Status: Acute Code(s): I35.0 - NONRHEUMATIC AORTIC (VALVE ) STENOSIS SNOMED Code(s): 37422190 Comment: Mild to moderate on Echo Not symptomatic in the past Continue B sonia and pt was not on lasix at home and started in the hospital. Will be careful in the setting of . Can recheck CXR in am and if no pul edema and pt not sob, can possibly stop lasix (6) Troponin level elevated Current Visit: Yes Status: Acute Code(s): R74.8 - ABNORMAL LEVELS OF OTHER SERUM ENZYMES SNOMED Code(s): 793126670 Comment: In the setting of PE and demand ischemia Cardiology considering Stress test at some point (7) Arthritis Current Visit: Yes Status: Acute Code(s): M19.90 - UNSPECIFIED OSTEOARTHRITIS, UNSPECIFIED SITE SNOMED Code(s): 7938349 Comment: s/p R TKA Followed by ortho PT/OT
[2018-09-29] MEDS: Metoprolol Succinate XL TAB* 50 MG PO SCH (11:01)
[2018-09-29 13:37] LABS: Troponin I 0.08 ng/mL (<0.04)
[2018-09-29] MEDS: Atorvastatin* 10 MG TAB PO SCH (17:20)
[2018-09-30 05:52] LABS: Hematocrit 31 % (42-52); Hemoglobin 10.5 g/dL (14.0-18.0); Mean Corpuscular HGB Conc 34 g/dL (31-36); Mean Corpuscular Hemoglobin 31 pg (27-31); Mean Corpuscular Volume 90 fL (80-94); Mean Platelet Volume 6.8 fL (7.4-10.4); Platelet Count 360 10^3/uL (150-450); Red Cell Distribution Width 14 % (10.5-15); White Blood Count 10.5 10^3/uL (3.5-10.8)
[2018-09-30 06:00] LABS: ABS Basophils 0.1 10^3/ul (0-0.2); ABS Eosinophils 0.2 10^3/ul (0-0.6); ABS Lymphocytes 2.1 10^3/ul (1.0-4.8); Eosinophil % 1.7 %; Lymphocyte % 20.3 %; Nucleated Red Blood Cells % 0.2
[2018-09-30 06:12] LABS: BUN/Creatinine Ratio 18.6 (8-20); Calcium 8.3 mg/dL (8.6-10.3); EGFR Non-African American 84.3 (>60)
[2018-09-30] MEDS: Acetaminophen TAB* 325 MG PO PRN ×2 (09:26→15:31)
[2018-09-30] MEDS: Apixaban* 5 MG TAB PO SCH ×2 (09:27→21:49)
[2018-09-30] MEDS: Insulin LISPRO* 1 UNITS UNIT SUBCUT SCH ×4 (09:27→21:41)
[2018-09-30] MEDS: Losartan TAB* 25 MG PO SCH (09:27)
[2018-09-30] MEDS: Furosemide TAB* 20 MG PO SCH (09:27)
[2018-09-30] MEDS: Metoprolol Succinate XL TAB* 50 MG PO SCH (09:27)
--- NOTE | 2018-09-30 11:36 | PN ---
Progress Note - Progress Note Date of Service: 09/30/18 SOAP: Subjective: [] Pt seen at bedside. He reports he feels well. Denies any chest pain or shortness of breath now as well as throughout the duration of his stay at [facility]. Denies nausea, dizziness. Reports dressing was changed this morning by nursing. Objective: []General: laying comfortably in bed, NAD RLE: Dressing CDI without surrounding erythema, thigh soft, DF/PF intact, DP2+, sensation intact to light touch distally, Calves are supple and nontender without erythema, edema or palpable cords Assessment: 87 yo M s/p RTKA with postop complication of PE and afib/aflutter Plan: Pt. is on PO metoprolol, sinus rhythm Appreciate hospitalist and cardiology care Continue eliquis 10 mg PO BID per cardio/hospitalist recommendations Continue PT and range of motion for right knee. Ortho to follow. When medically stable would recommend back to [facility] if this is a possibility Vital Signs Temp 98.9 F 09/30/18 08:00 Pulse 73 09/30/18 08:00 Resp 16 09/30/18 08:00 BP 133/45 09/30/18 08:00 Pulse Ox 98 09/30/18 08:00 Intake & Output 09/29/18 09/30/18 09/30/18 18:59 06:59 18:59 Intake Total 1080 480 120 Output Total 950 Balance 1080 -470 120 Intake: Oral 1080 480 120 Output: Urine 950 Other: Estimated Void Medium # Bowel Movements 1 Estimated Stool Amount Large # Voids 2 Laboratory Last Values WBC 10.5 10^3/uL (3.5-10.8) 09/30/18 05:35 RBC 3.40 10^6 /uL (4.18-5.48) L 09/30/18 05:35 Hgb 10.5 g/dL (14.0-18.0) L 09/30/18 05:35 Hct 31 % (42-52) L 09/30/18 05:35 MCV 90 fL (80-94) 09/30/18 05:35 MCH 31 pg (27-31) 09/30/18 05:35 MCHC 34 g/dL (31-36) 09/30/18 05:35 RDW 14 % (10.5-15) 09/30/18 05:35 Plt Count 360 10^3/uL (150-450) 09/30/18 05:35 MPV 6.8 fL (7.4-10.4) L 09/30/18 05:35 Neut % (Auto) 67.4 % 09/30/18 05:35 Lymph % (Auto) 20.3 % 09/30/18 05:35 [place] % (Auto) 10.0 % 09/30/18 05:35 Eos % (Auto) 1.7 % 09/30/18 05:35 Baso % (Auto) 0.6 % 09/30/18 05:35 Absolute Neuts (auto) 7.0 10^3/ul (1.5-7.7) 09/30/18 05:35 Absolute Lymphs (auto) 2.1 10^3/ul (1.0-4.8) 09/30/18 05:35 Absolute Monos (auto) 1.0 10^3/ul (0-0.8) H 09/30/18 05:35 Absolute Eos (auto) 0.2 10^3/ul (0-0.6) 09/30/18 05:35 Absolute Basos (auto) 0.1 10^3/ul (0-0.2) 09/30/18 05:35 Absolute Nucleated RBC 0.0 10^3/ul 09/30/18 05:35 Nucleated RBC % 0.2 09/30/18 05:35 Sodium 135 mmol/L (135-145) 09/30/18 05:35 Potassium 4.0 mmol/L (3.5-5.0) 09/30/18 05:35 Chloride 103 mmol/L (101-111) 09/30/18 05:35 Carbon Dioxide 23 mmol/L (22-32) 09/30/18 05:35 Anion Gap 9 mmol/L (2-11) 09/30/18 05:35 BUN 16 mg/dL (6-24) 09/30/18 05:35 Creatinine 0.86 mg/dL (0.67-1.17) 09/30/18 05:35 Est GFR ( Amer) 102.0 (>60) 09/30/18 05:35 Est GFR (Non-Af Amer) 84.3 (>60) 09/30/18 05:35 BUN/Creatinine Ratio 18.6 (8-20) 09/30/18 05:35 Glucose 140 mg/dL (70-100) H 09/30/18 05:35 POC Glucose (mg/dL) 154 mg/dL (70-100) H 09/29/18 20:55 Calcium 8.3 mg/dL (8.6-10.3) L 09/30/18 05:35 Troponin I 0.08 ng/mL (<0.04) H* 09/29/18 04:53 TSH 2.24 mcIU/mL (0.34-5.60) 09/28/18 05:14 Urine Color Yellow 09/27/18 23:00 Urine Appearance Cloudy 09/27/18 23:00 Urine pH 5.0 (5-9) 09/27/18 23:00 Ur Specific Martha 1.019 (1.010-1.030) 09/27/18 23:00 Urine Protein Negative (Negative) 09/27/18 23:00 Urine Ketones Trace (Negative) A 09/27/18 23:00 Urine Blood 1+ (Negative) A 09/27/18 23:00 Urine Nitrate Negative (Negative) 09/27/18 23:00 Urine Bilirubin Negative (Negative) 09/27/18 23:00 Urine Urobilinogen Negative (Negative) 09/27/18 23:00 Ur Leukocyte Esterase Trace (Negative) A 09/27/18 23:00 Urine WBC (Auto) 2+(11-20/hpf) (Absent) A 09/27/18 23:00 Urine RBC (Auto) Trace(0-2/hpf) (Absent) 09/27/18 23:00 Ur Squamous Epith Cells Present (Absent) A 09/27/18 23:00 Urine Bacteria Absent (Absent) 09/27/18 23:00 Urine Glucose Negative (Negative) 09/27/18 23:00
--- NOTE | 2018-09-30 14:42 | PN ---
Subjective Date of Service: 09/30/18 Interval History: Mr. Reyes is feeling well today. He offers no complaints. He has been up ambulating around the unit with a walker twice today. Pain at the worst is 2/10 after ambulation. He denies CP, SOB, N/V, dizziness. No concerns from nursing. Tele: NSR in the 80s. Family History: Unchanged from Admission Social History: Unchanged from Admission Past Medical History: Unchanged from Admission Objective Active Medications: Acetaminophen (Tylenol Tab*) 650 mg PO Q4H PRN PAIN Al Hydrox/Mg Hydrox/Simethicone (Maalox Plus*) 30 ml PO Q6H PRN INDIGESTION Apixaban (Eliquis*) 10 mg PO BID SERGIO Atorvastatin Calcium (Lipitor*) 10 mg PO 1700 SERGIO Cyclobenzaprine HCl (Flexeril Tab*) 10 mg PO TID PRN SPASMS Dextrose (D50w Syringe 50 Ml*) 12.5 gm IV PUSH .FOR FS < 60 - SS PRN FS < 60 Docusate Sodium (Colace Cap*) 100 mg PO BID PRN CONSTIPATION Furosemide (Lasix Tab*) 20 mg PO DAILY [facility] Insulin Human Lispro (Humalog*) 0 units SUBCUT ACHS SERGIO; Protocol Losartan Potassium (Cozaar Tab*) 50 mg PO DAILY SERGIO Magnesium Hydroxide (Milk Of Magnesia Liq*) 30 ml PO Q6H PRN CONSTIPATION Metoprolol Succinate (Toprol Xl Tab*) 50 mg PO DAILY [facility] Metoprolol Tartrate (Lopressor Iv*) 5 mg IV Q6H PRN HEART RATE/PULSE GREATER THAN: Oxycodone HCl (Roxycodone Tab*) 5 mg PO Q4H PRN PAIN Vital Signs - 8 hr 09/30/18 09/30/18 09/30/18 08:00 09:00 11:59 Temperature 98.9 F 98 F Pulse Rate 73 77 Respiratory 16 16 16 Rate Blood Pressure 133/45 135/59 (mmHg) O2 Sat by Pulse 98 98 Oximetry Oxygen Devices in Use Now: None Appearance: Elderly male sitting in chair in NAD Eyes: No Scleral Icterus Ears/Nose/Mouth/Throat: Mucous Membranes Moist Neck: NL Appearance and Movements; NL JVP, Trachea Midline Respiratory: Symmetrical Chest Expansion and Respiratory Effort, Clear to Auscultation Cardiovascular: NL Sounds; No Murmurs; No JVD, RRR Abdominal: NL Sounds; No Tenderness; No Distention Neurological: Alert and Oriented x 3, NL Sensation Lines/Tubes/Other Access: Clean, Dry and Intact Peripheral IV Nutrition: Taking PO's Result Diagrams: 09/30/18 05:35 09/30/18 05:35 Assess/Plan/Problems-Billing Assessment: Mr. Reyes is an 87 yo M with PMH of DM, HTN, HLD, MARK, and recent R TKA; who was admitted from [facility] after he was found to be hypoxic and in afib with RVR. - Patient Problems (1) Pulmonary embolus Code(s): I26.99 - OTHER PULMONARY EMBOLISM WITHOUT ACUTE COR PULMONALE Comment : - Provoked after R TKA - Clinically improving; no SOB or oxygen requirements - Case previously discussed with Hematology and they suggest Eliquis in the full dose if the patient is hemodynamically stable - Continue Eliquis (2) Atrial fibrillation and flutter Code(s): I48.91 - UNSPECIFIED ATRIAL FIBRILLATION; I48.92 - UNSPECIFIED ATRIAL FLUTTER Comment: - In the setting of acute PE; also predisposition with chronic MARK and cor pulmonale - Now rate controlled - Appreciate Cardiology consult; recommends anticoagulation, trend H&H, maintain potassium >4, decrease caffeine intake - Continue metoprolol, Eliquis (3) Status post total knee replacement, right Code(s): Z96.651 - PRESENCE OF RIGHT ARTIFICIAL KNEE JOINT Comment: - With Dr. Montes on 09/24/18 - Appreciate Ortho consult; stable for d/c back to [facility] from an ortho standpoint - Continue oxycodone, Eliquis (4) Troponin level elevated Code(s): R74.8 - ABNORMAL LEVELS OF OTHER SERUM ENZYMES Comment: - Secondary to demand ischemia and PE - Will need a stress test in the near future, likely as an outpatient (5) Aortic stenosis Code(s): I35.0 - NONRHEUMATIC AORTIC (VALVE) STENOSIS Comment: - Mild to moderate on echo - Not symptomatic in the past - CXR this morning unremarkable for pulmonary edema - D/c furosemide (6) Hypertension Code(s): I10 - ESSENTIAL (PRIMARY) HYPERTENSION Comment: - Hypertensive, SBP 130-150s - Continue metoprolol; increase losartan (7) Non-insulin dependent type 2 diabetes mellitus Code(s): E11.9 - TYPE 2 DIABETES MELLITUS WITHOUT COMPLICATIONS Comment: - Glucose under good control - Will restart metformin and Januvia at d/c - Continue Lispro SS (8) Hyperlipemia Code(s): E78.5 - HYPERLIPIDEMIA, UNSPECIFIED Comment: - Continue atorvastatin (9) MARK (obstructive sleep apnea) Code(s): G47.33 - OBSTRUCTIVE SLEEP APNEA (ADULT) (PEDIATRIC) Comment: - CPAP at HS (10) DVT prophylaxis Code(s): Z29.9 - ENCOUNTER FOR PROPHYLACTIC MEASURES, UNSPECIFIED Comment: - Eliquis (11) Full code status Code(s): Z78.9 - OTHER SPECIFIED HEALTH STATUS Comment: Status and Disposition: Inpatient. Anticipate d/c back to [facility] when medically stable. Will need insurance authorization. Attending: Lisa Bergeron
[2018-09-30] MEDS: Atorvastatin* 10 MG TAB PO SCH (17:44)
[2018-10-01] MEDS: Acetaminophen TAB* 325 MG PO PRN ×2 (06:57→11:07)
[2018-10-01 07:02] LABS: ABS Eosinophils 0.1 10^3/ul (0-0.6); ABS Lymphocytes 2.2 10^3/ul (1.0-4.8); ABS Neutrophils 7.9 10^3/ul (1.5-7.7); Eosinophil % 1.2 %; Hematocrit 32 % (42-52); Hemoglobin 10.8 g/dL (14.0-18.0); Lymphocyte % 19.5 %; Mean Corpuscular HGB Conc 34 g/dL (31-36); Mean Corpuscular Hemoglobin 31 pg (27-31); Mean Corpuscular Volume 90 fL (80-94); Mean Platelet Volume 6.9 fL (7.4-10.4); Nucleated Red Blood Cells % 0.1; Platelet Count 424 10^3/uL (150-450); Red Blood Count 3.52 10^6 /uL (4.18-5.48); Red Cell Distribution Width 14 % (10.5-15); White Blood Count 11.3 10^3/uL (3.5-10.8)
--- NOTE | 2018-10-01 07:33 | PN ---
Progress Note - Progress Note Date of Service: 10/01/18 SOAP: Subjective: Pt. reports minimal pain R knee, denies cp/sob/palpitations Objective: Vital Signs: Temp Pulse Resp BP Pulse Ox 98.6 F 80 18 147/55 98 10/01/18 03:39 10/01/18 03:39 10/01/18 03:39 10/01/18 03:39 10/01/18 03:39 Laboratory Results - last 24 hr 09/30/18 09/30/18 09/30/18 12:15 16:50 21:31 WBC RBC Hgb Hct MCV MCH MCHC RDW Plt Count MPV Neut % (Auto) Lymph % (Auto) [place] % (Auto) Eos % (Auto) Baso % (Auto) Absolute Neuts (auto) Absolute Lymphs (auto) Absolute Monos (auto) Absolute Eos (auto) Absolute Basos (auto) Absolute Nucleated RBC Nucleated RBC % POC Glucose (mg/dL) 152 H 149 H 125 H 10/01/18 05:39 WBC 11.3 H RBC 3.52 L Hgb 10.8 L Hct 32 L MCV 90 MCH 31 MCHC 34 RDW 14 Plt Count 424 MPV 6.9 L Neut % (Auto) 70.1 Lymph % (Auto) 19.5 [place] % (Auto) 8.9 Eos % (Auto) 1.2 Baso % (Auto) 0.3 Absolute Neuts (auto) 7.9 H Absolute Lymphs (auto) 2.2 Absolute Monos (auto) 1.0 H Absolute Eos (auto) 0.1 Absolute Basos (auto) 0.0 Absolute Nucleated RBC 0.0 Nucleated RBC % 0.1 POC Glucose (mg/dL) RLE - dressing intact, inc c/d/i. mod effusion. 5-100 degrees of flexion. distally nvi. Assessment: 88 yo M pod 7 s/p RTKA with postop complication of PE/afib Plan: R knee is doing well cont PT hopefully back to [facility] when medically stable appreciate hospitalist/cardiology care
[2018-10-01] MEDS: Metoprolol Succinate XL TAB* 50 MG PO SCH (08:35)
[2018-10-01] MEDS: Insulin LISPRO* 1 UNITS UNIT SUBCUT SCH ×2 (08:35→13:51)
[2018-10-01] MEDS: Apixaban* 5 MG TAB PO SCH (08:40)
[2018-10-01] MEDS ORDERED: Losartan TAB* 25 MG PO SCH (09:00)
[2018-10-01 09:07] LABS: HDL Cholesterol 30.3 mg/dL
[2018-10-01 13:06] VITALS: BP 137/56
--- NOTE | 2018-10-02 03:18 | DS ---
CC: Dr. Deysi Chen; Dr. Danis Pratt; Dr. Sarina Montes * DISCHARGE SUMMARY: DATE OF ADMISSION: 09/27/18 DATE OF DISCHARGE: 10/01/18 PRIMARY CARE PROVIDER: Dr. Deysi Chen. ORTHOPEDIST: Dr. Sarina Montes. ATTENDING PHYSICIAN: Dr. Veronica Ramsey * (dictated by Sakshi Gaffney NP). PRIMARY DIAGNOSES: 1. Atrial fibrillation with rapid ventricular response. 2. Pulmonary embolus. 3. Status post right total knee arthroplasty. 4. Aortic stenosis. SECONDARY DIAGNOSES: 1. Hypertension. 2. Diabetes mellitus type 2. 3. Hyperlipidemia. 4. Obstructive sleep apnea. STUDIES [facility]: 1. Chest thorax CTA on 09/26/18 reads as moderate volume pulmonary emboli burden with findings of right heart stream. Bilateral pleural effusion and associated lower lobe volume loss. 2. Transthoracic echocardiogram on 09/27/18 reads as there is mild left ventricular concentric hypertrophy. Systolic function is normal. The estimated ejection fraction is 55% to 60%. The right ventricular cavity size is mildly dilated. Wall thickness is mildly increased. Systolic function is mildly to moderately reduced. There is septal flattening of the intraventricular septum consistent with RV volume or pressure overload. The findings are consistent with adln-if-otdznkgo aortic stenosis. There is mild aortic regurgitation. There is mild tricuspid regurgitation. 3. EKG on 09/28/18 shows atrial fibrillation with a rate of 116, QTc 448. 4. EKG on 09/28/18 shows normal sinus rhythm with a rate of 83, QTc 412, first - degree AV block, no ischemic changes. 5. EKG on 09/29/18 shows normal sinus rhythm with a rate of 73, QTc 429, first - degree AV block, no ischemic changes. 6. Chest x-ray on 09/30/18 reads as small bilateral pleural effusions, likely increased over 09/26/2018 CT. Stigmata of probable chronic obstructive pulmonary disease. No compelling evidence of pulmonary vascular congestion/CHF. HISTORY OF PRESENT ILLNESS AND HOSPITAL COURSE: Mr. Reyes is an 88-year-old male with past medical history of diabetes, hypertension, hyperlipidemia, obstructive sleep apnea, and recent right total knee arthroplasty on 09/24/18, who was a direct admission from [facility] on 09/27/18, please see the history and physical by Dr. Jacobson for a complete summary of the events leading up to this hospitalization. In short, the patient had an uneventful right total knee arthroplasty on 09/24/[address] Montes and recovered well. He was then transferred to [facility] on 09/26/18. Thereafter, he was noted to be tachycardic and hypoxic and so a CTA was performed, which showed a moderate volume pulmonary emboli burden with findings of right heart strain. At that point, he had no respiratory complaints and only complained of right knee pain. He did have imaging as noted above and was noted to be in rapid AFib. He was admitted by the hospitalist service. The patient's heart rate responded well to metoprolol. He ultimately did self convert to normal sinus rhythm, though was noted to still have a first-degree AV block. He had no further tachycardia and has been monitored on the telemetry throughout this hospitalization. He was seen in consultation by Dr. Pratt due to this new-onset AFib. At that point, Dr. Pratt recommended anticoagulation, trending his H and H, serial troponins, and EKGs. He recommended maintaining potassium over 4 and decreasing caffeine intake. Additionally, he noted that the patient would ultimately need a stress test in the future. I should note that the patient had been on Eliquis for DVT prophylaxis post orthopedic surgery. This case was discussed with Hematology and they advised that the patient could receive a full dose Eliquis for the typical 7 days. This did not represent a failure on Eliquis. The patient has been followed by Orthopedics during this hospitalization and they have not had any concern and advised that he is stable for discharge back to [facility] whenever possible. The patient did have a lipid panel showing triglycerides of 89, total cholesterol of 118, LDL 70, HDL of 30 indicating good control on his current dose of atorvastatin. Again, the patient has remained in normal sinus rhythm and has not had any further tachycardia. He has not had any respiratory complaints and has been saturating well on room air. On exam, he has no focal neurological deficits. His heart has a regular rate and rhythm without murmurs, rubs, or gallop. Lungs are clear to auscultation without rhonchi, wheezes, or rales. Physical assessment is otherwise benign. Mr. Reyes is stable for discharge today. Vital signs are as follows: Temp 97.6, heart rate 79, respiratory rate 16, oxygen saturation 100% on room air, blood pressure 137/56. DISCHARGE MEDICATIONS: 1. Acetaminophen 650 mg p.o. q.4 hours p.r.n. pain. 2. Eliquis 10 mg p.o. b.i.d. through 10/04/18, then decrease to 5 mg b.i.d. 3. Atorvastatin 10 mg p.o. daily. 4. Flexeril 10 mg p.o. t.i.d. p.r.n. muscle spasms. 5. Docusate 100 mg p.o. b.i.d. p.r.n. constipation. 6. Irbesartan 150 mg p.o. daily. 7. Milk of mag 30 mL p.o. q.6 hours p.r.n. constipation. 8. Metformin 500 mg p.o. b.i.d. 9. Metoprolol succinate 50 mg p.o. daily. 10. Oxycodone 5 mg p.o. q.4 hours p.r.n. pain. 11. Januvia 100 mg p.o. daily. DISCHARGE PLAN: Mr. Narinder Reyes will be discharged to [facility]. Activity will be as tolerated per orthopedic recommendations. Diet will be consistent carb. Medications are noted above. Again, the patient will need to take 10 mg of Eliquis b.i.d. for a total of 7 days, then can transition to 5 mg b.i.d. This does represent a provoked DVT, so he will need to follow up with his PCP after discharge to determine the length of anticoagulation. He additionally has been started on metoprolol for his atrial fibrillation. He can continue his other usual medications as noted above. He should follow up with his primary care provider after discharge from [facility] and will need to follow up with Dr. Pratt in approximately 1 month. He should return to the emergency room or nearest hospital for any worsening of symptoms, shortness of breath, lightheadedness, dizziness, chest discomfort, high fevers, chills, night sweats, loss of consciousness, or any other worrisome signs or symptoms. DISCHARGE CONDITION: Stable. DISCHARGE DISPOSITION: [facility]. This is a summarized report of a complex medical history and hospital stay. For further details, please see the entire medical record. TIME SPENT: Approximately 50 minutes were spent on this discharge. SAKSHI GAFFNEY, RUG DESIGNER [id number]/[facility] #: [id number] [facility] CENTERChantel
== END 2018-10-01 15:21 | DRG 314 ==
LOC: MEDTELE 13:08
PROVIDERS: ADMIT Internal Medicine; ATTEND Internal Medicine
DX: I97.89 Other postprocedural complications and disorders of the circulatory system, not elsewhere classified (principal); I26.09 Other pulmonary embolism with acute cor pulmonale; J90 Pleural effusion, not elsewhere classified; I97.191 Other postprocedural cardiac functional disturbances following other surgery; I48.91 Unspecified atrial fibrillation; I35.0 Nonrheumatic aortic (valve) stenosis; I10 Essential (primary) hypertension; E11.9 Type 2 diabetes mellitus without complications; E78.5 Hyperlipidemia, unspecified; G47.33 Obstructive sleep apnea (adult) (pediatric); I44.0 Atrioventricular block, first degree; J44.9 Chronic obstructive pulmonary disease, unspecified; Z96.651 Presence of right artificial knee joint; E66.9 Obesity, unspecified; R74.8 Abnormal levels of other serum enzymes; Z79.1 Long term (current) use of non-steroidal anti-inflammatories (NSAID); Z79.899 Other long term (current) drug therapy; Z88.0 Allergy status to penicillin; Z68.37 Body mass index [BMI] 37.0-37.9, adult; Z79.84 Long term (current) use of oral hypoglycemic drugs; Z99.89 Dependence on other enabling machines and devices; Z87.891 Personal history of nicotine dependence; Z82.5 Family history of asthma and other chronic lower respiratory diseases
CPT/HCPCS: 36415; 71046; 80048; 80061; 81003; 81015; 84443; 84484; 85025; 87040; 87086; 87493; 93005; 93306; A9270-GY; G8978-GP-CL; G8979-GP-CI; G8987-GO-CL; G8988-GO-CI; J3490

== ENCOUNTER 2018-10-01 11:27 | Inpatient (IN) | payer OTHER, MEDICARE ==
[2018-10-01] MEDS ORDERED: Magnesium Hydroxide LIQ* 30 ML UDC PO PRN (17:02)
[2018-10-01] MEDS ORDERED: Senna TAB PO PRN (17:02)
[2018-10-01] MEDS ORDERED: Atorvastatin* 10 MG TAB PO ONE (17:09)
[2018-10-01] MEDS ORDERED: Dextrose 50% Syringe 50 ML* 25 GM/50 ML SYRINGE IV PUSH PRN (17:10)
[2018-10-01] MEDS: Acetaminophen TAB* 325 MG PO PRN (18:20)
[2018-10-01] MEDS: Insulin LISPRO* 1 UNITS UNIT SUBCUT SCH ×2 (18:22→21:13)
--- NOTE | 2018-10-01 20:22 | HP ---
ADMISSION HISTORY AND PHYSICAL: DATE OF ADMISSION: 10/01/18 REASON FOR ADMISSION: Right total knee replacement; postoperative pulmonary embolus; atrial fibrillation. HISTORY OF PRESENT ILLNESS: Narinder Reyes is an 88-year-old man. He has a long history of right knee pain who had tried and failed conservative treatment including injections into his knee. He saw Dr. Sarina Montes and it was decided he should have a right total knee replacement. He was admitted to [facility] on 09/24/18 and underwent a right total knee replacement that day. He was restarted on his metformin. He was slow to mobilize. He was noted to be tachycardic, but it was thought he might be dry or dehydrated. He was started on IV fluids. He was transferred to the inpatient rehab unit on . On the rehab unit, he was noted to be hypoxic. A CT angiogram of his chest was ordered, which was positive for pulmonary embolus. His Eliquis, which he was on for DVT prophylaxis was increased from 2.5 mg twice a day to 10 mg twice a day. However, the patient's heart rate on the morning of 09/27/18 was noted to be 150. An EKG was done, which showed that he was in atrial fibrillation with rapid ventricular response. He was transferred up to the telemetry service. They actually felt that he was in a-flutter. He was put on IV Lopressor and later this was changed to oral Lopressor with IV Cardizem. He converted back to sinus rhythm. He is now on Toprol-XL as well as back on his Cozaar. He felt his heart rate has come down. He no longer requires supplemental oxygen. He is felt to have physical therapy and occupational therapy needs. He is now being admitted to inpatient rehab so that he may return to independent living. PAST MEDICAL HISTORY: Includes diabetes mellitus, high blood pressure, high cholesterol, and sleep apnea. ALLERGIES: To PENICILLIN. CURRENT MEDICATIONS: Include: 1. Eliquis. 2. He is on Lipitor. 3. Lispro insulin sliding scale coverage. 4. Cozaar. 5. Toprol-XL. SOCIAL HISTORY: He is a nonsmoker, nondrinker. He lives with his in a large housing at [place]. It is a 3-suzie house with 37 steps. 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 REVIEW OF SYSTEMS: At the present time, patient has no shortness of breath or chest pain. PHYSICAL EXAMINATION VITAL SIGNS: Patient's temperature is 98.4, blood pressure is 139/53, pulse 86 , respirations 18. HEENT: His extraocular movements are intact. Tongue is midline. NECK: Supple. LUNGS: Sounded to clear to auscultation bilaterally. HEART: Sounds are regular. S1 and S2 are audible. ABDOMEN: Soft, nontender. EXTREMITIES: His right knee has a wound, which is clean and dry. He has some ecchymosis around his right knee. Right foot remains swollen with edema. His peripheral pulses are intact. NEUROLOGIC: He is awake, alert, oriented. Sensation appeared to be intact to light touch. Muscle strength appeared to be 5/5 except the right knee, which was 3/5 secondary to pain. FUNCTIONAL EXAM: He transfers with contact guard. ASSESSMENT: 1. Right total knee replacement. 2. Postoperative pulmonary embolism. 3. Atrial fibrillation. PLAN: We are going to integrate him into comprehensive and therapeutic rehab program with the following goals: 1. Physical therapy is going to see the patient. They are going to work on functional transfer training, ambulation training with a walker. 2. Occupational therapy will see the patient, work on his activities of daily living including toileting and toilet transfers. 3. For his atrial fibrillation, we will continue his Toprol-XL and his Eliquis. 4. For the pulmonary embolus, continue Eliquis 10 mg twice a day. Sunday morning, he will be lowered to 5 mg twice a day. 5. Adequate analgesia. 6. His bowels will be regulated. 7. services mgr will be closely involved to make sure that any services and equipment the patient requires are in place prior to discharge. 8. Continue sliding scale insulin for diabetes mellitus. We are going to resume metformin. 9. Family training as appropriate. 10. Home with appropriate with services. ESTIMATED LENGTH OF STAY: One week. [id number]/CPS #: [id number] MTDD
[2018-10-01] MEDS: Docusate CAP* 100 MG PO SCH (21:19)
[2018-10-01] MEDS: Apixaban* 5 MG TAB PO SCH (22:22)
[2018-10-02 09:02] LABS: ABS Basophils 0.1 10^3/ul (0-0.2); ABS Eosinophils 0.1 10^3/ul (0-0.6); ABS Lymphocytes 2.2 10^3/ul (1.0-4.8); ABS Neutrophils 8.8 10^3/ul (1.5-7.7); Eosinophil % 0.8 %; Hematocrit 37 % (42-52); Hemoglobin 11.9 g/dL (14.0-18.0); Lymphocyte % 18.2 %; Mean Corpuscular HGB Conc 32 g/dL (31-36); Mean Corpuscular Hemoglobin 30 pg (27-31); Mean Corpuscular Volume 93 fL (80-94); Mean Platelet Volume 7.1 fL (7.4-10.4); Platelet Count 398 10^3/uL (150-450); Red Blood Count 3.96 10^6 /uL (4.18-5.48); Red Cell Distribution Width 14 % (10.5-15); White Blood Count 12.1 10^3/uL (3.5-10.8)
[2018-10-02] MEDS: Apixaban* 5 MG TAB PO SCH ×2 (09:02→21:18)
[2018-10-02] MEDS: Losartan TAB* 25 MG PO SCH (09:02)
[2018-10-02] MEDS: metFORMIN* 500 MG TAB PO SCH ×2 (09:02→16:41)
[2018-10-02] MEDS: Metoprolol Succinate XL TAB* 50 MG PO SCH (09:03)
[2018-10-02] MEDS: Insulin LISPRO* 1 UNITS UNIT SUBCUT SCH ×4 (09:03→21:22)
[2018-10-02] MEDS: Docusate CAP* 100 MG PO SCH ×2 (09:04→21:21)
[2018-10-02 09:15] LABS: Albumin 3.6 g/dL (3.2-5.2); Calcium 8.8 mg/dL (8.6-10.3); Potassium 4.8 mmol/L (3.5-5.0); Total Bilirubin 1.2 mg/dL (0.2-1.0)
[2018-10-02 09:21] LABS: Albumin/Globulin Ratio 1.2 (1-3); BUN/Creatinine Ratio 18.8 (8-20); EGFR African American 110.6 (>60); EGFR Non-African American 91.4 (>60); Globulin 3.1 g/dL (2-4); Total Protein 6.7 g/dL (6.4-8.9)
[2018-10-02] MEDS: Acetaminophen TAB* 325 MG PO PRN ×2 (12:52→16:42)
[2018-10-02] MEDS: Atorvastatin* 10 MG TAB PO SCH (16:42)
--- NOTE | 2018-10-02 19:45 | PN ---
Progress Note Date of Service: 10/02/18 Note: MARICARMEN HOWELL was visited. Therapy notes read and reviewed. A long discussion about his a fib and risk factors, including caffeine intake. He regularly drinks a quadruple espresso in the morning-I advised him to hold on this until he sees Dr. Pratt Current Medications: Active Medications Generic Name Dose Route Start Last Admin Trade Name Freq PRN Reason Stop Dose Admin Acetaminophen 650 mg 10/01/18 17:02 10/02/18 16:42 Tylenol Tab* PO 650 mg Q4H PRN Administration FEVER/PAIN Apixaban 10 mg 10/01/18 21:30 10/02/18 09:02 Eliquis* PO 10/03/18 21:29 10 mg BID SERGIO Administration Apixaban 5 mg 10/04/18 09:00 Eliquis* PO BID SERGIO Atorvastatin Calcium 10 mg 10/02/18 17:00 10/02/18 16:42 Lipitor* PO 10 mg 1700 SERGIO Administration Dextrose 12.5 gm 10/01/18 17:10 D50w Syringe 50 Ml* IV PUSH .FOR FS < 60 - SS PRN FS < 60 Docusate Sodium 100 mg 10/01/18 21:00 10/02/18 09:04 Colace Cap* PO Not Given BID SERGIO Insulin Human Lispro 0 - 15 units 10/01/18 16:30 10/02/18 16:45 Humalog* SUBCUT 3 units ACHS SERGIO Administration Protocol Losartan Potassium 75 mg 10/02/18 09:00 10/02/18 09:02 Cozaar Tab* PO 75 mg DAILY SERGIO Administration Magnesium Hydroxide 30 ml 10/01/18 17:02 Milk Of Magnesia Liq* PO Q6H PRN CONSTIPATION Metformin HCl 500 mg 10/02/18 08:00 10/02/18 16:41 Glucophage* PO 500 mg 0800,1700 SERGIO Administration Metoprolol Succinate 50 mg 10/02/18 09:00 10/02/18 09:03 Toprol Xl Tab* PO 50 mg DAILY SERGIO Administration Senna 2 tab 10/01/18 17:02 Senokot Tab* PO BEDTIME PRN CONSTIPATION Vital Signs: Vital Signs Temp Pulse Resp BP Pulse Ox 97.9 F 80 19 144/41 98 10/02/18 08:00 10/02/18 08:00 10/02/18 19:08 06/05/19 08:00 10/02/18 17:59 Lab Results: Laboratory Results - last 24 hr 10/01/18 10/02/18 10/02/18 20:27 07:54 08:06 WBC 12.1 H RBC 3.96 L Hgb 11.9 L Hct 37 L MCV 93 MCH 30 MCHC 32 RDW 14 Plt Count 398 MPV 7.1 L Neut % (Auto) 72.4 Lymph % (Auto) 18.2 Summers % (Auto) 8.2 Eos % (Auto) 0.8 Baso % (Auto) 0.4 Absolute Neuts (auto) 8.8 H Absolute Lymphs (auto) 2.2 Absolute Monos (auto) 1.0 H Absolute Eos (auto) 0.1 Absolute Basos (auto) 0.1 Absolute Nucleated RBC 0.0 Nucleated RBC % 0.0 Sodium Potassium Chloride Carbon Dioxide Anion Gap BUN Creatinine Est GFR ( Amer) Est GFR (Non-Af Amer) BUN/Creatinine Ratio Glucose POC Glucose (mg/dL) 145 H 188 H Calcium Total Bilirubin AST ALT Alkaline Phosphatase Total Protein Albumin Globulin Albumin/Globulin Ratio 10/02/18 10/02/18 10/02/18 08:06 11:56 16:01 WBC RBC Hgb Hct MCV MCH MCHC RDW Plt Count MPV Neut % (Auto) Lymph % (Auto) Summers % (Auto) Eos % (Auto) Baso % (Auto) Absolute Neuts (auto) Absolute Lymphs (auto) Absolute Monos (auto) Absolute Eos (auto) Absolute Basos (auto) Absolute Nucleated RBC Nucleated RBC % Sodium 130 L Potassium 4.8 Chloride 101 Carbon Dioxide 19 L Anion Gap 10 BUN 15 Creatinine 0.80 Est GFR ( Amer) 110.6 Est GFR (Non-Af Amer) 91.4 BUN/Creatinine Ratio 18.8 Glucose 172 H POC Glucose (mg/dL) 122 H 176 H Calcium 8.8 Total Bilirubin 1.20 H AST 38 ALT 53 H Alkaline Phosphatase 93 Total Protein 6.7 Albumin 3.6 Globulin 3.1 Albumin/Globulin Ratio 1.2 Exam: GENERAL: No distress. LUNGS: Breathing easy, lungs clear HEART: Regular rhythm ABDOMEN: Soft, +BS EXTREMITIES: Right knee with good ROM, can get to 90 degrees NEUROLOGIC: A & O, sensation intact, motor 5/5 except right leg Assessment/Plan: 1. Right TKR: PT/OT. WBAT. Follow up with Dr. Montes 2. Pulmonary Embolus: Eliquis, 10 mg BID through tomorrow, then 5 mg BID 3. Atrial fibrillation: Toprol, Eliquis 4. Diabetes: SSI; Metformin 5. DVT Prophylaxis: Eliquis 6. Advance Directives: Full code 10/02/18 19:42
[2018-10-03] MEDS: Acetaminophen TAB* 325 MG PO PRN ×3 (03:21→14:47)
[2018-10-03] MEDS: Apixaban* 5 MG TAB PO SCH ×2 (07:56→20:50)
[2018-10-03] MEDS: metFORMIN* 500 MG TAB PO SCH ×2 (07:56→16:48)
[2018-10-03] MEDS: Losartan TAB* 25 MG PO SCH (07:57)
[2018-10-03] MEDS: Metoprolol Succinate XL TAB* 50 MG PO SCH (07:57)
[2018-10-03] MEDS: Insulin LISPRO* 1 UNITS UNIT SUBCUT SCH ×4 (08:03→20:39)
[2018-10-03] MEDS: Docusate CAP* 100 MG PO SCH ×2 (08:03→20:39)
--- NOTE | 2018-10-03 16:09 | PMRUTEAM ---
PMRU: Team Meeting Current Status: Nursing: Current Status Skin Deviations [Right Knee] Incision Skin Deviations [Bilateral Bruise Thigh] Skin Deviation Description [ cryo unit in place Right Knee] Physical Therapy: Current Status Bed Mobility Assistance Supervision Transfer Mobility Assistance Supervision Ambulation Assistance Supervision Ambulation Assistive Devices Rolling Walker Stairs Assistance Supervision Stairs Recommended Devices One Rail Number of Stairs 1 flight Occupational Therapy: Current Status Upper Body Dressing Independent Lower Body Dressing Ind with Adaptive Equip Bathing Supervision Toileting Supervision Toilet Transfer Supervision Shower Transfer Contact Guard Assist Eating Independent Rec Therapy: Current Status Summary of Assessment and Information obtained by a combination of input Clinical Impression from his and the patient himself. Pt. was on PMRU then transferred to a medical floor. Pt. has since returned to the unit, information has been recalled as it is unchanged in the past few days. Treatment Goals Pt. will engage in leisure activities while on the unit. Treatment Plan Provide recreation therapy and encourage involvement. Social Work: Current Status Discharge Plan return home with home care svs and family support Potential for Family Training pt's is involved and supportive Anticipated Discharge Home Destination Discharge With home care svs and family support Goals: Physical Therapy: Updated Goals Transfer/Bed Mobility Rolling Walker Recommended Devices Occupational Therapy: Initial Goals Goals to be Completed in (Days 2-4 days ) Upper Body Bathing Routine Supervision/Set Up Lower Body Bathing Routine Supervision/Set Up Upper Body Dressing Routine Independent Lower Body Dressing Routine Modified Independent with Toilet Hygeine and Clothing Modified Independent with Management Routine Toilet Transfer Routine Modified Independent with Step-In Shower Transfer Supervision/Set Up Routine Functional Transfers for ADL Modified Independent with Grooming Routine Independent Feeding Routine Independent Social Work: Goals Discharge Plan return home with home care svs and family support Potential for Family Training pt's is involved and supportive Anticipated Discharge Home Destination Discharge With home care svs and family support Care Plan: Care Plan ADL's - Improve/Maintain Start: 10/03/18 12:05 Freq: DAILY Status: Active Target: Protocol: Activity Type Activity Date Activity User E-Sign Co-Sign Detail Recorded Client Recorded Date Recorded By Document 10/03/18 12:05 [id number] 10/03/18 12:06 [id number] 10/03/18 12:05 PMRU Outcome: ADL's/ADL Transfers Orders/Interventions Occupational Therapy Evaluation & Treatment Device Yes Patient to receive OT 5x/wk for 60-120 Therex min/day Self Care Management Group Therapy Neuromuscular ReEducation UE/LE ADL's with Assist Yes ADL Transfers with Assist Yes Toileting: Transfers,Clothing Management Yes ,Hygeine w/Assist Light Kitchen/Laundry w/Assist Yes Progression Toward Outcome/Goals Progressing Outcome/Goals Met Pt has met OT goals this date . Pt will complete shower next date as he stated he just wanted to wash up this date. Cardiovascular- Improve/Maintain Start: 10/01/18 21:54 Freq: QSHIFT Status: Active Target: Protocol: Activity Type Activity Date Activity User E-Sign Co-Sign Detail Recorded Client Recorded Date Recorded By Document 10/03/18 00:48 [id number] 10/03/18 00:48 [id number] 10/03/18 00:48 PMRU Outcome: Cardiovascular Vital Signs q Shift for 48hrs Then BID Yes Daily Weight Ordered No Current Cardiovascular Outcome/Goal Maintain/ Achieve Baseline HR, BP , Perfusion Progression Toward Outcome/Goal Progressing DVT Prophylaxis- Improve/Maintain Start: 10/01/18 21:54 Freq: QSHIFT Status: Active Target: Protocol: Activity Type Activity Date Activity User E-Sign Co-Sign Detail Recorded Client Recorded Date Recorded By Document 10/03/18 00:48 [id number] 10/03/18 00:48 [id number] 10/03/18 00:48 PMRU Outcome: DVT Prophylaxis Outcome/Goals Remains Free of DVT TEDS Stockings on Every AM, Off at HS Progression Toward Outcome/Goals Progressing Discharge Planning - Improve/Maintain Start: 10/01/18 21:54 Freq: DAILY Status: Active Target: Protocol: Activity Type Activity Date Activity User E-Sign Co-Sign Detail Recorded Client Recorded Date Recorded By Document 10/03/18 00:48 [id number] 10/03/18 00:48 [id number] 10/03/18 00:48 PMRU Outcome: Discharge Planning Update Patient Family No Outcome/Goals Demonstrates Understanding of Discharge Plan Progression Toward Outcome/Goals Progressing Pain/Comfort- Improve/Maintain Start: 10/01/18 21:54 Freq: QSHIFT Status: Active Target: Protocol: Activity Type Activity Date Activity User E-Sign Co-Sign Detail Recorded Client Recorded Date Recorded By Document 10/03/18 00:48 [id number] 10/03/18 00:48 [id number] 10/03/18 00:48 PMRU Outcome: Pain/Comfort Outcome/Goals Demonstrates Knowledge and Use of Available Comfort Measures Progression Toward Outcome/Goals Progressing Outcome/Goals Met Demonstrates Knowledge and Use of Available Comfort Measures Outcome/Goals Met Comment pt denied pain Safety- Improve/Maintain Start: 10/01/18 21:54 Freq: QSHIFT Status: Active Target: Protocol: Activity Type Activity Date Activity User E-Sign Co-Sign Detail Recorded Client Recorded Date Recorded By Document 10/03/18 00:48 [id number] 10/03/18 00:48 [id number] 10/03/18 00:48 PMRU Outcome: Safety Outcome/Goals Remain Free of Injury or Harm Progression Toward Outcome/Goals Progressing Skin- Improve/Maintain Start: 10/01/18 21:54 Freq: QSHIFT Status: Active Target: Protocol: Activity Type Activity Date Activity User E-Sign Co-Sign Detail Recorded Client Recorded Date Recorded By Document 10/03/18 00:48 [id number] 10/03/18 00:48 [id number] 10/03/18 00:48 PMRU Outcome: Skin Skin Risk Level Medium Skin Orders Dressing Change Outcome/Goals Maintain/ Improve Skin Intergrity Surgical Incisions Healing Progression Toward Outcome/Goals Progressing Medicine Note: Length of Stay: 2 days Anticipated Discharge Destination: Home Tentative Discharge Date: 10/05/18 Discharged to: Home
[2018-10-03] MEDS: oxyCODONE/Acetamin 5/325 MG* TAB PO PRN ×2 (16:48→20:51)
[2018-10-03] MEDS: Atorvastatin* 10 MG TAB PO SCH (16:48)
--- NOTE | 2018-10-03 19:20 | PN ---
Progress Note Date of Service: 10/03/18 Note: MARICARMEN HOWELL was visited. Therapy notes read and reviewed. He was discussed in interdisciplinary plan of care rounds. He is doing well with few complaints. Current Medications: Active Medications Generic Name Dose Route Start Last Admin Trade Name Freq PRN Reason Stop Dose Admin Acetaminophen 650 mg 10/01/18 17:02 10/03/18 14:47 Tylenol Tab* PO 650 mg Q4H PRN Administration FEVER/PAIN Apixaban 10 mg 10/01/18 21:30 10/03/18 07:56 Eliquis* PO 10/03/18 21:29 10 mg BID SERGIO Administration Apixaban 5 mg 10/04/18 09:00 Eliquis* PO BID SERGIO Atorvastatin Calcium 10 mg 10/02/18 17:00 10/03/18 16:48 Lipitor* PO 10 mg 1700 SERGIO Administration Dextrose 12.5 gm 10/01/18 17:10 D50w Syringe 50 Ml* IV PUSH .FOR FS < 60 - SS PRN FS < 60 Docusate Sodium 100 mg 10/01/18 21:00 10/03/18 08:03 Colace Cap* PO Not Given BID SERGIO Insulin Human Lispro 0 - 15 units 10/01/18 16:30 10/03/18 16:41 Humalog* SUBCUT Not Given ACHS [facility] Protocol Losartan Potassium 75 mg 10/02/18 09:00 10/03/18 07:57 Cozaar Tab* PO 75 mg DAILY SERGIO Administration Magnesium Hydroxide 30 ml 10/01/18 17:02 Milk Of Magnesia Liq* PO Q6H PRN CONSTIPATION Metformin HCl 500 mg 10/02/18 08:00 10/03/18 16:48 Glucophage* PO 500 mg 0800,1700 SERGIO Administration Metoprolol Succinate 50 mg 10/02/18 09:00 10/03/18 07:57 Toprol Xl Tab* PO 50 mg DAILY SERGIO Administration Oxycodone/Acetaminophen 1 tab 10/03/18 16:16 10/03/18 16:48 Percocet 5/325 Tab* PO 1 tab Q4H PRN Administration PAIN Senna 2 tab 10/01/18 17:02 Senokot Tab* PO BEDTIME PRN CONSTIPATION Vital Signs: Vital Signs Temp Pulse Resp BP Pulse Ox 97.9 F 70 18 152/79 99 10/03/18 15:35 10/03/18 15:35 10/03/18 16:48 10/03/18 15:35 10/03/18 16:04 Lab Results: Laboratory Results - last 24 hr 10/02/18 10/03/18 10/03/18 21:10 07:28 12:09 POC Glucose (mg/dL) 131 H 145 H 132 H 10/03/18 16:38 POC Glucose (mg/dL) 127 H Exam: GENERAL: No distress. LUNGS: Breathing easy, lungs clear HEART: Regular rhythm ABDOMEN: Soft, +BS EXTREMITIES: Right knee with good ROM, can get to 90 degrees NEUROLOGIC: A & O, sensation intact, motor 5/5 except right leg Assessment/Plan: 1. Right TKR: PT/OT. WBAT. Follow up with Dr. Montes 2. Pulmonary Embolus: Eliquis, 10 mg BID through tonight; tomorrow, 5 mg BID 3. Atrial fibrillation: Toprol, Eliquis 4. Diabetes: SSI; Metformin 5. DVT Prophylaxis: Eliquis 6. Advance Directives: Full code 10/03/18 19:20
[2018-10-04] MEDS: oxyCODONE/Acetamin 5/325 MG* TAB PO PRN ×3 (01:10→17:28)
[2018-10-04] MEDS: metFORMIN* 500 MG TAB PO SCH ×2 (09:04→17:00)
[2018-10-04] MEDS: Apixaban* 5 MG TAB PO SCH ×2 (09:04→21:12)
[2018-10-04] MEDS: Losartan TAB* 25 MG PO SCH (09:04)
[2018-10-04] MEDS: Insulin LISPRO* 1 UNITS UNIT SUBCUT SCH ×4 (09:05→20:26)
[2018-10-04] MEDS: Metoprolol Succinate XL TAB* 50 MG PO SCH (09:05)
[2018-10-04] MEDS: Docusate CAP* 100 MG PO SCH ×2 (09:06→21:13)
--- NOTE | 2018-10-04 09:27 | PN ---
Progress Note Date of Service: 10/04/18 Note: MARICARMEN HOWELL was visited. Nursing and therapy notes read and reviewed. No chest pain, shortness of breath or abdominal pain. He feels good and optimistic about heading home tomorrow. Current Medications: Active Medications Generic Name Dose Route Start Last Admin Trade Name Freq PRN Reason Stop Dose Admin Acetaminophen 650 mg 10/01/18 17:02 10/03/18 14:47 Tylenol Tab* PO 650 mg Q4H PRN Administration FEVER/PAIN Apixaban 5 mg 10/04/18 09:00 10/04/18 09:04 Eliquis* PO 5 mg BID SERGIO Administration Atorvastatin Calcium 10 mg 10/02/18 17:00 10/03/18 16:48 Lipitor* PO 10 mg 1700 SERGIO Administration Dextrose 12.5 gm 10/01/18 17:10 D50w Syringe 50 Ml* IV PUSH .FOR FS < 60 - SS PRN FS < 60 Docusate Sodium 100 mg 10/01/18 21:00 10/04/18 09:06 Colace Cap* PO 100 mg BID SERGIO Administration Insulin Human Lispro 0 - 15 units 10/01/18 16:30 10/04/18 09:05 Humalog* SUBCUT 2 units ACHS SERGIO Administration Protocol Losartan Potassium 75 mg 10/02/18 09:00 10/04/18 09:04 Cozaar Tab* PO 75 mg DAILY SERGIO Administration Magnesium Hydroxide 30 ml 10/01/18 17:02 Milk Of Magnesia Liq* PO Q6H PRN CONSTIPATION Metformin HCl 500 mg 10/02/18 08:00 10/04/18 09:04 Glucophage* PO 500 mg 0800,1700 SERGIO Administration Metoprolol Succinate 50 mg 10/02/18 09:00 10/04/18 09:05 Toprol Xl Tab* PO 50 mg DAILY SERGIO Administration Oxycodone/Acetaminophen 1 tab 10/03/18 16:16 10/04/18 06:15 Percocet 5/325 Tab* PO 1 tab Q4H PRN Administration PAIN Senna 2 tab 10/01/18 17:02 Senokot Tab* PO BEDTIME PRN CONSTIPATION Vital Signs: Vital Signs Temp Pulse Resp BP Pulse Ox 97.5 F 78 14 139/48 99 10/04/18 06:00 10/04/18 06:00 10/04/18 09:08 10/04/18 06:00 10/04/18 06:00 Lab Results: Laboratory Results - last 24 hr 10/03/18 10/03/18 10/03/18 12:09 16:38 20:21 POC Glucose (mg/dL) 132 H 127 H 117 H 10/04/18 07:37 POC Glucose (mg/dL) 150 H Exam: GENERAL: No acute distress. Alert and appropriate. LUNGS: Clear to auscultation bilaterally HEART: Regular rate and rhythm ABDOMEN: Soft, + bowel sounds, non-tender, non-distended EXTREMITIES: Mild RLE edema. No calf pain. NEUROLOGIC: BLE motor 5/5 with some right knee pain limitation. Sensation intact BLE. Assessment/Plan: 1. Right TKR: PT/OT. WBAT. Follow up with Dr. Montes 2. Pulmonary Embolus: Eliquis 5 mg BID, f/u with PCP. 3. Atrial fibrillation: Toprol, Eliquis, f/u with PCP and cardiology. 4. Diabetes: SSI; Metformin 5. Mild leukocytosis: persistent throughout admission and appears stable. f/u with PCP. 6. DVT Prophylaxis: Eliquis 7. Advance Directives: Full code 8. Estimated LOS: anticipate d/c tomorrow 10/04/18 09:25
[2018-10-04] MEDS: Acetaminophen TAB* 325 MG PO PRN ×2 (16:19→21:23)
[2018-10-04] MEDS: Atorvastatin* 10 MG TAB PO SCH (17:00)
[2018-10-05] MEDS: oxyCODONE/Acetamin 5/325 MG* TAB PO PRN ×2 (04:45→10:26)
[2018-10-05] MEDS: Apixaban* 5 MG TAB PO SCH (07:55)
[2018-10-05] MEDS: Docusate CAP* 100 MG PO SCH (07:55)
[2018-10-05] MEDS: Losartan TAB* 25 MG PO SCH (07:56)
[2018-10-05] MEDS: metFORMIN* 500 MG TAB PO SCH ×2 (07:56→17:07)
[2018-10-05] MEDS: Metoprolol Succinate XL TAB* 50 MG PO SCH (07:56)
[2018-10-05] MEDS: Insulin LISPRO* 1 UNITS UNIT SUBCUT SCH ×3 (07:57→17:38)
--- NOTE | 2018-10-05 09:43 | PN ---
Progress Note Date of Service: 10/05/18 Note: MARICARMEN HOWELL was visited. Nursing and therapy notes read and reviewed. No chest pain, shortness of breath or abdominal pain. Feels good about going home today. Current Medications: Active Medications Generic Name Dose Route Start Last Admin Trade Name Freq PRN Reason Stop Dose Admin Acetaminophen 650 mg 10/01/18 17:02 10/04/18 21:23 Tylenol Tab* PO 650 mg Q4H PRN Administration FEVER/PAIN Apixaban 5 mg 10/04/18 09:00 10/05/18 07:55 Eliquis* PO 5 mg BID SERGIO Administration Atorvastatin Calcium 10 mg 10/02/18 17:00 10/04/18 17:00 Lipitor* PO 10 mg 1700 SERGIO Administration Dextrose 12.5 gm 10/01/18 17:10 D50w Syringe 50 Ml* IV PUSH .FOR FS < 60 - SS PRN FS < 60 Docusate Sodium 100 mg 10/01/18 21:00 10/05/18 07:55 Colace Cap* PO 100 mg BID SERGIO Administration Insulin Human Lispro 0 - 15 units 10/01/18 16:30 10/05/18 07:57 Humalog* SUBCUT 2 units ACHS SERGIO Administration Protocol Losartan Potassium 75 mg 10/02/18 09:00 10/05/18 07:56 Cozaar Tab* PO 75 mg DAILY SERGIO Administration Magnesium Hydroxide 30 ml 10/01/18 17:02 Milk Of Magnesia Liq* PO Q6H PRN CONSTIPATION Metformin HCl 500 mg 10/02/18 08:00 10/05/18 07:56 Glucophage* PO 500 mg 0800,1700 SERGIO Administration Metoprolol Succinate 50 mg 10/02/18 09:00 10/05/18 07:56 Toprol Xl Tab* PO 50 mg DAILY SERGIO Administration Oxycodone/Acetaminophen 1 tab 10/03/18 16:16 10/05/18 04:45 Percocet 5/325 Tab* PO 1 tab Q4H PRN Administration PAIN Senna 2 tab 10/01/18 17:02 Senokot Tab* PO BEDTIME PRN CONSTIPATION Vital Signs: Vital Signs Temp Pulse Resp BP Pulse Ox 98.0 F 78 18 151/54 98 10/05/18 05:12 10/05/18 05:12 10/05/18 06:45 10/05/18 05:12 10/05/18 05:12 Lab Results: Laboratory Results - last 24 hr 10/04/18 10/04/18 10/04/18 11:41 16:22 20:24 POC Glucose (mg/dL) 115 H 139 H 129 H 10/05/18 07:24 POC Glucose (mg/dL) 140 H Exam: GENERAL: No acute distress. Alert and appropriate. LUNGS: Clear to auscultation bilaterally HEART: Regular rate and rhythm ABDOMEN: Soft, + bowel sounds, non-tender, non-distended EXTREMITIES: Mild RLE edema. No calf pain. Sutures and incision c/d/i NEUROLOGIC: BLE motor 5/5 with some right knee pain limitation. Sensation intact BLE. Assessment/Plan: 1. Right TKR: WBAT. Follow up with Dr. Montes 2. Pulmonary Embolus: Eliquis 5 mg BID, f/u with PCP. 3. Atrial fibrillation: Toprol, Eliquis, f/u with PCP and cardiology. 4. Diabetes: Metformin and restarte januvia at home 5. Mild leukocytosis: persistent throughout admission and appears stable. f/u with PCP. 6. DVT Prophylaxis: Eliquis 7. Advance Directives: Full code 8. Estimated LOS: d/c today 10/05/18 09:42
[2018-10-05] MEDS: Acetaminophen TAB* 325 MG PO PRN ×2 (12:51→17:07)
--- NOTE | 2018-10-05 13:14 | DS ---
CC: Dr. Pratt; Dr. Montes; Hailey Bautista NP; Dr. Chen DISCHARGE SUMMARY: DATE OF ADMISSION: 10/01/18 DATE OF DISCHARGE: 10/05/18 PRIMARY CARE PROVIDER: Hailey Bautista NP/Dr. Chen. ORTHOPEDIC SURGEON: Dr. Montes. TELEPHONE SALES REPRESENTATIVE: Dr. Pratt. REASON FOR ADMISSION: Right total knee replacement complicated by pulmonary embolism and atrial fibrillation. HISTORY OF PRESENT ILLNESS: For full details of his acute hospitalization leading up to his rehabilitation admission on 10/01/18, please see the note dictated by Dr. Haley as well as Mr. Reyes's prior acute medical and rehabilitation history and physicals, progress notes and discharge summaries starting on 09/24/18. Briefly, Mr. Reyes is an 88-year-old man who was admitted on 09/24/18 for elective right total knee replacement. On 09/26/18, he was diagnosed with pulmonary embolism by CTA of the chest after admission to the acute inpatient rehabilitation unit with signs of hypoxia. His Eliquis dose was changed to an anticoagulation level, but on 09/27/18 he developed rapid atrial fibrillation and was transferred to the telemetry service. With IV cardiac medications, he cardioverted back to sinus rhythm and was started on Toprol-XL. He was seen by Dr. Pratt in the cardiology service during that stay. He returned to the inpatient rehabilitation unit on 10/01/18. REHABILITATION COURSE: During his time on the PMRU, his vital signs have remained stable. He has tolerated his medications. It has been noted on routine labs throughout his stay to have a mild level of leukocytosis without any signs of infection. He is advised to follow up with his primary care provider after discharge to see if this is persistent. He has been using metformin and sliding scale insulin for diabetes management in the hospital. Upon discharge, he will not use insulin, but will restart his Januvia. During the time on the PMRU, he participated well with physical therapy, and at the time of discharge, he is independent with bed mobility, transfers with a walker , ambulating with a walker 400 feet, and climbing stairs with 2 rails for a flight, but he should have initial supervision if only using 1 rail. He is independent with a home exercise program. With occupational therapy, he has proved himself to be independent eating. He is also independent with bathing and tub transfers using grab bars, dressing with reach of sock aid and long handled shoe horn and toileting with a raised seat and walker. He should have assistance for simple household tasks. DISCHARGE CONDITION: Good. DISCHARGE DISPOSITION: To home with support. FOLLOWUP: 1. A referral has been sent to visiting nurse services for home care and ongoing therapy. 2. He has an appointment with Dr. Montes on 10/07/18 at 9:45 a.m. for suture removal. 3. Follow up with Dr. Pratt in 1 to 2 weeks. 4. Follow up with Dr. Chen or Hailey Bautista within the next week. DISCHARGE DIAGNOSES: 1. Osteoarthritis, status post right total knee replacement. 2. Postoperative pulmonary embolism. 3. Atrial fibrillation and atrial flutter with rapid ventricular response. 4. Leukocytosis. 5. Noninsulin-dependent diabetes mellitus. 6. Hypertension. 7. Hyperlipidemia. 8. Sleep apnea. DISCHARGE MEDICATIONS: 1. Irbesartan 150 mg daily. 2. Januvia 100 mg q.p.m. 3. Atorvastatin 10 mg q.h.s. 4. Metformin 500 mg b.i.d. 5. Tylenol 650 mg q.4 h. p.r.n. pain. 6. Eliquis 5 mg b.i.d. 7. Colace 100 mg b.i.d. p.r.n. constipation. 8. Toprol-XL 50 mg daily. 9. Percocet 1 tablet q.4 hours p.r.n. severe pain, wean off as tolerated. [id number]/[facility] #: [id number] [facility]ITALChantel
[2018-10-05 16:14] VITALS: BP 141/39
[2018-10-05] MEDS: Atorvastatin* 10 MG TAB PO SCH (17:07)
== END 2018-10-05 17:55 | disposition home health service (06) | DRG 559 ==
LOC: PMRU 15:26
PROVIDERS: ADMIT Physical Medicine & Rehabilitation; ATTEND Physical Medicine & Rehabilitation
PROC: F07Z5ZZ Bed Mobility Treatment (ICD-10-PCS; principal; 2018-10-01)
PROC: F07Z9ZZ Gait Training/Functional Ambulation Treatment (ICD-10-PCS; 2018-10-01)
PROC: F07Z8ZZ Transfer Training Treatment (ICD-10-PCS; 2018-10-01)
PROC: F08Z0ZZ Bathing/Showering Techniques Treatment (ICD-10-PCS; 2018-10-01)
PROC: F08Z1ZZ Dressing Techniques Treatment (ICD-10-PCS; 2018-10-01)
PROC: F08Z3ZZ Feeding/Eating Treatment (ICD-10-PCS; 2018-10-01)
DX: Z47.1 Aftercare following joint replacement surgery (principal); I26.99 Other pulmonary embolism without acute cor pulmonale; I48.92 Unspecified atrial flutter; Z96.651 Presence of right artificial knee joint; I48.91 Unspecified atrial fibrillation; D72.829 Elevated white blood cell count, unspecified; E11.9 Type 2 diabetes mellitus without complications; I10 Essential (primary) hypertension; E78.5 Hyperlipidemia, unspecified; G47.30 Sleep apnea, unspecified; E78.00 Pure hypercholesterolemia, unspecified; Z79.84 Long term (current) use of oral hypoglycemic drugs; Z88.0 Allergy status to penicillin; Z79.01 Long term (current) use of anticoagulants; Z79.899 Other long term (current) drug therapy
CPT/HCPCS: 36415; 80053; 85025; A9270-GY